=== PATIENT | male | born 1960 | race Caucasian/White ===

== ENCOUNTER 2018-02-19 07:33 | Emergency (ER) | payer MEDICARE ==
[~2018-02-19] VITALS: Ht 177.8 cm; Wt 104.5 kg
[~2018-02-19 07:33] MED LIST: ASPIRIN325 MG PO; DOXYCYCLINE HY100 M2 PO; FOLATE0.4 MG; FOLIC ACID1 MG PO; HUMIRA20 MG/0.4 SQ; MEDROL2 MG PO; NAPROSYN500 MG PO; NORCO 10/325 TA1 TA1 PO; NORCO 5/325 TAB1 TA1 PO; OXYCODONE HCL5 MG PO; PRILOSEC20 MG PO; ROCEPHIN 2 GM/D52 G1 IV; SILVASORB HYDRO45 GM TP; TREXALL10 MG PO; VIBRAMYCIN 100100 MG PO
[2018-02-19 07:37] VITALS: Ht 177.8 cm; Wt 104.5 kg
[2018-02-19] MEDS ORDERED: NEURONTIN 300300 MG PO (07:39)
[2018-02-19] MEDS ORDERED: NORCO 10-325 TA1 TAB PO (07:39)
[2018-02-19] MEDS ORDERED: MEDROL4 MG PO (07:39)
[2018-02-19] MEDS ORDERED: DILAUDID4 MG PO (08:05)
[2018-02-19] MEDS ORDERED: MINOCIN100 MG PO (08:05)
[2018-02-19 08:29] VITALS: BP 141/78
== END 2018-02-19 08:22 | disposition home or self-care (01) ==
LOC: D.ER 07:33
DX: L03.032 Cellulitis of left toe (principal); R23.4 Changes in skin texture; I73.9 Peripheral vascular disease, unspecified; M06.9 Rheumatoid arthritis, unspecified; I25.10 Atherosclerotic heart disease of native coronary artery without angina pectoris; J44.9 Chronic obstructive pulmonary disease, unspecified; K21.9 Gastro-esophageal reflux disease without esophagitis; F17.200 Nicotine dependence, unspecified, uncomplicated

== ENCOUNTER → 2018-03-01 15:58 | Outpatient (CLI) | payer MEDICARE ==
[2018-02-19 07:37] VITALS: BMI 33.0
[~2018-03-01 15:58] MED LIST changes: +ASPIRIN81 MG PO; +DILAUDID4 MG PO; +LEVOFLOXACIN500 MG PO; +MEDROL4 MG PO; +MINOCIN100 MG PO; +NEURONTIN 300300 MG PO; +NORCO 10-325 TA1 TAB PO; +Nicoderm [PBKC] TRANSDERM; +PLAVIX75 MG PO
== END | disposition home or self-care (01) ==
LOC: D.LABREF 15:58
DX: L03.032 Cellulitis of left toe (principal)

== ENCOUNTER → 2018-03-13 09:26 | Outpatient (CLI) | payer MEDICARE ==
[2018-02-19 07:37] VITALS: BMI 33.0
== END | disposition home or self-care (01) ==
LOC: D.CT 09:26
DX: I70.213 Atherosclerosis of native arteries of extremities with intermittent claudication, bilateral legs (principal); I73.9 Peripheral vascular disease, unspecified

== ENCOUNTER 2018-03-25 09:36 | Inpatient (IN) | payer MEDICARE ==
[~2018-03-25] VITALS: Ht 177.8 cm; Wt 104.3 kg
--- NOTE | ~2018-03-25 | MORECARE ---
CASE MANAGEMENT DISCHARGE SUMMARY PATIENT: GOSIA AMES UNIT: [id number] ADM DATE: 03/25/18 AGE: 57 : 64 SEX: M ROOM/BED: D.2238 AUTHOR: CHANTELLE,DOC PHYSICIAN: REFERRING PHYSICIAN: BRANDIN RUELAS MD DATE OF SERVICE: 03/28/18 Discharge Plan Patient Name: GOSIA AMES Facility: [facility]:[place] : 1960 Planned Disposition: Home with Home Health Anticipated Discharge Date: 03/28/18 Discharge Date: Expected LOS: 3 Initial Reviewer: [email or web address] Initial Review Date: 03/28/2018 Generated: 03/28/18 5:41 pm Comments DCP- Discharge Planning Updated by [email or web address]: Daija Calixto on 03/28/18 3:[address] Patient Name: GOSIA AMES Admission Status: ER Accout number: [id number] Admission Date: 03-25-2018 : 1960 Admission Diagnosis:NON-PRESSURE CHRONIC ULCER OF SKIN OF SITES W UNSP KALI Attending: BRANDIN RUELAS Current LOS: 3 Anticipated DC Date: 03-28-2018 Planned Disposition: Home with Home Health Primary Insurance: MEDICARE A & B Discharge Planning Comments: Received order for discharge. I met with patient and daughter to discuss discharge planning. He is going to live with her at [address] [place] [address]. He states he is active with all ADL's and IADL's. States he has a crutch and walker if needed for ambulation. Denies other DME needs. States he would like [facility] for dressing changes. Deyanira called with [facility] and informed of address he will be at. Deyanira states they can see him on Sunday. CM will continue to follow and assist with discharge planning/needs. Home today with home health Inside Channel Account Manager: Daija Calixto DCPIA - Discharge Planning Initial Assessment Updated by [email or web address]: Daija Calixto on 03/28/18 4:30 pm * Is the patient Alert and Oriented? Yes * How many steps to enter\exit or inside your home? 1/0 * PCP Dr. Rosen * Pharmacy [facility] * Preadmission Environment Home with Family * ADLs Independent * Equipment Crutch Walker * List name and contact numbers for known caregivers / representatives who currently or will assist patient after discharge: Leonela Farnsworth - DTR - [phone] * Verbal permission to speak to the caregivers and representatives has been obtained from the patient. Yes * Community resources currently utilized None * Additional services required to return to the preadmission environment? Yes * Can the patient safely return to the preadmission environment? Yes * Has this patient been hospitalized within the prior 30 days at any hospital? No External Providers External Provider: [facility] Next Contact Date: Service Request Date: Service Type: Resolution: Reviewer: Comments: Coverage Notice Reviewer: [email or web address] Tiago Calixto Notice Issued Date-Time: 03/28/2018 16:27 Notice Type: IM Discharge Notice Notice Delivered To: Patient Relationship to Patient: Self Bench Tool Maker Name: Delivery Method: HAND - Hand Delivered Agustina Days: Prior Verbal Notification: Recipient Understood Notice: Yes Recipient Signature: Yes Med Rec Note Co-signed by Attending: Coverage Notice Comment: IMM explained, signed, copy given, original placed on MR Patient Name: GOSIA AMES Page 11671 at 1641 All edits/amendments must be made on the electronic document DICTATION DATE: 03/28/181640 KILN SETTER: DAVID 03/28/181640 RPT#: [id number] DC DATE: STATUS: ADM IN [facility] [address] [place] [address] END OF REPORT
--- NOTE | ~2018-03-25 | HEMODYNAMI ---
PATIENT:GOSIA AMES MEDICAL RECORD: [id number] : 64 LOCATION:D.MS Paz2238 ADMISSION DATE: 03/25/18 Generatedon:03/27/201815:19 Patient name: GOSIA AMES Patient #: [id number] SSN: : 1960 Date of study: 03/27/2018 Page: Of Hemodynamic Procedure Report Patient Data Patient Demographics Procedure consent was obtained First Name: GOSIA Gender: Male Last Name: KWAKU : 1960 Middle Initial: SURAJ Age: 57 year(s) Patient #: [id number] Race: Unknown Additional ID: [id number] Contact details Address: [address] [place] [address] [address] State: [place] City: [facility] Zip code: [address] Admission Admission Data Admission Date: 03/25/2018 Admission Time: 13:30 Room #: D.2238 Height (in.): 70 BSA: 2.21 (m2) Height (cm.): 177.8 BMI: 32.86 (kg/m2) Weight (lbs.): 229 Weight (kg.): 103.87 Procedure Procedure Types Cath Procedure Peripheral Cath Diagnostic Procedure Curator [employer] Peripheral Procedures Abd/Extremity Extremities Bilat Lower Extremity Procedure Description Procedure Date Procedure Date: 03/27/2018 Procedure Start Time: 13:29 Procedure Staff Name Function Andrés Patten MD Performing Physician Vero Avlarez RT Air Plant Engineer Marjorie Flores RN Nurse Jenae Berrios RN Nurse Erwin Linares RT Scrub Roland Victor MD Additional personnel Procedure Data Cath Procedure Fluoroscopy Diagnostic fluoroscopy Total fluoroscopy Time: time: 17.1 min 17.1 min Diagnostic fluoroscopy Total fluoroscopy dose: dose: 2451 mGy 2451 mGy Contrast Material Contrast Material Type Amount (ml) Isovue 300 190 Entry Location Entry Primary Successful Side Size Upsize Upsize Entry Closure Succes sful Closure Location (Fr) 1 (Fr) 2 (Fr) Remarks Device Remarks Femoral Exoseal artery Procedure Medications Medication Administration Route Dosage Lidocaine 1% added to field 20 Heparin Flush Bag added to field 3 (1000units/500ml NS) Oxygen etCO2 Nasal cannula 6 l/min Heparin Bolus I.V. 5000 units Hemodynamics Rest BSA: 2.21 (m2) O2 Consumption: Estimated: 286.51 (ml/min) O2 Consumption indexed : Estimated:129.64 (ml/min/m) Heart Rate: 99 (bpm) Snapshots Pre Cath Intra NCS Post Cath Vital Signs Time Heart Resp SPO2 NIBP (mmHg) Rhythm Pain Sedation Rate (ipm) (%) Status Level (bpm) 13:11:40 98 12 86 No Cuff NSR 0 (11) 10(A) , No pain 13:14:26 102 10 99 148/87(118) ST 0 (11) 10(A) , No pain 13:18:44 99 15 99 107/72(87) NSR 0 (11) 8(A) , No pain 13:22:56 103 13 100 124/83(96) ST 0 (11) 8(A) , No pain 13:27:16 100 12 98 131/78(102) ST 0 (11) 8(A) , No pain 13:31:34 97 13 96 120/79(95) NSR 0 (11) 8(A) , No pain 13:35:52 97 13 95 130/81(98) NSR 0 (11) 8(A) , No pain 13:40:14 96 13 96 124/79(92) NSR 0 (11) 8(A) , No pain 13:44:36 93 13 95 125/73(97) NSR 0 (11) 8(A) , No pain 13:48:59 93 13 96 127/79(95) NSR 0 (11) 8(A) , No pain 13:53:21 93 12 100 134/80(98) NSR 0 (11) 8(A) , No pain 13:57:45 92 12 100 131/82(94) NSR 0 (11) 8(A) , No pain 14:02:07 91 13 100 132/82(104) NSR 0 (11) 8(A) , No pain 14:06:31 91 13 100 132/78(95) NSR 0 (11) 8(A) , No pain 14:10:53 92 13 100 142/84(113) NSR 0 (11) 8(A) , No pain 14:15:52 90 13 100 Measuring NSR 0 (11) 8(A) , No pain 14:16:29 91 13 100 135/82(108) NSR 0 (11) 8(A) , No pain 14:25:55 [address] 0 (11) 8(A) , No pain 14:27:17 [address] 0 (11) 8(A) Exceeded , No pain 14:31:59 100 12 100 183/115(135) ST 0 (11) 8(A) , No pain 14:36:44 96 10 100 169/115(145) ST 0 (11) 8(A) , No pain 14:38:57 95 10 100 170/107(127) ST 0 (11) 8(A) , No pain 14:42:20 93 8 100 164/100(124) ST 0 (11) 8(A) , No pain 14:46:50 92 12 100 157/94(128) ST 0 (11) 8(A) , No pain 14:51:18 89 8 100 153/90(118) ST 0 (11) 8(A) , No pain 14:56:18 [address] 0 (11) 8(A) , No pain 14:56:44 94 11 100 167/101(136) ST 0 (11) 8(A) , No pain 15:01:13 86 10 100 131/82(114) ST 0 (11) 8(A) , No pain 15:05:27 82 11 100 133/93(109) ST 0 (11) 8(A) , No pain 15:10:26 [address] 0 (11) 8(A) , No pain 15:10:50 91 14 96 168/90(136) ST 0 (11) 8(A) , No pain 15:15:16 88 152/85(118) ST 0 (11) 8(A) , No pain Medications Time Medication Route Dose Verified Delivered Reason Notes Effe ctiveness by by 13:21:57 Lidocaine 1% added 20ml Andrés Bowen used for to vial Sandor Patten MD procedure field MD 13:22:17 Heparin Flush added 3 Andrés Bowen used for Bag to BAGS Sandor Patten MD procedure (1000units/500ml field NS) 13:22:47 Oxygen etCO2 6 Andrés Amador for Nasal l/min Mark Patten RN sedation cannula 14:02:18 Heparin Bolus I.V. 5000 Andrés Emanuel units Yash Patten RN, MD Procedure Log Time Note 12:32:57 Patient Weight : 229 lbs 12:33:04 Patient Height : 70 inches 13:05:33 Time tracking: Regular hours (M-F 7:00 - 5:00) 13:05:50 Plan of Care:Hemodynamics will remain stable., Cardiac rhythm will remain stable., Comfort level will be maintained., Respiratory function will remain adequate., Patient/ family verbilizes understanding of procedure., Procedure tolerated without complication., Recovers from procedure without complications.. 13:06:00 Patient received from Med/Surg to IR Alert and oriented. Tansferred to table in Supine position. 13:06:11 Signed procedure consent form obtained from patient. 13:06:27 H&P Date Dictated: 03/27/2018 Within 30 days and on chart.. 13:06:29 Pre-procedure instructions explained to patient. 13:06:31 Pre-op teaching completed and patient verbalized understanding. 13:06:51 Family in waiting room. 13:06:54 Patient NPO since Midnight. 13:07:18 Is the patient allergic to Iodine/contrast media? No. 13:07:25 - 13:07:26 ----Pre-sedation anethsthesia assessment.----see anesthesia notes for monitoring of patient during procedure 13:07:52 - 13:07:52 - 13:08:09 Use device set IR Diagnostic 13:08:11 Tegaderm 4 x 4 (1626W) opened to sterile field. 13:08:12 Sterile Angiographic Pack opened to sterile field. 13:08:13 Bag Decanter () opened to sterile field. 13:08:14 ACIST Manifold (01392) opened to sterile field. 13:08:15 ACIST Hand Control (48780) opened to sterile field. 13:08:16 ACIST Syringe (00037) opened to sterile field. 13:08:40 SHEATH 5FR [place] (GBB490) opened to sterile field. 13:08:41 Micropuncture VSI 4FR kit opened to sterile field. 13:08:42 Angiodynamics Omniflush 5Fr 65cm (21396178) opened to sterile field. 13:08:52 TUBING Contrast Injection High Pressure (JWO601F) opened to sterile field. 13:09:05 DOC .035 wire (Y08326) opened to sterile field. 13:09:29 - 13:09:48 IV patent on arrival in Right upper arm with D5/.45%NaCl at KVO. 13:10:08 Pre procedure: right dorsailis pedis pulse Doppler 13:10:13 Pre procedure: left dorsailis pedis pulse Doppler 13:10:18 Pre procedure: right posterior tibial pulse Doppler 13:10:35 Pre procedure: left posterior tibial pulse 0-Absent 13:10:44 - 13:10:49 ECG and BP/O2 sat monitors applied to patient. 13:10:50 Vital chart was started 13:10:51 Baseline sample Acquired. 13:10:54 Full Disclosure recording started 13:10:55 - 13:13:44 - 13:13:52 Right groin area was prepped with chlora-prep and draped in sterile fashion 13:13:57 Left groin area was prepped with chlora-prep and draped in sterile fashion 13:13:59 - 13:21:57 Lidocaine 1% 20ml vial added to field was administered by Andrés Patten MD; used for procedure; ::17 Heparin Flush Bag (1000units/500ml NS) 3 BAGS added to field was administered by Andrés Patten MD; used for procedure; ::47 Oxygen 6 l/min etCO2 Nasal cannula was administered by Marjorie Flores RN; for sedation; ::47 Physician arrived 13::27 --------ALL STOP TIME OUT------ 13::29 Final Timeout: patient, procedure, and site verified with staff and physician. All members of the team are in agreement. :29:13 Procedure started. 13:29:19 Local anesthetic to right femoral artery with Lidocaine 1% by Andrés Patten MD.INITIAL ACCESS ONLY 13:29:43 GLIDE CATHETER 5FR ANGLED 65cm (CG507) opened to sterile field. 13:34:22 Cordis 5Fr BRITE TIP 11cm sheath opened to sterile field. 13:45:45 Cordis 5Fr BRITE TIP 11cm sheath opened to sterile field. 13:45:46 CXI Catheter 90cm (H76908) opened to sterile field. 13:45:47 KIMBLE 260 wire (O62484) opened to sterile field. 13:46:21 GLIDE WIRE ANGLE 180cm (RU3427) opened to sterile field. 13:46:28 TORQUE DEVICE PLASTIC .038 ( TD01) opened to sterile field. 13:54:30 ROADRUNNER FIRM 260CM glide wire (E80465) opened to sterile field. 13:54:42 Cordis 5Fr [place] Destination sheath opened to sterile field. 14:02:18 Heparin Bolus 5000 units I.V. was administered by Jenae Berrios RN; ; 14:03:23 Inflate balloon Inflation number: 1 A Evercross 3 x 6 x 135 Balloon ([id number]) was prepped and advanced across the Undefined1, then inflated. 14:04:17 INFLATOR BasixTOUCH (DX8229) opened to sterile field. 14:10:01 SHEATH 6FR Destination (RSR01) opened to sterile field. 14:13:33 Protege GPS 10x 60 X 120 Stent ([id number]) was deployed across Undefined1 . 14:16:16 Inflate balloon Inflation number: 2 A Evercross 8 x 6 x 135 Balloon ([id number]) was prepped and advanced across the Undefined1, then inflated). 14:24:55 Protege GPS 10x 40 X 120 Stent ([id number]) was deployed across Undefined1 . 14:28:44 Inflate balloon Inflation number: 3 A Evercross 6 x 6 x 135 Balloon ([id number]) was prepped and advanced across the Undefined1, then inflated. 14:40:23 SHEATH 6FR [place] (FGY553) opened to sterile field. 15:03:00 Sheath removed intact; hemostasis achieved with Exoseal to the Femoral artery. 15:03:00 A sheath was inserted into the Femoral artery 15:03:10 EXOSEAL 6Fr (EX600) opened to sterile field. 15:03:14 Procedure ended.(Physican Out) 15:03:55 Fluoroscopy time 17.10 minutes. 15:04:26 Fluoroscopy dose: 2451 mGy 15:04:26 Flurop Dose total: 2451 15:04:34 Contrast amount:Isovue 300 190ml. 15:04:37 Procedure and supply charges have been captured, reviewed, submitted an d are correct. 15:19:25 Vital chart was stopped Intervention Summary Intervention Notes Time ActionType Lesion and Equipment Used Action# Pressure Duration Attributes 14:03:23 Inflate Undefined1 Evercross 3 x 6 x 1 0 00:00 balloon 135 Balloon ([id number]) 14:13:33 Deploy self Undefined1 Protege GPS 10x 60 1 expanding X 120 Stent stent (Onsu75-84-03-864) 14:16:16 Inflate Undefined1 Evercross 8 x 6 x 2 0 00:00 balloon 135 Balloon ([id number]) 14:24:55 Deploy self Undefined1 Protege GPS 10x 40 1 expanding X 120 Stent stent (Irub49-29-81-186) 14:28:44 Inflate Undefined1 Evercross 6 x 6 x 3 0 00:00 balloon 135 Balloon ([id number]) Device Usage Item Name Manufacture Quantity Catalog Number [facility] Part rrent Minimal Lot# / Charge Number Stock Stock Serial# Code Tegaderm 4 x 4 3M 1 1626W [id number] 490252 99 3743 5 (1626W) Sterile Cardinal 1 [id number] 579921 99 8453 5 Angiographic Pack Health Bag Decanter Microtek 1 255561 24202 98 8576 5 () Medical Inc. ACIST Manifold Acist Medical 1 68614 789937 490800 99 0297 5 (53907) Systems Inc ACIST Hand Control Acist Medical 1 76660 179338 511553 99 0280 5 (10962) Systems Inc ACIST Syringe Acist Medical 1 88008 089472 457802 98 9856 20 (77054) Systems Inc SHEATH 5FR Terumo 1 LRS044 883796 809528 99 6141 40 [place] (OMX903) Micropuncture VSI VSI VASCULAR 1 7266V 022823 99 9423 5 4FR kit SOLUTIONS Angiodynamics Angiodynamics 1 10470643 743003 773150 99 9966 5 Omniflush 5Fr 65cm (53463859) TUBING Contrast [facility] Medical 1 ZII726L 589613 234106 99 9515 5 Injection High Pressure (FZW329B) DOC .035 wire [facility] 1 G93323 465108 99 9568 5 (J57044) GLIDE CATHETER 5FR Terumo 1 CG507 566941 99 9779 5 ANGLED 65cm (CG507) Cordis 5Fr BRITE Cardinal 2 695068P 806260 99 9978 5 TIP 11cm sheath Health CXI Catheter 90cm DigePrint [facility] 1 K81563 822367 118779 99 9940 5 0608365 (Y69019) KIMBLE 260 wire [facility] 1 N87128 316748 25722 99 9654 5 5223469 (Z87376) GLIDE WIRE ANGLE Terumo 1 UR4545 271265 921817 99 9683 5 180cm (IC1734) TORQUE DEVICE [place] 1 TD01 461673 049424 99 9420 5 PLASTIC .038 ( Scientific TD01) ROADRUNNER FIRM [facility] 1 K34511 916608 99 9971 5 260CM glide wire (E76015) Cordis 5Fr Cardinal 1 [id number] 804278 79605 99 9991 5 [place] [facility] Destination sheath Evercross 3 x 6 x Medtronic 1 [id number] 777454 632466 99 9997 5 Q755864 135 Balloon ([id number]) INFLATOR [facility] 1 CQ3033 119179 668516 99 9840 5 BasixTOUCH (KB2156) SHEATH 6FR Terumo 1 RSR01 097870 13519 99 9710 5 Destination (RSR01) Protege GPS 10x 60 Medtronic 1 SHYG98-97-79-491 180759 902703 99 9998 5 M035380 X 120 Stent N321424 (Joag47-95-23-382) Evercross 8 x 6 x Medtronic 1 [id number] 759321 507669 99 9994 5 A313066 135 Balloon ([id number]) Protege GPS 10x 40 Medtronic 1 HWRJ03-18-77-068 681300 459175 99 9996 5 F514208 X 120 Stent A419969 (Rzil25-72-27-664) Evercross 6 x 6 x Medtronic 1 [id number] 974124 99 9996 5 [id number] 135 Balloon ([id number]) SHEATH 6FR Terumo 1 TNG597 770867 535756 99 6439 40 [place] (OUH722) EXOSEAL 6Fr Cardinal 1 EX600 151420 984813 99 7323 10 (EX600) Health Signature Audit [place] Stage Time Signature Unsigned Intra-Procedure 03/27/2018 Vero Alvarez 3:19:20 PM RT(R) [facility] [address] [place] [address]
--- NOTE | ~2018-03-25 | MORECARE ---
CASE MANAGEMENT DISCHARGE SUMMARY PATIENT: GOSIA AMES UNIT: [id number] ADM DATE: 03/25/18 AGE: 57 : 64 SEX: M ROOM/BED: D.2238 AUTHOR: CHANTELLEDOC PHYSICIAN: REFERRING PHYSICIAN: BRANDIN RUELAS MD DATE OF SERVICE: 03/29/18 Discharge Plan Patient Name: GOSIA AMES Facility: [facility]:[place] : 1960 Planned Disposition: Home with Home Health Anticipated Discharge Date: 03/28/18 Discharge Date: 03/28/2018 Expected LOS: 3 Initial Reviewer: [email or web address] Initial Review Date: 03/28/2018 Generated: 03/29/18 4:05 pm Comments DCP- Discharge Planning Updated by [email or web address]: Daija Calixto on 03/28/18 3:[address] Patient Name: GOSIA AMES Admission Status: ER Accout number: [id number] Admission Date: 03-25-2018 : 1960 Admission Diagnosis:NON-PRESSURE CHRONIC ULCER OF SKIN OF SITES W UNSP KALI Attending: BRANDIN RUELAS Current LOS: 3 Anticipated DC Date: 03-28-2018 Planned Disposition: Home with Home Health Primary Insurance: MEDICARE A & B Discharge Planning Comments: Received order for discharge. I met with patient and daughter to discuss discharge planning. He is going to live with her at [address] [place] [address]. He states he is active with all ADL's and IADL's. States he has a crutch and walker if needed for ambulation. Denies other DME needs. States he would like [facility] for dressing changes. Deyanira called with [facility] and informed of address he will be at. Deyanira states they can see him on Sunday. will continue to follow and assist with discharge planning/needs. Home today with home health Getterer: Daija Calixto DCPIA - Discharge Planning Initial Assessment Updated by [email or web address]: Daija Calixto on 03/28/18 4:30 pm * Is the patient Alert and Oriented? Yes * How many steps to enter\exit or inside your home? 1/0 * PCP Dr. Rosen * Pharmacy [facility] * Preadmission Environment Home with Family * ADLs Independent * Equipment Crutch Walker * List name and contact numbers for known caregivers / representatives who currently or will assist patient after discharge: Leonela Farnsworth - DTR - [phone] * Verbal permission to speak to the caregivers and representatives has been obtained from the patient. Yes * Community resources currently utilized None * Additional services required to return to the preadmission environment? Yes * Can the patient safely return to the preadmission environment? Yes * Has this patient been hospitalized within the prior 30 days at any hospital? No Coverage Notice Reviewer: [email or web address] Tiago Calixto Notice Issued Date-Time: 03/28/2018 16:27 Notice Type: IM Discharge Notice Notice Delivered To: Patient Relationship to Patient: Self Corporate Intern Name: Delivery Method: HAND - Hand Delivered Agustina Days: Prior Verbal Notification: Recipient Understood Notice: Yes Recipient Signature: Yes Med Rec Note Co-signed by Attending: Coverage Notice Comment: IMM explained, signed, copy given, original placed on MR Last DP export: 03/28/18 3:41 Patient Name: GOSIA AMES Page 96282 at 1505 All edits/amendments must be made on the electronic document DICTATION DATE: 03/29/18 1505 GAS PROVER: DAVID 03/29/18 1505 RPT#: [id number] DC DATE:03/28/18 STATUS: DIS IN [facility] [address] [place] [address] END OF REPORT
[~2018-03-25 09:36] MED LIST changes: -ASPIRIN81 MG PO; -LEVOFLOXACIN500 MG PO; -Nicoderm [PBKC] TRANSDERM; -PLAVIX75 MG PO
[2018-03-25 10:46] LABS: BASOPHILS 0.2 % (0-2); EOSINOPHILS 3.9 % (0-7); HEMATOCRIT 42.7 % (42.0-54.0); HEMOGLOBIN 14.3 g/dL (13.5-17.5); IMMATURE GRANULOCYTES 0.4 % (0-5); LYMPHOCYTES 24.5 % (15-50); MCHC 33.5 g/dL (31.0-37.0); MCV 89.5 fL (80.0-100.0); MEAN PLATELET VOLUME 9.3 fL (7.4-10.4); MONOCYTES 4.7 % (2-11); NEUTROPHILS 66.3 % (40-80); PLATELET COUNT 334 10x3/uL (130-400); RBC 4.77 10x6/uL (4.20-6.10); RDW 13.7 % (11.5-14.5)
[2018-03-25 10:57] LABS: INR 0.99 (0.85-1.17); PROTIME 12.6 SECONDS (11.6-15.0)
[2018-03-25 11:04] LABS: ALBUMIN 2.7 g/dL (3.4-5.0); ALKALINE PHOSPHATASE 76 U/L (46-116); ALT (SGPT) 22 U/L (10-68); BILIRUBIN - TOTAL 0.32 mg/dL (0.2-1.3); CALC OSMOLALITY 271 mosm/kg (275-300); CALCIUM 8.7 mg/dL (8.5-10.1); CHLORIDE - SERUM 101 mmol/L (98-107); CREATININE - SERUM 0.9 mg/dL (0.6-1.3); GLUCOSE 102 mg/dL (74-106); POTASSIUM - SERUM 3.4 mmol/L (3.5-5.1); PROTEIN - SERUM 6.7 g/dL (6.4-8.2); SODIUM 136 mmol/L (136-145); UREA NITROGEN 12 mg/dL (7-18); eGFR NON AFRICAN AMERICAN > 90 mL/min (90-120)
[2018-03-25 11:15] LABS: CKMB 2.6 U/L (0.0-3.6); MAGNESIUM - SERUM 1.7 mg/dL (1.8-2.4); PRO BNP 69 pg/mL (0-125)
[2018-03-25 17:53] VITALS: BP 158/73
[2018-03-25 21:04] VITALS: BP 126/88
[2018-03-26 00:18] VITALS: BP 134/80
[2018-03-26 04:29] VITALS: BP 120/70
[2018-03-26 05:16] LABS: BASOPHILS 0.1 % (0-2); EOSINOPHILS 4.8 % (0-7); HEMATOCRIT 40.1 % (42.0-54.0); IMMATURE GRANULOCYTES 0.3 % (0-5); LYMPHOCYTES 26.6 % (15-50); MCH 29.5 pg (26.0-34.0); MCHC 32.4 g/dL (31.0-37.0); MCV 90.9 fL (80.0-100.0); MEAN PLATELET VOLUME 9.7 fL (7.4-10.4); MONOCYTES 5.4 % (2-11); NEUTROPHILS 62.8 % (40-80); PLATELET COUNT 360 10x3/uL (130-400); RBC 4.41 10x6/uL (4.20-6.10); RDW 13.7 % (11.5-14.5)
[2018-03-26 05:43] LABS: WBC 7.9 10x3/uL (4.8-10.8)
[2018-03-26 05:53] LABS: ALBUMIN 2.2 g/dL (3.4-5.0); ALKALINE PHOSPHATASE 58 U/L (46-116); ALT (SGPT) 18 U/L (10-68); CALC OSMOLALITY 278 mosm/kg (275-300); CARBON DIOXIDE 28.4 mmol/L (21.0-32.0); CHLORIDE - SERUM 104 mmol/L (98-107); CREATININE - SERUM 0.9 mg/dL (0.6-1.3); GLUCOSE 109 mg/dL (74-106); POTASSIUM - SERUM 3.7 mmol/L (3.5-5.1); PROTEIN - SERUM 6.1 g/dL (6.4-8.2); SODIUM 139 mmol/L (136-145); UREA NITROGEN 13 mg/dL (7-18); eGFR NON AFRICAN AMERICAN > 90 mL/min (90-120)
[2018-03-26 08:23] LABS: APTT 28.7 SECONDS (22.8-39.4); INR 1.02 (0.85-1.17); PROTIME 12.9 SECONDS (11.6-15.0)
[2018-03-26 12:45] VITALS: BP 134/76
[2018-03-26 15:57] VITALS: Ht 177.8 cm; Wt 104.3 kg
[2018-03-26 17:52] VITALS: BP 115/56
[2018-03-26 21:23] VITALS: BP 112/65
[2018-03-27] VITALS (10 sets, daily range): BP systolic 91–156; BP diastolic 54–80
[2018-03-27 06:17] LABS: BASOPHILS 0.1 % (0-2); EOSINOPHILS 3.3 % (0-7); HEMATOCRIT 39.7 % (42.0-54.0); IMMATURE GRANULOCYTES 0.3 % (0-5); LYMPHOCYTES 23.8 % (15-50); MCH 29.4 pg (26.0-34.0); MCHC 32.7 g/dL (31.0-37.0); MCV 89.8 fL (80.0-100.0); MEAN PLATELET VOLUME 9.6 fL (7.4-10.4); MONOCYTES 4.8 % (2-11); NEUTROPHILS 67.7 % (40-80); PLATELET COUNT 348 10x3/uL (130-400); RBC 4.42 10x6/uL (4.20-6.10); RDW 13.8 % (11.5-14.5); WBC 9.7 10x3/uL (4.8-10.8)
[2018-03-27 06:44] LABS: ALBUMIN 2.3 g/dL (3.4-5.0); ALKALINE PHOSPHATASE 63 U/L (46-116); ALT (SGPT) 19 U/L (10-68); BILIRUBIN - TOTAL 0.26 mg/dL (0.2-1.3); CALC OSMOLALITY 270 mosm/kg (275-300); CALCIUM 8.6 mg/dL (8.5-10.1); CARBON DIOXIDE 29.8 mmol/L (21.0-32.0); CHLORIDE - SERUM 101 mmol/L (98-107); CREATININE - SERUM 0.8 mg/dL (0.6-1.3); GLUCOSE 93 mg/dL (74-106); PROTEIN - SERUM 6.4 g/dL (6.4-8.2); SODIUM 136 mmol/L (136-145); eGFR NON AFRICAN AMERICAN > 90 mL/min (90-120)
[2018-03-27 06:56] LABS: UREA NITROGEN 9 mg/dL (7-18)
[2018-03-28 01:05] VITALS: BP 96/61
[2018-03-28 05:18] LABS: BASOPHILS 0.1 % (0-2); EOSINOPHILS 0 % (0-7); HEMATOCRIT 39.3 % (42.0-54.0); HEMOGLOBIN 12.8 g/dL (13.5-17.5); IMMATURE GRANULOCYTES 0.2 % (0-5); MCH 29.4 pg (26.0-34.0); MCHC 32.6 g/dL (31.0-37.0); MCV 90.1 fL (80.0-100.0); MEAN PLATELET VOLUME 9.6 fL (7.4-10.4); MONOCYTES 5.2 % (2-11); NEUTROPHILS 85.5 % (40-80); PLATELET COUNT 335 10x3/uL (130-400); RBC 4.36 10x6/uL (4.20-6.10); RDW 13.5 % (11.5-14.5)
[2018-03-28 05:23] LABS: WBC 13.1 10x3/uL (4.8-10.8)
[2018-03-28 06:04] LABS: ALBUMIN 2.2 g/dL (3.4-5.0); ALKALINE PHOSPHATASE 59 U/L (46-116); ALT (SGPT) 21 U/L (10-68); BILIRUBIN - TOTAL 0.26 mg/dL (0.2-1.3); CALCIUM 8.7 mg/dL (8.5-10.1); CARBON DIOXIDE 30.7 mmol/L (21.0-32.0); CHLORIDE - SERUM 101 mmol/L (98-107); POTASSIUM - SERUM 4.2 mmol/L (3.5-5.1); PROTEIN - SERUM 6.5 g/dL (6.4-8.2); SODIUM 139 mmol/L (136-145); eGFR NON AFRICAN AMERICAN 82 mL/min (90-120)
[2018-03-28 06:12] LABS: CALC OSMOLALITY 280 mosm/kg (275-300); GLUCOSE 146 mg/dL (74-106); UREA NITROGEN 13 mg/dL (7-18)
[2018-03-28 06:35] VITALS: BP 100/58
[2018-03-28 08:15] VITALS: BP 120/64
[2018-03-28] MEDS ORDERED: VIBRAMYCIN 100100 MG PO (16:00)
[2018-03-28] MEDS ORDERED: ASPIRIN81 MG PO (16:00)
[2018-03-28] MEDS ORDERED: Nicoderm [PBKC] TRANSDERM (16:00)
[2018-03-28] MEDS ORDERED: PLAVIX75 MG PO (16:00)
[2018-03-28 16:02] VITALS: BP 115/74
[2018-03-28] MEDS ORDERED: LEVOFLOXACIN500 MG PO (16:50)
== END 2018-03-28 17:45 | disposition home health service (06) | DRG 253 ==
LOC: D.ER 09:36 → D.MS 13:30 → D.EDHOLD 13:30 → D.MS 15:41
PROVIDERS: Family Medicine; General Practice
PROC: 047D3DZ Dilation of Left Common Iliac Artery with Intraluminal Device, Percutaneous Approach (ICD-10-PCS; principal; 2018-03-27 13:00)
DX: I70.292 Other atherosclerosis of native arteries of extremities, left leg (principal); F17.213 Nicotine dependence, cigarettes, with withdrawal; L03.032 Cellulitis of left toe; I25.10 Atherosclerotic heart disease of native coronary artery without angina pectoris; J44.9 Chronic obstructive pulmonary disease, unspecified; K21.9 Gastro-esophageal reflux disease without esophagitis; E87.6 Hypokalemia

== ENCOUNTER → 2018-04-02 09:54 | Outpatient (CLI) | payer MEDICARE ==
[~2018-04-02 09:54] MED LIST changes: +ASPIRIN81 MG PO; +LEVOFLOXACIN500 MG PO; +Nicoderm [PBKC] TRANSDERM; +PLAVIX75 MG PO
== END | disposition home or self-care (01) ==
LOC: D.CT 09:54
DX: I73.89 Other specified peripheral vascular diseases (principal)

== ENCOUNTER 2018-04-25 05:05 | Day surgery (SDC) | payer MEDICARE ==
[2018-04-24 15:08] LABS: HEMATOCRIT 42.8 % (42.0-54.0); HEMOGLOBIN 14.4 g/dL (13.5-17.5); MCH 29.8 pg (26.0-34.0); MCHC 33.6 g/dL (31.0-37.0); MCV 88.4 fL (80.0-100.0); MEAN PLATELET VOLUME 9.5 fL (7.4-10.4); RBC 4.84 10x6/uL (4.20-6.10); RDW 14.1 % (11.5-14.5); WBC 10.6 10x3/uL (4.8-10.8)
[~2018-04-25] VITALS: Ht 172.7 cm; Wt 104.3 kg
[2018-04-25] MEDS ORDERED: OMEPRAZOLE20 M1 PO (06:11)
[2018-04-25 06:12] VITALS: BP 145/87; Ht 172.7 cm; Wt 104.3 kg
[2018-04-25] MEDS ORDERED: NORCO 10-325 TA1 TAB PO (08:54)
[2018-04-25] MEDS ORDERED: XANAX0.25 MG PO (09:16)
--- NOTE | 2018-04-25 10:04 | NUR ---
DC INSTRUCTIONS GIVEN TO PT/FAMILY. STATE UNDERSTANDING. DC'D IV CATH FULLY INTACT.
--- NOTE | 2018-04-25 10:18 | NUR ---
PT LEFT UNIT VIA WC AT 1019
== END 2018-04-25 10:19 | disposition home or self-care (01) ==
LOC: D.OPS 05:05 → D.PAN 07:30 → D.OPS 07:30 → D.PAN 08:10 → D.OPS 10:19
PROVIDERS: Anesthesiology
DX: M86.8X7 Other osteomyelitis, ankle and foot (principal); I96 Gangrene, not elsewhere classified; M20.42 Other hammer toe(s) (acquired), left foot; Z01.812 Encounter for preprocedural laboratory examination

== ENCOUNTER 2018-06-02 09:45 | Inpatient (IN) | payer OTHER ==
[2018-06-02] VITALS (7 sets, daily range): BP systolic 103–147; BP diastolic 47–74; BMI 39.1
[~2018-06-02] VITALS: Ht 172.7 cm; Wt 116.6 kg
[~2018-06-02 09:45] MED LIST changes: +OMEPRAZOLE20 M1 PO; +XANAX0.25 MG PO
[2018-06-02 10:12] LABS: BASOPHILS 0.1 % (0-2); EOSINOPHILS 0.5 % (0-7); HEMOGLOBIN 16.6 g/dL (13.5-17.5); IMMATURE GRANULOCYTES 0.3 % (0-5); LYMPHOCYTES 11.5 % (15-50); MCH 29.9 pg (26.0-34.0); MCHC 34.6 g/dL (31.0-37.0); MCV 86.3 fL (80.0-100.0); MEAN PLATELET VOLUME 9.6 fL (7.4-10.4); MONOCYTES 5.8 % (2-11); NEUTROPHILS 81.8 % (40-80); PLATELET COUNT 284 10x3/uL (130-400); RBC 5.56 10x6/uL (4.20-6.10); RDW 14.8 % (11.5-14.5); WBC 13.7 10x3/uL (4.8-10.8)
[2018-06-02 10:28] LABS: ALBUMIN 3.1 g/dL (3.4-5.0); ANION GAP 17.4 mmol/L (8-16); BILIRUBIN - TOTAL 0.45 mg/dL (0.2-1.3); CALCIUM 8.3 mg/dL (8.5-10.1); CARBON DIOXIDE 23.2 mmol/L (21.0-32.0); CREATININE - SERUM 1.2 mg/dL (0.6-1.3); POTASSIUM - SERUM 3.6 mmol/L (3.5-5.1); PROTEIN - SERUM 7.7 g/dL (6.4-8.2)
--- NOTE | 2018-06-02 10:58 | NUR ---
CRITICAL LAB OF LACTIC ACID 2.4 [facility].
--- NOTE | 2018-06-02 11:07 | NUR ---
PT TO RADIOLOGY AT THIS TIME.
--- NOTE | 2018-06-02 11:25 | NUR ---
BACK FROM CT. PT UNABLE TO PROVIDE UA, WILL ATTEMPT AFTER FLUIDS
--- NOTE | 2018-06-02 12:19 | NUR ---
VOIDED APPROX 200ML, UA SENT TO LAB
[2018-06-02 12:41] LABS: APPEARANCE CLEAR (CLEAR); BILIRUBIN NEGATIVE (NEGATIVE); COLOR YELLOW (YELLOW); EPITHELIAL CELLS 0-5 /hpf (0-5); GLUCOSE NEGATIVE (NEGATIVE); KETONE NEGATIVE (NEGATIVE); NITRITE NEGATIVE (NEGATIVE); PROTEIN TRACE mg/dL (NEGATIVE); RED CELLS - URINE NONE SEEN /hpf (0-5); UROBILINOGEN NORMAL (NORMAL); WHITE CELLS - URINE 0-5 /hpf (0-5)
--- NOTE | 2018-06-02 13:24 | NUR ---
LOREN DESIR INFORMED OF PT'S FEVER. DR. PIMENTEL GIVES VO FOR 650 MG PO TYLENOL Q4H PRN FEVER. WILL CARRY OUT ORDER.
--- NOTE | 2018-06-02 13:29 | NUR ---
ROCHEPHIN COMPLETE, ZITHROMAX STARTED
--- NOTE | 2018-06-02 13:40 | NUR ---
REPORT GIVEN TO MAITE SPENCER ON M1. NS AND AZITHROMYCIN CONTINUED ON TRANSPORT.
--- NOTE | 2018-06-02 19:30 | NUR ---
RECEIVED REPORT, ASSUMED CARE, PT SLEEPING, NO S/S OF DISTRESS NOTED, BREATHING EVEN UNLABORED, FLU SWAB OBTAINED, AROUSES EASILY, DENIES NEEDS, WILL CONITNUE POC
--- NOTE | 2018-06-02 21:58 | NUR ---
RN NOTE: LAB CALLED WITH POSITIVE FLU B RESULTS. ORDER FOR ISOLATION PLACED AND SIGNAGE PLACED ON PT'S DOOR FOR DROPLET ISOLATION PRECAUTIONS.
[2018-06-03] VITALS: BP 110/51
--- NOTE | 2018-06-03 02:30 | NUR ---
UP FOR SHOWER
--- NOTE | 2018-06-03 02:36 | NUR ---
WIRED SWEATBAND CUTTER'S HAVE PT UP AND IN SHOWER. AGREE WITH ZONE MANAGER'S ASSESSMENT, CONTINUE PLAN OF CARE.
[2018-06-03 03:00] VITALS: BP 108/47
[2018-06-03 05:15] LABS: BASOPHILS 0.2 % (0-2); EOSINOPHILS 3.7 % (0-7); HEMATOCRIT 42.3 % (42.0-54.0); HEMOGLOBIN 14.1 g/dL (13.5-17.5); IMMATURE GRANULOCYTES 0.3 % (0-5); LYMPHOCYTES 21.3 % (15-50); MCH 29.1 pg (26.0-34.0); MCHC 33.3 g/dL (31.0-37.0); MCV 87.2 fL (80.0-100.0); MEAN PLATELET VOLUME 9.6 fL (7.4-10.4); NEUTROPHILS 67.5 % (40-80); RBC 4.85 10x6/uL (4.20-6.10); RDW 15.2 % (11.5-14.5)
[2018-06-03 05:32] LABS: PLATELET COUNT 220 10x3/uL (130-400); WBC 6.5 10x3/uL (4.8-10.8)
[2018-06-03 05:46] LABS: CALCIUM 7.6 mg/dL (8.5-10.1); CARBON DIOXIDE 19.7 mmol/L (21.0-32.0); CHLORIDE - SERUM 104 mmol/L (98-107); GLUCOSE 71 mg/dL (74-106); MAGNESIUM - SERUM 1.7 mg/dL (1.8-2.4); POTASSIUM - SERUM 3.5 mmol/L (3.5-5.1); SODIUM 136 mmol/L (136-145)
[2018-06-03 06:26] LABS: CALC OSMOLALITY 268 mosm/kg (275-300); CREATININE - SERUM 0.8 mg/dL (0.6-1.3); UREA NITROGEN 10 mg/dL (7-18); eGFR NON AFRICAN AMERICAN > 90 mL/min (90-120)
[2018-06-03 08:52] VITALS: BP 119/76
[2018-06-03 13:15] VITALS: BMI 39.0
[2018-06-03 13:40] VITALS: BP 120/69
[2018-06-03 16:00] VITALS: BP 133/80
[2018-06-03 19:32] VITALS: Ht 172.7 cm; Wt 116.6 kg
[2018-06-03 21:09] VITALS: BP 141/74
--- NOTE | 2018-06-03 21:20 | NUR ---
FRIEND/FAMILY MEMBER AT BEDSIDE. PT DENIES PAIN, BUT REQUESTS MEDICATION TO HELP HIM SLEEP. COUGH NOTED, PT STATES IT IS PRODUCTIVE, BUT CANNOT SPIT IT UP AND UNSURE OF COLOR OF SPUTUM/MUCOUS. EXPIRITORY WHEEZES NOTED TO LOWER LOBES BILATERALLY. REFUSES SCDs, DENIES FURTHER NEEDS AT THIS TIME.
[2018-06-04 00:01] VITALS: BP 154/80
--- NOTE | 2018-06-04 02:48 | NUR ---
EYES CLOSED RESPIRATIONS WITH EASE AND UNLABORED. SR UP X2 CALL LIGHT WITHIN REACH.
[2018-06-04 04:56] VITALS: BP 108/51
[2018-06-04 05:17] LABS: BASOPHILS 0.4 % (0-2); EOSINOPHILS 8.8 % (0-7); HEMATOCRIT 38.3 % (42.0-54.0); HEMOGLOBIN 12.8 g/dL (13.5-17.5); IMMATURE GRANULOCYTES 0.2 % (0-5); LYMPHOCYTES 41.7 % (15-50); MCH 28.5 pg (26.0-34.0); MCHC 33.4 g/dL (31.0-37.0); MCV 85.3 fL (80.0-100.0); MEAN PLATELET VOLUME 9.3 fL (7.4-10.4); MONOCYTES 8.3 % (2-11); NEUTROPHILS 40.6 % (40-80); PLATELET COUNT 236 10x3/uL (130-400); RBC 4.49 10x6/uL (4.20-6.10); RDW 14.8 % (11.5-14.5); WBC 5.1 10x3/uL (4.8-10.8)
[2018-06-04 05:45] LABS: ALKALINE PHOSPHATASE 59 U/L (46-116); BILIRUBIN - TOTAL 0.26 mg/dL (0.2-1.3); CALCIUM 7.5 mg/dL (8.5-10.1); CARBON DIOXIDE 21.2 mmol/L (21.0-32.0); CHLORIDE - SERUM 107 mmol/L (98-107); CREATININE - SERUM 0.8 mg/dL (0.6-1.3); GLUCOSE 92 mg/dL (74-106); SODIUM 139 mmol/L (136-145); eGFR NON AFRICAN AMERICAN > 90 mL/min (90-120)
[2018-06-04 05:54] LABS: ALBUMIN 2.1 g/dL (3.4-5.0); ALT (SGPT) 23 U/L (10-68); CALC OSMOLALITY 274 mosm/kg (275-300); PROTEIN - SERUM 5.5 g/dL (6.4-8.2); UREA NITROGEN 4 mg/dL (7-18)
[2018-06-04 08:00] VITALS: BP 147/76
[2018-06-04] MEDS ORDERED: FLORAJEN3 CAPS460 MG PO (11:36)
[2018-06-04] MEDS ORDERED: MULTI-DAY VITAM1 TAB PO (11:36)
[2018-06-04] MEDS ORDERED: OMNICEF300 MG PO (11:37)
[2018-06-04] MEDS ORDERED: FOLIC ACID1 MG PO (11:37)
[2018-06-04] MEDS ORDERED: ZITHROMAX500 MG PO (11:37)
[2018-06-04] MEDS ORDERED: VITAMIN B-1100 M1 PO (11:38)
[2018-06-04] MEDS ORDERED: Nicoderm [PBKC] TRANSDERM (11:38)
--- NOTE | 2018-06-04 12:20 | NUR ---
PT LEAVING AT THIS TIME VIA PLANT CYTOLOGIST IN STABLE CONDITION
--- NOTE | 2018-06-04 12:37 | NUR ---
PT PULLED OUT IV THIS MORNING, DC INSTUCTIONS GIVEN NOW PRESCPITON GIVEN PT VERABLIZES UNDERSTANDING, EDUCATED PT TO NOT SMOKE OR DRINK TAKING MEDICATIONS AND TO NOT SMOKE WITH PATCH ON, PT VERABLIZES UNDERSTANDING, PT IN STABLE CONDTION AWATING HIS RIDE AT THIS TIME, REPLACED K+ PER PROTOCOL
== END 2018-06-04 13:02 | disposition home or self-care (01) | DRG 178 ==
LOC: D.ER 09:45 → D.MS 12:52 → D.EDHOLD 12:52 → D.MS 13:31
PROVIDERS: Family Medicine; ADMIT Internal Medicine Nephrology
DX: J69.0 Pneumonitis due to inhalation of food and vomit (principal); K56.7 Ileus, unspecified; F17.203 Nicotine dependence unspecified, with withdrawal; L97.429 Non-pressure chronic ulcer of left heel and midfoot with unspecified severity; I25.10 Atherosclerotic heart disease of native coronary artery without angina pectoris; F10.10 Alcohol abuse, uncomplicated

== ENCOUNTER 2018-06-13 05:11 | Outpatient (CLI) | payer OTHER ==
[~2018-06-13] VITALS: Ht 172.7 cm; Wt 104.5 kg
--- NOTE | ~2018-06-13 | HEMODYNAMI ---
PATIENT:GOSIA AMES MEDICAL RECORD: [id number] : 64 LOCATION:[facility] ADMISSION DATE: 06/13/18 Generatedon:06/13/20189:25 Patient name: GOSIA AMES Patient #: [id number] SSN: : 1960 Date of study: 06/13/2018 Page: Of Hemodynamic Procedure Report Patient Data Patient Demographics Procedure consent was obtained First Name: GOSIA Gender: Male Last Name: KWAKU : 1960 [facility] Initial: SURAJ Age: 57 year(s) Patient #: [id number] Race: Unknown Additional ID: [id number] Contact details Address: [address] [place] [address] State: [place] City: [facility] Zip code: [address] Past Medical History Allergies: No known allergies Admission Admission Data Admission Date: 06/13/2018 Admission Time: 5:11 Procedure Procedure Types Cath Procedure Peripheral Cath Diagnostic Procedure Abd/Extremity Extremities AFRO Lower Ext Arterio Procedure Description Procedure Date Procedure Date: 06/13/2018 Procedure Start Time: 8:35 Procedure Staff Name Function Andrés Patten MD Performing Physician Erwin Linares RT Monitor Erwin Linares RT Scrub Jenae Berrios RN Nurse Procedure Data Cath Procedure Fluoroscopy Diagnostic fluoroscopy Total fluoroscopy Time: time: 2.12 min 2.12 min Diagnostic fluoroscopy Total fluoroscopy dose: 329 dose: 329 mGy mGy Contrast Material Contrast Material Type Amount (ml) Isovue 300 165 Isovue 300 110 Entry Location Entry Primary Successful Side Size Upsize Upsize Entry Closure Succes sful Closure Location (Fr) 1 (Fr) 2 (Fr) Remarks Device Remarks Femoral Right 5 Fr Exoseal artery Procedure Medications Medication Administration Route Dosage Heparin Flush Bag added to field 3 bags (1000units/500ml NS) Lidocaine 1% added to field 20 Versed I.V. 2 mg Fentanyl I.V. 100 mcg Versed I.V. 1 mg Fentanyl I.V. 50 mcg Fentanyl I.V. 50 mcg Versed I.V. 1 mg Hemodynamics Rest Heart Rate: 85 (bpm) Pressure Samples Time Site Value (mmHg) Purpose Heart Use Rate(bpm) 8:45 AO 145/70(98) Snapshot 81 8:45 AO 143/69(96) Snapshot 81 8:45 AO 143/69(96) Snapshot 81 8:45 AO 143/69(96) Snapshot 81 8:50 LT iliac 133/67(90) Snapshot 79 8:50 LT iliac 137/69(93) Snapshot 80 8:50 LT iliac 136/69(93) Snapshot 80 8:50 LT iliac 138/69(93) Snapshot 79 8:50 LT iliac 135/68(91) Snapshot 77 Snapshots Pre Cath Intra NCS Post Cath Vital Signs Time Heart Resp SPO2 etCO2 NIBP (mmHg) Rhythm Pain Status Sedation Rate (ipm) (%) (mmHg) Level (bpm) 7:58:58 82 46 99 0 130/83(106) NSR 0 (11) , No 10(A) pain 8:03:08 84 15 100 33.5 127/83(101) NSR 0 (11) , No 10(A) pain 8:07:16 83 13 100 30.5 141/86(120) NSR 0 (11) , No 10(A) pain 8:11:26 83 8 30.5 136/86(114) NSR 0 (11) , No 10(A) pain 8:15:38 88 20 27.6 134/84(112) NSR 0 (11) , No 10(A) pain 8:19:50 84 20 27.6 125/84(114) NSR 0 (11) , No 10(A) pain 8:24:00 86 21 20.9 130/81(101) NSR 0 (11) , No 9(A) pain 8:28:10 86 12 26.8 134/83(106) NSR 0 (11) , No 9(A) pain 8:32:15 91 25 99 11.2 140/109(123) NSR 2 (11) , 9(A) Uncomfortable 8:36:27 89 10 96 30.6 141/88(115) NSR 0 (11) , No 9(A) pain 8:40:35 82 14 91 26.8 140/84(116) NSR 0 (11) , No 9(A) pain 8:44:45 79 14 92 28.3 129/86(111) NSR 1 (11) , Very 9(A) mild 8:48:57 80 11 0 134/77(111) NSR 0 (11) , No 8(A) pain 8:53:07 78 10 0 124/74(106) NSR 0 (11) , No 8(A) pain 8:57:15 79 10 23.8 130/81(105) NSR 0 (11) , No 8(A) pain 9:01:21 75 10 30.5 120/73(103) NSR 0 (11) , No 8(A) pain 9:05:30 75 10 21.6 112/71(106) NSR 0 (11) , No 8(A) pain 9:09:38 77 12 0 122/73(107) NSR 0 (11) , No 8(A) pain 9:13:48 77 9 20.1 127/79(115) NSR 0 (11) , No 8(A) pain 9:18:00 79 9 16.4 118/71(105) NSR 0 (11) , No 8(A) pain 9:22:08 79 10 0 120/78(97) NSR 0 (11) , No 8(A) pain Medications Time Medication Route Dose Verified Delivered Reason Notes Effec tiveness by by 8:33:00 Heparin Flush added 3 Andrés Bowen used for Bag to bags Sandor Patten MD procedure (1000units/500ml field MERLOS NS) 8:33:11 Lidocaine 1% added 20ml Andrés Bowen for local to vial Sandor Patten MD anesthetic field MERLOS 8:35:44 Versed I.V. 2 mg Andrés Emanuel for Yash Patten RN sedation 8:35:54 Fentanyl I.V. 100 Andrés Emanuel for mcg Yash Patten RN sedation 8:46:17 Versed I.V. 1 mg Andrés Emanuel for Yash Patten RN sedation 8:46:28 Fentanyl I.V. 50 Andrés Emanuel for mcg Yash Patten RN sedation 9:01:01 Fentanyl I.V. 50 Andrés Emanuel for mcg Yash Patten RN sedation 9:01:11 Versed I.V. 1 mg Andrés Emanuel for Yash Patten RN sedation MD Procedure Log Time Note 7:35:17 Erwin Linares RT (R) (CV) sent for patient. Start room use. 7:35:27 Time tracking: Regular hours (M-F 7:00 - 5:00) 7:35:33 Plan of Care:Hemodynamics will remain stable., Cardiac rhythm will remain stable., Comfort level will be maintained., Respiratory function will remain adequate., Patient/ family verbilizes understanding of procedure., Procedure tolerated without complication., Recovers from procedure without complications.. 7:35:42 Patient received from Outpatients to IR Alert and oriented. Tansferred to table in Supine position. 7:35:45 Warm blankets applied, and andreea hugger turned on for patient comfort. 7:35:52 Correct patient and procedure confirmed by team. 7:36:02 Signed procedure consent form obtained from patient. 7:36:04 ECG and BP/O2 sat monitors applied to patient. 7:36:07 Full Disclosure recording started 7:36:10 7:36:11 7:36:14 H&P Date Dictated: 06/13/2018 H&P Addendum completed by physician on day of procedure. (MUST COMPLETE FOR ALL OUTPATIENTS). 7:36:17 Pre-procedure instructions explained to patient. 7:36:17 Pre-op teaching completed and patient verbalized understanding. 7:36:19 Family in waiting room. 7:36:21 Patient NPO since Midnight. 7:36:28 Use device set IR Diagnostic 7:36:29 ACIST Syringe (57450) opened to sterile field. 7:36:30 ACIST Hand Control (42309) opened to sterile field. 7:36:30 ACIST Manifold (63822) opened to sterile field. 7:36:30 Bag Decanter (2001S) opened to sterile field. 7:36:31 Sterile Angiographic Pack opened to sterile field. 7:36:33 Tegaderm 4 x 4 (1626W) opened to sterile field. 7:36:48 Patient allergic to No known allergies 7:36:53 Is the patient allergic to Iodine/contrast media? No. 7:36:55 Is patient on blood thinner?Yes 7:36:59 ACC The patient was administered the following blood thiners within the last 24 hours: ACCAspirin, ACCPlavix 7:37:01 Patient diabetic? No. 7:37:03 7:37:03 ----Pre-sedation anethsthesia assessment.---- 7:37:06 Previous problem with sedation/anesthesia? No ? 7:37:07 Snore? Yes 7:37:08 Sleep apnea? No 7:37:09 Deviated septum? No 7:37:10 Opens mouth fully? Yes 7:37:11 Sticks out tongue? Yes 7:37:13 Airway obstruction? No ? 7:37:18 Dentures? Yes uppper\ 7:37:24 Pre procedure: right dorsailis pedis pulse Doppler 7:37:29 Pre procedure: left dorsailis pedis pulse Doppler 7:37:32 Pre procedure: right posterior tibial pulse Doppler 7:37:35 Pre procedure: left posterior tibial pulse Doppler 7:37:41 Patient pain scale 0/10 ?. 7:37:46 IV patent on arrival in right forearm with 0.9% NaCl at [facility]. 7:37:48 Alarms reviewed by R. N. 7:37:49 Sharps counted by scrub and verified by R.N. 7:42:07 Bilateral groins area was prepped with chlora-prep and draped in sterile fashion 7:57:55 Vital chart was started 7:57:58 Baseline sample Acquired. 8:31:47 Physician arrived 8:31:47 --------ALL STOP TIME OUT------ 8:31:49 Final Timeout: patient, procedure, and site verified with staff and physician. All members of the team are in agreement. 8:31:51 Bilateral groins site verified by team. 8:31:59 Fire Safety Assessment: A--An alcohol-based skin anteseptic being used preoperatively., C--Open oxygen or nitrous oxide is being used. 8:32:04 Sedation plan: IV Moderate Sedation Medication:Versed, Fentanyl 8:33:00 Heparin Flush Bag (1000units/500ml NS) 3 bags added to field was administered by Andrés Patten MD; used for procedure; 8:33:11 Lidocaine 1% 20ml vial added to field was administered by Andrés Patten MD; for local anesthetic; 8:35:02 Procedure started. 8:35:07 Local anesthetic to left femerol artery with Lidocaine 1% by Andrés Patten MD.ADDITIONAL ACCESS 8:35:10 Access obtained with 4Fr micropunture. 8:35:14 Micropuncture VSI 4FR kit opened to sterile field. 8:35:14 SHEATH 5FR Hamlet (VVT232) opened to sterile field. 8:35:15 TUBING Contrast Injection High Pressure (BNN046D) opened to sterile field. 8:35:15 DOC .035 wire (H26329) opened to sterile field. 8:35:27 A 5 Fr sheath was inserted into the Right Femoral artery 8:35:44 Versed 2 mg I.V. was administered by Jenae Berrios RN; for sedation; 8:35:54 Fentanyl 100 mcg I.V. was administered by Jenae Berrios RN; for sedation; 8:37:45 Angiodynamics Omniflush 5Fr 65cm ([id number]) opened to sterile field. 8:44:34 Zero performed for pressure channel P1 8:46:13 Morillo 180 wire (U44854) opened to sterile field. 8:46:17 Versed 1 mg I.V. was administered by Jenae Berrios RN; for sedation; 8:46:28 Fentanyl 50 mcg I.V. was administered by Jenae Berrios RN; for sedation; 8:49:08 Zero performed for pressure channel P1 8:49:13 Zero performed for pressure channel P1 8:49:20 Zero performed for pressure channel P1 8:49:29 Zero performed for pressure channel P1 8:49:37 Zero performed for pressure channel P1 9:01:01 Fentanyl 50 mcg I.V. was administered by Jenae Berrios RN; for sedation; 9:01:11 Versed 1 mg I.V. was administered by Jenae Berrios RN; for sedation; 9:04:38 EXOSEAL 5Fr (EX500) opened to sterile field. 9:05:01 Sheath removed intact; hemostasis achieved with Exoseal to the Right Femoral artery. 9:05:09 Procedure ended.(Physican Out) 9:07:11 Fluoroscopy time 02.12 minutes. 9:07:17 Fluoroscopy dose: 329 mGy 9:07:17 Flurop Dose total: 329 9:07:19 Sharps counted by scrub and verified by R.N. 9:07:21 Insertion/operative site no bleeding no hematoma. 9:07:25 Post-op/insertion site Left Femoral artery dressed using a 4 x 4 and Tegaderm. 9:07:32 Post left femerol artery:stable 9:07:34 Post Procedure Pulses reassessed and unchanged 9:07:35 Post procedure instruction explained to patient.Patient verbalizes understanding. 9:07:35 Procedure and supply charges have been captured, reviewed, submitted and are correct. 9:21:26 Contrast amount:Isovue 300 165ml. 9:21:45 Report given to Outpatients. 9:23:53 Contrast amount:Isovue 300 110ml. 9:24:18 Patient transfered to Outpatients with Wheelchair. 9:25:09 Vital chart was stopped Device Usage Item Name Manufacture Quantity Catalog Hospital Part Current Minim al Lot# / Number Charge Number Stock Stock Serial# Code ACIST Syringe Acist Medical 1 81353 036823 391029 739200 20 (39106) Systems Inc ACIST Hand Acist Medical 1 79678 999420 602258 155082 5 Control Systems Inc (27174) ACIST Acist Medical 1 28586 458915 602606 589374 5 Manifold Systems Inc (13906) Bag Decanter Microtek 1 816672 38160 651034 5 (2002S) Medical Inc. Sterile Cardinal 1 [id number] 904726 935024 5 Angiographic Health Pack Tegaderm 4 x 3M 1 1626W 253966 155276 086064 5 4 (1626W) Micropuncture VSI VASCULAR 1 7266V 553843 142948 5 VSI 4FR kit SOLUTIONS SHEATH 5FR Terumo 1 OBO019 645589 857533 918925 5 Hamlet (XRO175) TUBING [facility] 1 [id number] 954948 409478 566247 5 Contrast Injection High Pressure (PYR530R) DOC .035 wire [facility] 1 K51701 782578 408914 5 (U31467) Angiodynamics Angiodynamics 1 52149130 503394 220065 562597 5 Omniflush 5Fr 65cm (00445074) Morillo 180 [facility] 1 B90464 176728 673951 6651846 5 7670585 wire (X68920) EXOSEAL 5Fr Cardinal 1 EX500 009619 954256 785834 10 [id number] (EX500) Health Signature Audit [place] Stage Time Signature Unsigned Intra-Procedure 06/13/2018 Erwin 9:25:04 AM Milagros RT (R) (CV) Signatures Monitor : Erwin Signature : Milagros RT Date : Time : [id number] [place] [address]
[~2018-06-13 05:11] MED LIST changes: +FLORAJEN3 CAPS460 MG PO; +MULTI-DAY VITAM1 TAB PO; +OMNICEF300 MG PO; +VITAMIN B-1100 M1 PO; +ZITHROMAX500 MG PO
[2018-06-13 05:35] LABS: BASOPHILS 0.1 % (0-2); EOSINOPHILS 0.3 % (0-7); HEMATOCRIT 43.3 % (42.0-54.0); HEMOGLOBIN 14.7 g/dL (13.5-17.5); IMMATURE GRANULOCYTES 0.2 % (0-5); LYMPHOCYTES 15.2 % (15-50); MCH 29.2 pg (26.0-34.0); MCHC 33.9 g/dL (31.0-37.0); MCV 85.9 fL (80.0-100.0); MONOCYTES 4.3 % (2-11); NEUTROPHILS 79.9 % (40-80); RBC 5.04 10x6/uL (4.20-6.10); RDW 14.7 % (11.5-14.5); WBC 12.5 10x3/uL (4.8-10.8)
[2018-06-13 05:36] LABS: PLATELET COUNT 489 10x3/uL (130-400)
[2018-06-13 05:39] LABS: CALC OSMOLALITY 277 mosm/kg (275-300); CALCIUM 8.8 mg/dL (8.5-10.1); CARBON DIOXIDE 26.3 mmol/L (21.0-32.0); CHLORIDE - SERUM 101 mmol/L (98-107); CREATININE - SERUM 0.9 mg/dL (0.6-1.3); GLUCOSE 112 mg/dL (74-106); POTASSIUM - SERUM 4.3 mmol/L (3.5-5.1); SODIUM 138 mmol/L (136-145); UREA NITROGEN 15 mg/dL (7-18); eGFR NON AFRICAN AMERICAN > 90 mL/min (90-120)
[2018-06-13 05:41] LABS: APTT 26.4 SECONDS (22.8-39.4); INR 1.04 (0.85-1.17); PROTIME 13.1 SECONDS (11.6-15.0)
[2018-06-13] MEDS ORDERED: PROTONIX40 MG PO (07:04)
[2018-06-13] MEDS ORDERED: MEDROL4 MG PO (07:08)
[2018-06-13 07:23] VITALS: BP 139/80; Ht 172.7 cm; Wt 104.5 kg
== END 2018-06-13 13:00 ==
LOC: D.SP 05:11 → D.RAD 08:00 → D.SP 13:00
PROVIDERS: General Practice
DX: I70.202 Unspecified atherosclerosis of native arteries of extremities, left leg (principal)

== ENCOUNTER 2019-05-09 19:05 | Inpatient (IN) | payer OTHER ==
[~2019-05-09] VITALS: Ht 172.7 cm; Wt 112.2 kg
[~2019-05-09 19:05] MED LIST changes: +PROTONIX40 MG PO
[2019-05-09 20:00] VITALS: BP 126/66
[2019-05-09 20:20] LABS: BASOPHILS 0.1 % (0-2); EOSINOPHILS 1.3 % (0-7); HEMATOCRIT 35.5 % (42.0-54.0); HEMOGLOBIN 12.1 g/dL (13.5-17.5); IMMATURE GRANULOCYTES 1.9 % (0-5); LYMPHOCYTES 4.1 % (15-50); MCH 29.7 pg (26.0-34.0); MCHC 34.1 g/dL (31.0-37.0); MONOCYTES 6.7 % (2-11); NEUTROPHILS 85.9 % (40-80); RBC 4.08 10x6/uL (4.20-6.10); RDW 14.2 % (11.5-14.5); WBC 19.3 10x3/uL (4.8-10.8)
[2019-05-09 20:31] LABS: PLATELET COUNT 280 10x3/uL (130-400)
[2019-05-09 20:32] LABS: ANION GAP 10.4 mmol/L (8-16); CALCIUM 7.9 mg/dL (8.5-10.1); CARBON DIOXIDE 27.3 mmol/L (21.0-32.0); CREATININE - SERUM 1.3 mg/dL (0.6-1.3); POTASSIUM - SERUM 3.7 mmol/L (3.5-5.1)
[2019-05-09 20:38] LABS: BILIRUBIN - TOTAL 0.74 mg/dL (0.2-1.3); PROTEIN - SERUM 5.7 g/dL (6.4-8.2)
--- NOTE | 2019-05-09 21:05 | NUR ---
PT TO RADIOLOGY
--- NOTE | 2019-05-09 21:25 | NUR ---
PT RETURNED FROM RADIOLOGY.
[2019-05-09 21:35] VITALS: BP 99/54
--- NOTE | 2019-05-09 21:55 | NUR ---
URINE SENT TO LAB
[2019-05-09 22:17] LABS: APPEARANCE CLEAR (CLEAR); BACTERIA MANY /hpf (NEGATIVE); BILIRUBIN NEGATIVE (NEGATIVE); COLOR YELLOW (YELLOW); GLUCOSE NEGATIVE (NEGATIVE); KETONE NEGATIVE (NEGATIVE); NITRITE POSITIVE (NEGATIVE); PROTEIN 1+ mg/dL (NEGATIVE); RED CELLS - URINE 0-5 /hpf (0-5); UROBILINOGEN NORMAL (NORMAL); WHITE CELLS - URINE 25-50 /hpf (NEGATIVE)
--- NOTE | 2019-05-09 23:50 | NUR ---
RECEIVED FROM ER PER CASA.AWAKE ALERT,NO COMPALITNS AT PRESENT. SL TO RIGHT AND LEFT AC INTACT WITHOUT REDNESS OR EDEMA NOTED.ORIENTED TO ROOM. CL IN REACH
[2019-05-10 00:33] VITALS: BP 92/42; BMI 35.0
[2019-05-10 07:50] VITALS: BP 116/61
[2019-05-10 10:58] LABS: BASOPHILS 0.1 % (0-2); EOSINOPHILS 1.7 % (0-7); HEMATOCRIT 36.6 % (42.0-54.0); HEMOGLOBIN 11.9 g/dL (13.5-17.5); IMMATURE GRANULOCYTES 0.7 % (0-5); LYMPHOCYTES 6.3 % (15-50); MCH 28.8 pg (26.0-34.0); MCHC 32.5 g/dL (31.0-37.0); MCV 88.6 fL (80.0-100.0); NEUTROPHILS 87.2 % (40-80); PLATELET COUNT 260 10x3/uL (130-400); RBC 4.13 10x6/uL (4.20-6.10); RDW 14.4 % (11.5-14.5); WBC 19.1 10x3/uL (4.8-10.8)
[2019-05-10 11:13] LABS: ALBUMIN 1.9 g/dL (3.4-5.0); ANION GAP 12.1 mmol/L (8-16); BILIRUBIN - TOTAL 0.82 mg/dL (0.2-1.3); CALCIUM 7.7 mg/dL (8.5-10.1); CREATININE - SERUM 1.4 mg/dL (0.6-1.3); POTASSIUM - SERUM 4.1 mmol/L (3.5-5.1); PROTEIN - SERUM 5.6 g/dL (6.4-8.2)
[2019-05-10 13:24] VITALS: BP 135/65
[2019-05-10 16:43] VITALS: BP 122/60
[2019-05-10 19:30] VITALS: BP 143/80
--- NOTE | 2019-05-11 01:13 | NUR ---
RESTING QUIELTY WITH NO COMPLAITNS VOICED. CL IN REACH
--- NOTE | 2019-05-11 02:12 | NUR ---
I have reviewed this patient and I concur with the Shift Assessment completed by the Licensed Practical Nurse today this shift.
[2019-05-11 05:11] VITALS: BP 148/76
[2019-05-11 06:23] LABS: ALBUMIN 1.7 g/dL (3.4-5.0); BILIRUBIN - TOTAL 0.37 mg/dL (0.2-1.3); CALCIUM 7.8 mg/dL (8.5-10.1); CARBON DIOXIDE 22.5 mmol/L (21.0-32.0); CREATININE - SERUM 1.4 mg/dL (0.6-1.3); POTASSIUM - SERUM 4.5 mmol/L (3.5-5.1); PROTEIN - SERUM 5.2 g/dL (6.4-8.2)
[2019-05-11 06:49] LABS: BASOPHILS 0.1 % (0-2); EOSINOPHILS 1.8 % (0-7); HEMATOCRIT 35.8 % (42.0-54.0); HEMOGLOBIN 11.5 g/dL (13.5-17.5); IMMATURE GRANULOCYTES 0.5 % (0-5); LYMPHOCYTES 8.4 % (15-50); MCHC 32.1 g/dL (31.0-37.0); MCV 90.2 fL (80.0-100.0); MEAN PLATELET VOLUME 9.8 fL (7.4-10.4); MONOCYTES 5.7 % (2-11); NEUTROPHILS 83.5 % (40-80); PLATELET COUNT 235 10x3/uL (130-400); RBC 3.97 10x6/uL (4.20-6.10); RDW 14.6 % (11.5-14.5); WBC 14.8 10x3/uL (4.8-10.8)
[2019-05-11 07:53] VITALS: BP 121/61
--- NOTE | 2019-05-11 08:52 | NUR ---
PT ALERT X 4. BREATH SOUNDS CLEAR BILAT. ABDOMEN DISTENDED AND FIRM. IV TO LEFT AC, PATENT, DRESSING CDI. IV TO RIGHT AC, SALINE LOCKED. PT REPORTING SLIGHT HEADACHE BUT NO OTHER PAIN AT THIS TIME. BED LOW, CALL LIGHT IN REACH. NO OTHER NEEDS AT THIS TIME.
[2019-05-11 12:16] VITALS: BP 124/73
[2019-05-11 17:04] VITALS: BP 133/74
[2019-05-11 19:30] VITALS: BP 162/72
--- NOTE | 2019-05-12 00:19 | NUR ---
EYES CLOSED RESP EVEN AND UNALBORED. NO DISTRESS NOTED. IV TO RIGHT AND LEFT AC WITHOUT REDNESS OR EDEMA NOTED.CL IN REACH
[2019-05-12 00:42] VITALS: BP 161/76
--- NOTE | 2019-05-12 03:00 | NUR ---
I have reviewed this patient and I concur with the Shift Assessment completed by the Licensed Practical Nurse today this shift.
[2019-05-12 05:40] VITALS: BP 166/81
[2019-05-12 06:12] LABS: WBC 21.2 10x3/uL (4.8-10.8)
[2019-05-12 06:13] LABS: HEMATOCRIT 38.5 % (42.0-54.0); HEMOGLOBIN 12.5 g/dL (13.5-17.5); MCH 28.7 pg (26.0-34.0); MCHC 32.5 g/dL (31.0-37.0); MCV 88.5 fL (80.0-100.0); MEAN PLATELET VOLUME 9.4 fL (7.4-10.4); PLATELET COUNT 290 10x3/uL (130-400); RBC 4.35 10x6/uL (4.20-6.10); RDW 14.4 % (11.5-14.5)
[2019-05-12 06:25] LABS: ALBUMIN 1.9 g/dL (3.4-5.0); BILIRUBIN - TOTAL 0.33 mg/dL (0.2-1.3); CALCIUM 8.4 mg/dL (8.5-10.1); CARBON DIOXIDE 25.4 mmol/L (21.0-32.0); CREATININE - SERUM 1.5 mg/dL (0.6-1.3)
[2019-05-12 06:27] LABS: ANION GAP 13.4 mmol/L (8-16); POTASSIUM - SERUM 3.8 mmol/L (3.5-5.1); PROTEIN - SERUM 6.9 g/dL (6.4-8.2)
[2019-05-12 07:57] LABS: EOSINOPHILS 7 % (0-7); LYMPHOCYTES 13 % (15-50); MONOCYTES 4 % (2-11); NEUTROPHILS 75 % (40-80); PLATELET ESTIMATE NORMAL
--- NOTE | 2019-05-12 08:26 | NUR ---
AWAKE AND ALERT. ORIENTED X3. HAS TEMP OF 102 AT THIS TIME. NOTIFIED CRISTIAN JOHNSTON APN OF SAME. WILL MONITOR. LUNGS ARE CLEAR BILATERALLY, NO COUGH NOTED. SKIN IS INTACT WTIHOUT REDNESS EXCEPT SMALL WOUND TO RIGHT ELBOW WHICH PATIENT STATED IS OLD. WILL MONITOR. IV TO LEFT AC AND SL RIGHT AC ARE PATENT WITHOUT REDNESS AT INSERTION SITE. DENIES NEEDS.
[2019-05-12 09:03] VITALS: BP 154/79
--- NOTE | 2019-05-12 09:30 | NUR ---
ATE ALL OF BREAKFAST HE WANTED. TOOK AM MEDS WITHOUT DIFFICULTY. DENIES NEEDS. AMBULATED IN HALLWAY PER SELF.
--- NOTE | 2019-05-12 12:30 | NUR ---
LUNCH SERVED IN ROOM. FEEDS SELF. DENIES NEEDS.
[2019-05-12 12:45] VITALS: BP 116/70
--- NOTE | 2019-05-12 16:04 | NUR ---
RESTING QUIETLY IN BED. DENIES NEEDS.
[2019-05-12 17:21] VITALS: BP 136/67
--- NOTE | 2019-05-12 18:46 | NUR ---
ATE MOST OF SUPPER. DENIES NEEDS. NO CHANGES NOTED.
[2019-05-12 19:30] VITALS: BP 148/61
[2019-05-13 00:30] VITALS: BP 151/67
[2019-05-13 05:10] LABS: BASOPHILS 0.2 % (0-2); EOSINOPHILS 2.7 % (0-7); HEMOGLOBIN 12.3 g/dL (13.5-17.5); IMMATURE GRANULOCYTES 0.6 % (0-5); LYMPHOCYTES 15.4 % (15-50); MCH 28.7 pg (26.0-34.0); MCHC 33.2 g/dL (31.0-37.0); MEAN PLATELET VOLUME 9.9 fL (7.4-10.4); MONOCYTES 9.7 % (2-11); NEUTROPHILS 71.4 % (40-80); PLATELET COUNT 312 10x3/uL (130-400); RBC 4.29 10x6/uL (4.20-6.10); RDW 14.4 % (11.5-14.5); WBC 16.9 10x3/uL (4.8-10.8)
[2019-05-13 05:27] LABS: MCV 86.2 fL (80.0-100.0)
[2019-05-13 05:29] LABS: ALBUMIN 1.7 g/dL (3.4-5.0); BILIRUBIN - TOTAL 0.29 mg/dL (0.2-1.3); CALCIUM 7.9 mg/dL (8.5-10.1); CARBON DIOXIDE 24.2 mmol/L (21.0-32.0); CREATININE - SERUM 1.5 mg/dL (0.6-1.3); PROTEIN - SERUM 6.4 g/dL (6.4-8.2)
[2019-05-13 05:30] VITALS: BP 120/49
[2019-05-13 05:39] LABS: ANION GAP 13.9 mmol/L (8-16); POTASSIUM - SERUM 3.1 mmol/L (3.5-5.1)
--- NOTE | 2019-05-13 07:05 | NUR ---
ALERT AND ORIENTED, RESTING IN BED WITH EYES OPEN. NO C/O PAIN. NO S/S OF ACUTE DISTRESS NOTED. WOUND TO RIGHT ELBOW, OPEN TO AIR. POSSIBLE I&D TODAY. NPO D/T PROCEDURE. POTASSIUM 3.1 THIS AM, FOLLOWING ELECTROLYTE PROTOCOL. IV TO RIGHT AC, SL AND LEFT AC, NS INFUSING @ 50ML/HR. SITES PATENT WITHOUT REDNESS OR SWELLING. DENIES ANY NEEDS AT THIS TIME. CALL LIGHT IN REACH. WILL CONTINUE TO MONITOR.
[2019-05-13 09:21] VITALS: BP 106/63
[2019-05-13 09:44] LABS: APPEARANCE CLEAR (CLEAR); BACTERIA FEW /hpf (NEGATIVE); BILIRUBIN NEGATIVE (NEGATIVE); COLOR YELLOW (YELLOW); EPITHELIAL CELLS OCC /hpf (0-5); GLUCOSE NEGATIVE (NEGATIVE); KETONE NEGATIVE (NEGATIVE); MUCUS <1+ /lpf (NONE SEEN); NITRITE NEGATIVE (NEGATIVE); PROTEIN NEGATIVE (NEGATIVE); RED CELLS - URINE NONE SEEN /hpf (0-5); SPECIFIC GRAVITY 1.015 (1.005-1.020); UROBILINOGEN NORMAL (NORMAL); WHITE CELLS - URINE 0-5 /hpf (NEGATIVE)
--- NOTE | 2019-05-13 10:05 | NUR ---
PATIENT TAKEN FOR SURGERY. CONSENTS SIGNED AND PATIENT PRE-OPED.
--- NOTE | 2019-05-13 12:30 | MORECARE ---
CASE MANAGEMENT DISCHARGE SUMMARY PATIENT: GOSIA AMES UNIT: [id number] ADM DATE: 05/09/19 AGE: 58 : 64 SEX: M ROOM/BED: D.2231 AUTHOR: BABITA LOCKHART PHYSICIAN: REFERRING PHYSICIAN: SHILPI DEUTSCH MD DATE OF SERVICE: 05/13/19 Discharge Plan Patient Name: GOSIA AMES Facility: [facility]:[place] : 1960 Planned Disposition: Home or Self Care Anticipated Discharge Date: Discharge Date: Expected LOS: Initial Reviewer: [email or web address] Initial Review Date: 05/10/2019 Generated: 05/13/19 1:29 pm DCPIA - Discharge Planning Initial Assessment Updated by [email or web address]: Magnolia Augustin on 05/13/19 12:27 pm * Is the patient Alert and Oriented? Yes * How many steps to enter\exit or inside your home? * PCP EMILIO * Pharmacy [facility] * Preadmission Environment Home Alone * ADLs Independent * Equipment None * List name and contact numbers for known caregivers / representatives who currently or will assist patient after discharge: KARAN AMES (DAUGHTER) [phone] * Verbal permission to speak to the caregivers and representatives has been obtained from the patient. N/A * Community resources currently utilized None * Additional services required to return to the preadmission environment? Yes * Can the patient safely return to the preadmission environment? Yes * Has this patient been hospitalized within the prior 30 days at any hospital? No Patient Name: GOSIA AMES Page [id number] at 1230 All edits/amendments must be made on the electronic document DICTATION DATE: 05/13/19 1229 KENO TERMINAL OPERATOR: DAVID 05/13/19 1229 RPT#: [id number] DC DATE: STATUS: ADM IN [facility] [address] [place] [address] END OF REPORT
--- NOTE | 2019-05-13 12:38 | MORECARE ---
CASE MANAGEMENT DISCHARGE SUMMARY PATIENT: GOSIA AMES UNIT: [id number] ADM DATE: 05/09/19 AGE: 58 : 64 SEX: M ROOM/BED: D.2231 AUTHOR: CHANTELLEDOC PHYSICIAN: REFERRING PHYSICIAN: SHILPI DEUTSCH MD DATE OF SERVICE: 05/13/19 Discharge Plan Patient Name: GOSIA AMES Facility: [facility]:[place] : 1960 Planned Disposition: Home or Self Care Anticipated Discharge Date: Discharge Date: Expected LOS: Initial Reviewer: [email or web address] Initial Review Date: 05/10/2019 Generated: 05/13/19 1:38 pm Comments DCP- Discharge Planning Updated by [email or web address]: Magnolia Augustin on 05/13/19 11:[address] Patient Name: GOSIA AMES Admission Status: ER Accout number: [id number] Admission Date: 05-09-2019 : 1960 Admission Diagnosis: Attending: THAIS Current LOS: 4 Anticipated DC Date: Planned Disposition: Home or Self Care Primary Insurance: Qumu Discharge Planning Comments: CM met with patient's daughter Leonela to complete initial dc planning assessment. CM educated patient on the CM role. Patient lives at home by himself where he is independent with his care. At discharge she stated that she will take her dad home to her home for a little bit while he heals. CM discussed availability of home health, rehab services, and medical equipment. She stated that he has iv abx and home health in the past for a knee infection, so they are familiar with that. CM will continue to follow and will assist as needed with dc plans/needs. Adult Literacy Teacher: Magnolia Augustin DCPIA - Discharge Planning Initial Assessment Updated by [email or web address]: Magnolia Augustin on 05/13/19 12:27 pm * Is the patient Alert and Oriented? Yes * How many steps to enter\exit or inside your home? * PCP EMILIO * Pharmacy [facility] * Preadmission Environment Home Alone * ADLs Independent * Equipment None * List name and contact numbers for known caregivers / representatives who currently or will assist patient after discharge: LEONELA AMES (DAUGHTER) [phone] * Verbal permission to speak to the caregivers and representatives has been obtained from the patient. N/A * Community resources currently utilized None * Additional services required to return to the preadmission environment? Yes * Can the patient safely return to the preadmission environment? Yes * Has this patient been hospitalized within the prior 30 days at any hospital? No Last DP export: 05/13/19 11:30 a Patient Name: GOSIA AMES Page [phone] at 1238 All edits/amendments must be made on the electronic document DICTATION DATE: 05/13/19 1238 LICENSE DISTRIBUTOR: DAVID 05/13/19 1238 RPT#: [id number] DC DATE: STATUS: ADM IN [facility] [address] [place] [address] END OF REPORT
[2019-05-13 12:58] VITALS: BP 112/62
--- NOTE | 2019-05-13 13:09 | NUR ---
RECEIVED PATIENT FROM OR. LOW GRADE TEMP 99.2. NO C/O PAIN. NO S/S OF ACUTE DISTRESS NOTED. DENIES ANY NEEDS AT THIS TIME. CALL LIGHT IN REACH. FAMILY AT BEDSIDE. WILL CONTINUE TO MONITOR.
--- NOTE | 2019-05-13 13:13 | NUR ---
BACK FROM OR. PT IS WITHOUT DISTRESS.CALL LIGHT IN REACH
[2019-05-13 17:18] VITALS: BP 102/56
--- NOTE | 2019-05-13 19:18 | NUR ---
ALERT AND ORIENTED, RESTING IN BED WITH EYES OPEN. NO C/O PAIN. NO S/S OF ACUTE DISTRESS NOTED. DENIES ANY NEEDS AT THIS TIME. CALL LIGHT IN REACH. WILL CONTINUE TO MONITOR.
[2019-05-13 20:00] VITALS: BP 121/80
--- NOTE | 2019-05-13 21:16 | NUR ---
A/O WITH NO SIGNS OF ACUTE DISTRESS. IV TO THE LT AC WITH NO REDNESS OR SWELLING. CLEAN/DRY DRESSING TO THE RT ELELBOW, PULSE PALP WITH ICE PACK IN PLACE. CONTACT ISOLATION IN PLACE. DENIES NO OTHER NEEDS AT THIS TIME. CONTINUE PLAN OF CARE.
[2019-05-14 00:39] VITALS: BP 121/74
[2019-05-14 04:00] VITALS: BP 130/76
[2019-05-14 05:22] LABS: BASOPHILS 0.1 % (0-2); EOSINOPHILS 0.1 % (0-7); HEMATOCRIT 33.5 % (42.0-54.0); IMMATURE GRANULOCYTES 1.2 % (0-5); LYMPHOCYTES 13.1 % (15-50); MCH 28.6 pg (26.0-34.0); MCHC 32.8 g/dL (31.0-37.0); MEAN PLATELET VOLUME 9.4 fL (7.4-10.4); MONOCYTES 8.1 % (2-11); NEUTROPHILS 77.4 % (40-80); PLATELET COUNT 364 10x3/uL (130-400); RBC 3.85 10x6/uL (4.20-6.10); RDW 14.8 % (11.5-14.5); WBC 15.6 10x3/uL (4.8-10.8)
[2019-05-14 06:11] LABS: ALBUMIN 1.6 g/dL (3.4-5.0); BILIRUBIN - TOTAL 0.25 mg/dL (0.2-1.3); CALCIUM 7.8 mg/dL (8.5-10.1); CARBON DIOXIDE 24.1 mmol/L (21.0-32.0); CREATININE - SERUM 1.2 mg/dL (0.6-1.3)
[2019-05-14 06:12] LABS: ANION GAP 11.8 mmol/L (8-16); POTASSIUM - SERUM 3.9 mmol/L (3.5-5.1)
[2019-05-14 08:13] VITALS: BP 130/68
[2019-05-14 12:22] VITALS: Ht 172.7 cm; Wt 112.2 kg
[2019-05-14 13:05] VITALS: BP 142/60
--- NOTE | 2019-05-14 14:53 | MORECARE ---
CASE MANAGEMENT DISCHARGE SUMMARY PATIENT: GOSIA AMES UNIT: [id number] ADM DATE: 05/09/19 AGE: 58 : 64 SEX: M ROOM/BED: D.2231 AUTHOR: CHANTELLE,DOC PHYSICIAN: REFERRING PHYSICIAN: SHILPI DEUTSCH MD DATE OF SERVICE: 05/14/19 Discharge Plan Patient Name: GOSIA AMES Facility: [facility]:[place] : 1960 Planned Disposition: Home or Self Care Anticipated Discharge Date: Discharge Date: Expected LOS: Initial Reviewer: [email or web address] Initial Review Date: 05/10/2019 Generated: 05/14/19 3:53 pm DCP- Discharge Planning Updated by [email or web address]: Magnolia Augustin on 05/13/19 11:[address] Patient Name: GOSIA AMES Admission Status: ER Accout number: [id number] Admission Date: 05-09-2019 : 1960 Admission Diagnosis: Attending: THAIS Current LOS: 4 Anticipated DC Date: Planned Disposition: Home or Self Care Primary Insurance: [email or web address] Discharge Planning Comments: CM met with patient's daughter Leonela to complete initial dc planning assessment. CM educated patient on the CM role. Patient lives at home by himself where he is independent with his care. At discharge she stated that she will take her dad home to her home for a little bit while he heals. CM discussed availability of home health, rehab services, and medical equipment. She stated that he has iv abx and home health in the past for a knee infection, so they are familiar with that. CM will continue to follow and will assist as needed with dc plans/needs. Physical Sciences Professor: Magnolia Augustin DCPIA - Discharge Planning Initial Assessment Updated by [email or web address]: Magnolia Augustin on 05/13/19 12:27 pm * Is the patient Alert and Oriented? Yes * How many steps to enter\exit or inside your home? * PCP EMILIO * Pharmacy [facility] * Preadmission Environment Home Alone * ADLs Independent * Equipment None * List name and contact numbers for known caregivers / representatives who currently or will assist patient after discharge: LEONELA AMES (DAUGHTER) [phone] * Verbal permission to speak to the caregivers and representatives has been obtained from the patient. N/A * Community resources currently utilized None * Additional services required to return to the preadmission environment? Yes * Can the patient safely return to the preadmission environment? Yes * Has this patient been hospitalized within the prior 30 days at any hospital? No External Providers [email or web address] Next Contact Date: Service Request Date: Service Type: Resolution: Reviewer: Comments: Last DP export: 05/13/19 11:38 a Patient Name: GOSIA AMES Page [phone] at 1453 All edits/amendments must be made on the electronic document DICTATION DATE: 05/14/191452 DOCUMENTATION COORDINATOR: DAVID 05/14/191452 RPT#: [id number] DC DATE: STATUS: ADM IN [facility] [address] [place] [address] END OF REPORT
--- NOTE | 2019-05-14 15:29 | MORECARE ---
CASE MANAGEMENT DISCHARGE SUMMARY PATIENT: GOSIA AMES UNIT: [id number] ADM DATE: 05/09/19 AGE: 58 : 64 SEX: M ROOM/BED: D.2231 AUTHOR: BABITA LOCKHART PHYSICIAN: REFERRING PHYSICIAN: SHILPI DEUTSCH MD DATE OF SERVICE: 05/14/19 Discharge Plan Patient Name: GOSIA AMES Facility: [facility]:[place] : 1960 Planned Disposition: Home or Self Care Anticipated Discharge Date: Discharge Date: Expected LOS: Initial Reviewer: [id number] Initial Review Date: 05/10/2019 Generated: 05/14/19 4:28 pm Comments DCP- Discharge Planning Updated by [email or web address]: Daija Calixto on 05/14/19 2:[address] [facility] CAN SEE THE PATIENT ON SUNDAY. THEY WILL NEED HOME HEALTH ORDERS FOR DRESSING CHANGES AND IF HE HAS IV ANTIBIOTICS. CM WILL CONTINUE TO FOLLOW AND ASSIST WITH DISCHARGE PLANNING/NEEDS. DCP- Discharge Planning Updated by [id number]: Magnolia Augustin on 05/13/19 11:[address] Patient Name: GOSIA AMES Admission Status: ER Accout number: [id number] Admission Date: 05-09-2019 : 1960 Admission Diagnosis: Attending: THAIS Current LOS: 4 Anticipated DC Date: Planned Disposition: Home or Self Care [facility] Discharge Planning Comments: CM met with patient's daughter Leonela to complete initial dc planning assessment. CM educated patient on the CM role. Patient lives at home by himself where he is independent with his care. At discharge she stated that she will take her dad home to her home for a little bit while he heals. CM discussed availability of home health, rehab services, and medical equipment. She stated that he has iv abx and home health in the past for a knee infection, so they are familiar with that. CM will continue to follow and will assist as needed with dc plans/needs. Curriculum Advisory Teacher: Magnolia Augustin DCPIA - Discharge Planning Initial Assessment Updated by [id number]: Magnolia Augustin on 05/13/19 12:27 pm * Is the patient Alert and Oriented? Yes * How many steps to enter\exit or inside your home? * PCP EMILIO * Pharmacy [facility] * Preadmission Environment Home Alone * ADLs Independent * Equipment None * List name and contact numbers for known caregivers / representatives who currently or will assist patient after discharge: LEONELA AMES (DAUGHTER) [phone] * Verbal permission to speak to the caregivers and representatives has been obtained from the patient. N/A * Community resources currently utilized None * Additional services required to return to the preadmission environment? Yes * Can the patient safely return to the preadmission environment? Yes * Has this patient been hospitalized within the prior 30 days at any hospital? No Coverage Notice Reviewer: [id number] Tiago Calixto Notice Issued Date-Time: 05/14/2019 15:02 Notice Type: Patient Choice Letter Notice Delivered To: Patient Relationship to Patient: Self Music Box Mechanic Name: Delivery Method: HAND - Hand Delivered Agustina Days: Prior Verbal Notification: Recipient Understood Notice: Yes Recipient Signature: Yes Med Rec Note Co-signed by Attending: Coverage Notice Comment: TYE FOR [facility] OR [place] FOR IV ABX Last DP export: 05/14/19 1:53 p Patient Name: GOSIA AMES Page 75457 at 1529 All edits/amendments must be made on the electronic document DICTATION DATE: 05/14/191527 PRESS WORKER HELPER: DAVID 05/14/191527 RPT#: [id number] DC DATE: STATUS: ADM IN [facility] [address] [place] [address] END OF REPORT
[2019-05-14 16:33] VITALS: BP 140/46
--- NOTE | 2019-05-14 19:30 | NUR ---
A/O WITH NO SIGNS OF DISTRESS. IV TO THE LT AC WITH NO REDNESS OR SWELLING NOTED. CLEAN/DRY DRESSING TO THE RT ELBOW, PULSE PALP. GAVE PRN ANXIETY MED PER PT REQUEST. DENIES NO OTHER NEEDS AT THIS TIME. CONTINUE PLAN OF CARE.
[2019-05-14 20:00] VITALS: BP 162/78
--- NOTE | 2019-05-14 23:16 | NUR ---
REQUESTED TO SKIP MIDNIGHT VITALS DUE TO PROBLEMS SLEEPING. WILL CONTINUE TO MONITOR.
[2019-05-15 04:00] VITALS: BP 166/85
[2019-05-15 05:47] LABS: BASOPHILS 0.2 % (0-2); EOSINOPHILS 1.9 % (0-7); HEMATOCRIT 33.6 % (42.0-54.0); HEMOGLOBIN 10.9 g/dL (13.5-17.5); LYMPHOCYTES 18.5 % (15-50); MCH 28.3 pg (26.0-34.0); MCHC 32.4 g/dL (31.0-37.0); MCV 87.3 fL (80.0-100.0); MEAN PLATELET VOLUME 9.4 fL (7.4-10.4); MONOCYTES 7.6 % (2-11); NEUTROPHILS 70.8 % (40-80); PLATELET COUNT 428 10x3/uL (130-400); RBC 3.85 10x6/uL (4.20-6.10); RDW 14.8 % (11.5-14.5); WBC 17.2 10x3/uL (4.8-10.8)
[2019-05-15 06:12] LABS: ALBUMIN 1.7 g/dL (3.4-5.0); ANION GAP 12.1 mmol/L (8-16); BILIRUBIN - TOTAL 0.24 mg/dL (0.2-1.3); CALCIUM 7.5 mg/dL (8.5-10.1); CARBON DIOXIDE 25.1 mmol/L (21.0-32.0); CREATININE - SERUM 1.3 mg/dL (0.6-1.3); PROTEIN - SERUM 5.9 g/dL (6.4-8.2)
[2019-05-15 06:19] LABS: POTASSIUM - SERUM 3.2 mmol/L (3.5-5.1)
--- NOTE | 2019-05-15 07:05 | NUR ---
ALERT AND ORIENTED, RESTING IN BED WITH EYES OPEN. NO C/O PAIN. NO S/S OF ACUTE DISTRESS NOTED. POD # 2 I&D RIGHT ELBOW, DRESSING C/D/I. IV TO LEFT AC, SL. SITE PATENT WITHOUT REDNESS OR SWELLING. ON ELECTROLYTE PROTOCOL, POTASSIUM 3.2 THIS AM, WILL FOLLOW PROTOCOL. DENIES ANY NEEDS AT THIS TIME. CALL LIGHT IN REACH. WILL CONTINUE TO MONITOR.
[2019-05-15 07:52] VITALS: BP 152/90
[2019-05-15 12:14] VITALS: BP 123/81
--- NOTE | 2019-05-15 14:10 | NUR ---
PT IS WITHOUT NEEDS.CALL LIGHT IN REACH. ISOLATION MAINTAINED
--- NOTE | 2019-05-15 14:50 | MORECARE ---
CASE MANAGEMENT DISCHARGE SUMMARY PATIENT: GOSIA AMES UNIT: [id number] ADM DATE: 05/09/19 AGE: 58 : 64 SEX: M ROOM/BED: D.2231 AUTHOR: CHANTELLEDOC PHYSICIAN: REFERRING PHYSICIAN: SHILPI DEUTSCH MD DATE OF SERVICE: 05/15/19 Discharge Plan Patient Name: GOSIA AMES Facility: [facility]:[place] : 1960 Planned Disposition: Home or Self Care Anticipated Discharge Date: Discharge Date: Expected LOS: Initial Reviewer: [email or web address] Initial Review Date: 05/10/2019 Generated: 05/15/19 3:49 pm Comments DCP- Discharge Planning Updated by [email or web address]: Daija Calixto on 05/14/19 2:[address] [facility] CAN SEE THE PATIENT ON SUNDAY. THEY WILL NEED HOME HEALTH ORDERS FOR DRESSING CHANGES AND IF HE HAS IV ANTIBIOTICS. CM WILL CONTINUE TO FOLLOW AND ASSIST WITH DISCHARGE PLANNING/NEEDS. DCP- Discharge Planning Updated by [id number]: Magnolia Augustin on 05/13/19 11:[address] Patient Name: GOSIA AMES Admission Status: ER Accout number: [id number] Admission Date: 05-09-2019 : 1960 Admission Diagnosis: Attending: THAIS Current LOS: 4 Anticipated DC Date: Planned Disposition: Home or Self Care [email or web address] Discharge Planning Comments: CM met with patient's daughter Leonela to complete initial dc planning assessment. CM educated patient on the CM role. Patient lives at home by himself where he is independent with his care. At discharge she stated that she will take her dad home to her home for a little bit while he heals. CM discussed availability of home health, rehab services, and medical equipment. She stated that he has iv abx and home health in the past for a knee infection, so they are familiar with that. CM will continue to follow and will assist as needed with dc plans/needs. Windlasser: Magnolia Augustin DCPIA - Discharge Planning Initial Assessment Updated by [id number]: Magnolia Augustin on 05/13/19 12:27 pm * Is the patient Alert and Oriented? Yes * How many steps to enter\exit or inside your home? * PCP EMILIO * Pharmacy [facility] * Preadmission Environment Home Alone * ADLs Independent * Equipment None * List name and contact numbers for known caregivers / representatives who currently or will assist patient after discharge: LEONELA AMES (DAUGHTER) [phone] * Verbal permission to speak to the caregivers and representatives has been obtained from the patient. N/A * Community resources currently utilized None * Additional services required to return to the preadmission environment? Yes * Can the patient safely return to the preadmission environment? Yes * Has this patient been hospitalized within the prior 30 days at any hospital? No External Providers External Provider: [facility] Next Contact Date: Service Request Date: Service Type: Resolution: Reviewer: Comments: Coverage Notice Reviewer: [email or web address] Tiago Calixto Notice Issued Date-Time: 05/14/2019 15:02 Notice Type: Patient Choice Letter Notice Delivered To: Patient Relationship to Patient: Self Integration Lead Name: Delivery Method: HAND - Hand Delivered Agustina Days: Prior Verbal Notification: Recipient Understood Notice: Yes Recipient Signature: Yes Med Rec Note Co-signed by Attending: Coverage Notice Comment: TYE FOR [facility] OR [place] FOR IV ABX Last DP export: 05/14/19 2:29 p Patient Name: GOSIA AMES Page [phone] at 1450 All edits/amendments must be made on the electronic document DICTATION DATE: 05/15/19 1449 SUPERVISOR RIDE ASSEMBLY: DAVID 05/15/19 1449 RPT#: [id number] DC DATE: STATUS: ADM IN [facility] [address] [place] [address] END OF REPORT
--- NOTE | 2019-05-15 14:57 | MORECARE ---
CASE MANAGEMENT DISCHARGE SUMMARY PATIENT: GOSIA AMES UNIT: [id number] ADM DATE: 05/09/19 AGE: 58 : 64 SEX: M ROOM/BED: D.2231 AUTHOR: BABITA LOCKHART PHYSICIAN: REFERRING PHYSICIAN: SHILPI DEUTSCH MD DATE OF SERVICE: 05/15/19 Discharge Plan Patient Name: GOSIA AMES Facility: [facility]:[place] : 1960 Planned Disposition: Home or Self Care Anticipated Discharge Date: Discharge Date: Expected LOS: Initial Reviewer: [email or web address] Initial Review Date: 05/10/2019 Generated: 05/15/19 3:57 pm Comments DCP- Discharge Planning Updated by [id number]: Daija Calixto on 05/14/19 2:[address] [facility] CAN SEE THE PATIENT ON SUNDAY. THEY WILL NEED HOME HEALTH ORDERS FOR DRESSING CHANGES AND IF HE HAS IV ANTIBIOTICS. CM WILL CONTINUE TO FOLLOW AND ASSIST WITH DISCHARGE PLANNING/NEEDS. DCP- Discharge Planning Updated by [id number]: Magnolia Augustin on 05/13/19 11:[address] Patient Name: GOSIA AMES Admission Status: ER Accout number: [id number] Admission Date: 05-09-2019 : 1960 Admission Diagnosis: Attending: THAIS Current LOS: 4 Anticipated DC Date: Planned Disposition: Home or Self Care [facility] Discharge Planning Comments: CM met with patient's daughter Leonela to complete initial dc planning assessment. CM educated patient on the CM role. Patient lives at home by himself where he is independent with his care. At discharge she stated that she will take her dad home to her home for a little bit while he heals. CM discussed availability of home health, rehab services, and medical equipment. She stated that he has iv abx and home health in the past for a knee infection, so they are familiar with that. CM will continue to follow and will assist as needed with dc plans/needs. Nib Inspector: Magnolia Augustin DCPIA - Discharge Planning Initial Assessment Updated by [email or web address]: Magnolia Augustin on 05/13/19 12:27 pm * Is the patient Alert and Oriented? Yes * How many steps to enter\exit or inside your home? * PCP EMILIO * Pharmacy [facility] * Preadmission Environment Home Alone * ADLs Independent * Equipment None * List name and contact numbers for known caregivers / representatives who currently or will assist patient after discharge: LEONELA AMES (DAUGHTER) [phone] * Verbal permission to speak to the caregivers and representatives has been obtained from the patient. N/A * Community resources currently utilized None * Additional services required to return to the preadmission environment? Yes * Can the patient safely return to the preadmission environment? Yes * Has this patient been hospitalized within the prior 30 days at any hospital? No External Providers External Provider: [facility] Next Contact Date: Service Request Date: Service Type: Resolution: Reviewer: Comments: Coverage Notice Reviewer: [id number] Tiago Calixto Notice Issued Date-Time: 05/14/2019 15:02 Notice Type: Patient Choice Letter Notice Delivered To: Patient Relationship to Patient: Self Community Coordinator Name: Delivery Method: HAND - Hand Delivered Agustina Days: Prior Verbal Notification: Recipient Understood Notice: Yes Recipient Signature: Yes Med Rec Note Co-signed by Attending: Coverage Notice Comment: TYE FOR [facility] [place] FOR IV ABX Last DP export: 05/15/19 1:50 p Patient Name: GOSIA AMES Page 33683 at 1457 All edits/amendments must be made on the electronic document DICTATION DATE: 05/15/191456 CHICKEN BUYER: DAVID 05/15/19 145 RPT#: [id number] DC DATE: STATUS: ADM IN [facility] [address] [place] [address] END OF REPORT
--- NOTE | 2019-05-15 15:07 | MORECARE ---
CASE MANAGEMENT DISCHARGE SUMMARY PATIENT: GOSIA AMES UNIT: [id number] ADM DATE: 05/09/19 AGE: 58 : 64 SEX: M ROOM/BED: D.2231 AUTHOR: CHANTELLE,DOC PHYSICIAN: REFERRING PHYSICIAN: SHILPI DEUTSCH MD DATE OF SERVICE: 05/15/19 Discharge Plan Patient Name: GOSIA AMES Facility: [facility]:[place] : 1960 Planned Disposition: Home or Self Care Anticipated Discharge Date: Discharge Date: Expected LOS: Initial Reviewer: [email or web address] Initial Review Date: 05/10/2019 Generated: 05/15/19 4:06 pm Comments DCP- Discharge Planning Updated by [email or web address]: Daija Calixto on 05/15/19 2:[address] I have faxed IV antibiotic order and dressing change orders to [facility]. I have faxed IV antibiotic orders to [place] and [facility]. I spoke with Asad and Leanne. Leanne with [facility] states they will probably not receive a call back on quote from insurance today. CM will continue to follow and assist with discharge planning/needs. DCP- Discharge Planning Updated by [id number]: Daija Calixto on 05/14/19 2:[address] [facility] CAN SEE THE PATIENT ON SUNDAY. THEY WILL NEED HOME HEALTH ORDERS FOR DRESSING CHANGES AND IF HE HAS IV ANTIBIOTICS. CM WILL CONTINUE TO FOLLOW AND ASSIST WITH DISCHARGE PLANNING/NEEDS. DCP- Discharge Planning Updated by [email or web address]: Magnolia Augustin on 05/13/19 11:[address] Patient Name: GOSIA AMES Admission Status: ER Accout number: [id number] Admission Date: 05-09-2019 : 1960 Admission Diagnosis: Attending: THAIS Current LOS: 4 Anticipated DC Date: Planned Disposition: Home or Self Care Primary Insurance: [employer] Discharge Planning Comments: CM met with patient's daughter Leonela to complete initial dc planning assessment. CM educated patient on the CM role. Patient lives at home by himself where he is independent with his care. At discharge she stated that she will take her dad home to her home for a little bit while he heals. CM discussed availability of home health, rehab services, and medical equipment. She stated that he has iv abx and home health in the past for a knee infection, so they are familiar with that. CM will continue to follow and will assist as needed with dc plans/needs. Sports Internship: Magnolia Augustin DCPIA - Discharge Planning Initial Assessment Updated by [id number]: Magnolia Augustin on 05/13/19 12:27 pm * Is the patient Alert and Oriented? Yes * How many steps to enter\exit or inside your home? * PCP EMILIO * Pharmacy [facility] * Preadmission Environment Home Alone * ADLs Independent * Equipment None * List name and contact numbers for known caregivers / representatives who currently or will assist patient after discharge: LEONELA AMES (DAUGHTER) [phone] * Verbal permission to speak to the caregivers and representatives has been obtained from the patient. N/A * Community resources currently utilized None * Additional services required to return to the preadmission environment? Yes * Can the patient safely return to the preadmission environment? Yes * Has this patient been hospitalized within the prior 30 days at any hospital? No Coverage Notice Reviewer: [id number] Tiago Calixto Notice Issued Date-Time: 05/14/2019 15:02 Notice Type: Patient Choice Letter Notice Delivered To: Patient Relationship to Patient: Self Whiskey Filterer Name: Delivery Method: HAND - Hand Delivered Agustina Days: Prior Verbal Notification: Recipient Understood Notice: Yes Recipient Signature: Yes Med Rec Note Co-signed by Attending: Coverage Notice Comment: TYE FOR [facility] [place] FOR IV ABX Last DP export: 05/15/19 1:57 p Patient Name: GOSIA AMES Page 55886 at 1507 All edits/amendments must be made on the electronic document DICTATION DATE: 05/15/19 1506 SWEET PICKLED FRUIT MAKER: DAVID 05/15/19 1506 RPT#: [id number] DC DATE: STATUS: ADM IN [facility] [address] [place] [address] END OF REPORT
[2019-05-15 16:33] VITALS: BP 131/72
--- NOTE | 2019-05-15 16:42 | MORECARE ---
CASE MANAGEMENT DISCHARGE SUMMARY PATIENT: GOSIA AMES UNIT: [id number] ADM DATE: 05/09/19 AGE: 58 : 64 SEX: M ROOM/BED: D.2231 AUTHOR: BABITA LOCKHART PHYSICIAN: REFERRING PHYSICIAN: SHILPI DEUTSCH MD DATE OF SERVICE: 05/15/19 Discharge Plan Patient Name: GOSIA AMES Facility: [facility]:[place] : 1960 Planned Disposition: Home or Self Care Anticipated Discharge Date: Discharge Date: Expected LOS: Initial Reviewer: [id number] Initial Review Date: 05/10/2019 Generated: 05/15/19 5:42 pm Comments DCP- Discharge Planning Updated by [id number]: Magnolia Augustin on 05/15/19 3:[address] [facility] CALLED AND STATED THAT THE GRAY WOULD BE 515.00 AND CAN MAKE A PAYMENT PLAN OVER 10 MONTHS HE IS AGREEABLE TO THIS TO [place] TODAY. ASAD WITH [facility] CALLED ROOM TO LET HIM KNOW PATIENT DID NOT WANT TO WAIT TO SEE WHAT THE [facility] OF [place] WOULD BE RAY WITH [facility] CALLED AND NOTIFED AND PATIENT WILL BE DISCHARGING TODAY. RUSS WITH [facility] HERE AND WILL DO A TEACH AT THE BEDSIDE & MEDICATION WILL BE DELIVERED TO HIS HOME TOMORROW. CM WILL CONTINUE TO FOLLOW AND ASSIST NEEDED DCP- Discharge Planning Updated by [id number]: Daija Calixto on 05/15/19 2:[address] I have faxed IV antibiotic order and dressing change orders to [facility]. I have faxed IV antibiotic orders to [facility] and [facility]. I spoke with Asad and Leanne. Leanne with [facility] states they will probably not receive a call back on quote from insurance today. CM will continue to follow and assist with discharge planning/needs. DCP- Discharge Planning Updated by [email or web address]: Daija Calixto on 05/14/19 2:[address] [facility] CAN SEE THE PATIENT ON SUNDAY. THEY WILL NEED HOME HEALTH ORDERS FOR DRESSING CHANGES AND IF HE HAS IV ANTIBIOTICS. CM WILL CONTINUE TO FOLLOW AND ASSIST WITH DISCHARGE PLANNING/NEEDS. DCP- Discharge Planning Updated by [id number]: Magnolia Augustin on 05/13/19 11:[address] Patient Name: GOSIA AMES Admission Status: ER Accout number: [id number] Admission Date: 05-09-2019 : 1960 Admission Diagnosis: Attending: THAIS Current LOS: 4 Anticipated DC Date: Planned Disposition: Home or Self Care Primary Insurance: [employer] Discharge Planning Comments: CM met with patient's daughter Leonela to complete initial dc planning assessment. CM educated patient on the CM role. Patient lives at home by himself where he is independent with his care. At discharge she stated that she will take her dad home to her home for a little bit while he heals. CM discussed availability of home health, rehab services, and medical equipment. She stated that he has iv abx and home health in the past for a knee infection, so they are familiar with that. CM will continue to follow and will assist as needed with dc plans/needs. Fishing Game Warden: Magnolia Augustin DCPIA - Discharge Planning Initial Assessment Updated by [email or web address]: Magnolia Augustin on 05/13/19 12:27 pm * Is the patient Alert and Oriented? Yes * How many steps to enter\exit or inside your home? * PCP EMILIO * Pharmacy [facility] * Preadmission Environment Home Alone * ADLs Independent * Equipment None * List name and contact numbers for known caregivers / representatives who currently or will assist patient after discharge: LEONELA AMES (DAUGHTER) [phone] * Verbal permission to speak to the caregivers and representatives has been obtained from the patient. N/A * Community resources currently utilized None * Additional services required to return to the preadmission environment? Yes * Can the patient safely return to the preadmission environment? Yes * Has this patient been hospitalized within the prior 30 days at any hospital? No Coverage Notice Reviewer: [id number] Tiago Calixto Notice Issued Date-Time: 05/14/2019 15:02 Notice Type: Patient Choice Letter Notice Delivered To: Patient Relationship to Patient: Self Payroll Accounting Specialist Name: Delivery Method: HAND - Hand Delivered Agustina Days: Prior Verbal Notification: Recipient Understood Notice: Yes Recipient Signature: Yes Med Rec Note Co-signed by Attending: Coverage Notice Comment: TYE FOR [facility] [place] FOR IV ABX Last DP export: 05/15/19 2:07 p Patient Name: GOSIA AMES Page 60584 at 1642 All edits/amendments must be made on the electronic document DICTATION DATE: 05/15/191641 MELT ROOM OPERATOR: DAVID 05/15/191641 RPT#: [id number] DC DATE: STATUS: ADM IN [facility] [address] [place] [address] END OF REPORT
--- NOTE | 2019-05-15 19:30 | NUR ---
A/O WITH NO SIGNS OF DISTRESS. PICC LINE TO THE LT UPPER ARM WITH DRESSING INTACT. CLEAN DRY DRESSING TO RT ELBOW, PULSE PALP. VOICES UPSET BECAUSE HE DID NOT GET TO GO HOME AND WANTS TO SLEEP. DENIES NO OTHER NEEDS AT THIS TIME. CONTINUE PLAN OF CARE.
[2019-05-15 20:00] VITALS: BP 156/90
--- NOTE | 2019-05-15 23:57 | NUR ---
REQUESTED TO SKIP MIDNIGHT VITALS TO GET REST. WILL CONTINUE TO MONITOR.
[2019-05-16 04:00] VITALS: BP 107/78
[2019-05-16 05:19] LABS: BASOPHILS 0.2 % (0-2); EOSINOPHILS 2.5 % (0-7); HEMATOCRIT 35.6 % (42.0-54.0); HEMOGLOBIN 11.6 g/dL (13.5-17.5); IMMATURE GRANULOCYTES 1.3 % (0-5); LYMPHOCYTES 17.7 % (15-50); MCH 28.6 pg (26.0-34.0); MCHC 32.6 g/dL (31.0-37.0); MCV 87.9 fL (80.0-100.0); MEAN PLATELET VOLUME 9.2 fL (7.4-10.4); MONOCYTES 4.4 % (2-11); NEUTROPHILS 73.9 % (40-80); PLATELET COUNT 468 10x3/uL (130-400); RBC 4.05 10x6/uL (4.20-6.10); RDW 14.8 % (11.5-14.5); WBC 14.6 10x3/uL (4.8-10.8)
[2019-05-16 05:29] LABS: ANION GAP 10.6 mmol/L (8-16); CALCIUM 7.3 mg/dL (8.5-10.1); CARBON DIOXIDE 26.3 mmol/L (21.0-32.0); CREATININE - SERUM 1.6 mg/dL (0.6-1.3)
[2019-05-16 05:48] LABS: POTASSIUM - SERUM 2.9 mmol/L (3.5-5.1)
[2019-05-16 09:00] VITALS: BP 103/59
[2019-05-16] MEDS ORDERED: HYDROCODON-ACE1 EAC7 PO (12:07)
[2019-05-16] MEDS ORDERED: HYDROCODON-ACE1 EA10 PO (12:09)
--- NOTE | 2019-05-16 12:45 | MORECARE ---
CASE MANAGEMENT DISCHARGE SUMMARY PATIENT: GOSIA AMES UNIT: [id number] ADM DATE: 05/09/19 AGE: 58 : 64 SEX: M ROOM/BED: D.2231 AUTHOR: BABITA LOCKHART PHYSICIAN: REFERRING PHYSICIAN: SHILPI DEUTSCH MD DATE OF SERVICE: 05/16/19 Discharge Plan Patient Name: GOSIA AMES Facility: [facility]:[place] : 1960 Planned Disposition: Home or Self Care Anticipated Discharge Date: Discharge Date: Expected LOS: Initial Reviewer: [email or web address] Initial Review Date: 05/10/2019 Generated: 05/16/19 1:45 pm Comments DCP- Discharge Planning Updated by [id number]: Daija Calixto on 05/16/19 11:[address] I have received new orders for antibiotics from Dr. Peñaloza and have faxed order to [facility] and spoke with Clovis with [facility] and Twyla with [facility], she will call him with the cost. DCP- Discharge Planning Updated by [email or web address]: Magnolia Augustin on 05/15/19 3:[address] [facility] CALLED AND STATED THAT THE GRAY WOULD BE 515.00 AND CAN MAKE A PAYMENT PLAN OVER 10 MONTHS HE IS AGREEABLE TO THIS TO IN TODAY. ASAD WITH [facility] CALLED ROOM TO LET HIM KNOW PATIENT DID NOT WANT TO WAIT TO SEE WHAT THE GRAY OF [place] WOULD BE [place] WITH [employer] [facility] CALLED AND NOTIFED AND PATIENT WILL BE DISCHARGING TODAY. RUSS WITH [facility] HERE AND WILL DO A TEACH AT THE BEDSIDE & MEDICATION WILL BE DELIVERED TO HIS HOME TOMORROW. CM WILL CONTINUE TO FOLLOW AND ASSIST NEEDED DCP- Discharge Planning Updated by [id number]: Daija Calixto on 05/15/19 2:[address] I have faxed IV antibiotic order and dressing change orders to [email or web address]. I have faxed IV antibiotic orders to [facility] and [facility]. I spoke with Asad and Leanne. Leanne with [facility] states they will probably not receive a call back on quote from insurance today. CM will continue to follow and assist with discharge planning/needs. DCP- Discharge Planning Updated by [id number]: Daija Calixto on 05/14/19 2:[address] [facility] CAN SEE THE PATIENT ON SUNDAY. THEY WILL NEED HOME HEALTH ORDERS FOR DRESSING CHANGES AND IF HE HAS IV ANTIBIOTICS. CM WILL CONTINUE TO FOLLOW AND ASSIST WITH DISCHARGE PLANNING/NEEDS. DCP- Discharge Planning Updated by [id number]: Magnolia Augustin on 05/13/19 11:[address] Patient Name: GOSIA AMES Admission Status: ER Accout number: [id number] Admission Date: 05-09-2019 : 1960 Admission Diagnosis: Attending: THAIS Current LOS: 4 Anticipated DC Date: Planned Disposition: Home or Self Care Primary Insurance: [employer] Discharge Planning Comments: CM met with patient's daughter Leonela to complete initial dc planning assessment. CM educated patient on the CM role. Patient lives at home by himself where he is independent with his care. At discharge she stated that she will take her dad home to her home for a little bit while he heals. CM discussed availability of home health, rehab services, and medical equipment. She stated that he has iv abx and home health in the past for a knee infection, so they are familiar with that. CM will continue to follow and will assist as needed with dc plans/needs. Canine Enforcement Officer: Magnolia Augustin DCPIA - Discharge Planning Initial Assessment Updated by [id number]: Magnolia Augustin on 05/13/19 12:27 pm * Is the patient Alert and Oriented? Yes * How many steps to enter\exit or inside your home? * PCP EMILIO * Pharmacy [facility] * Preadmission Environment Home Alone * ADLs Independent * Equipment None * List name and contact numbers for known caregivers / representatives who currently or will assist patient after discharge: LEONELA AMES (DAUGHTER) [phone] * Verbal permission to speak to the caregivers and representatives has been obtained from the patient. N/A * Community resources currently utilized None * Additional services required to return to the preadmission environment? Yes * Can the patient safely return to the preadmission environment? Yes * Has this patient been hospitalized within the prior 30 days at any hospital? No Coverage Notice Reviewer: [id number] - Daija Calixto Notice Issued Date-Time: 05/14/2019 15:02 Notice Type: Patient Choice Letter Notice Delivered To: Patient Relationship to Patient: Self Package Line Operator Name: Delivery Method: HAND - Hand Delivered Agustina Days: Prior Verbal Notification: Recipient Understood Notice: Yes Recipient Signature: Yes Med Rec Note Co-signed by Attending: Coverage Notice Comment: TYE FOR [facility] OR [facility] FOR IV ABX Last DP export: 05/15/19 3:42 p Patient Name: GOSIA AMES Page [id number] at 1245 All edits/amendments must be made on the electronic document DICTATION DATE: 05/16/19 1245 BOX SPRING MAKER: DAVID 05/16/19 1245 RPT#: [id number] DC DATE: STATUS: ADM IN [facility] [address] [place] [address] END OF REPORT
[2019-05-16] MEDS ORDERED: NAFCILLIN 2 GM/N2 G1 IV (12:55)
[2019-05-16] MEDS ORDERED: MIRALAX17 GM PO (12:55)
[2019-05-16 13:16] VITALS: BP 107/71
[2019-05-16 14:23] LABS: ANION GAP 11.8 mmol/L (8-16); CALCIUM 7.6 mg/dL (8.5-10.1); CARBON DIOXIDE 28.2 mmol/L (21.0-32.0); CREATININE - SERUM 1.5 mg/dL (0.6-1.3)
[2019-05-16 14:30] LABS: VANCOMYCIN - TROUGH 2.2 ug/mL (10.0-20.0)
--- NOTE | 2019-05-16 15:31 | NUR ---
I have reviewed this patient and I concur with the Shift Assessment completed by the Licensed Practical Nurse today this shift.
--- NOTE | 2019-05-16 16:51 | MORECARE ---
CASE MANAGEMENT DISCHARGE SUMMARY PATIENT: GOSIA AMES UNIT: [id number] ADM DATE: 05/09/19 AGE: 58 : 64 SEX: M ROOM/BED: D.2231 AUTHOR: CHANTELLE,DOC PHYSICIAN: REFERRING PHYSICIAN: SHILPI DEUTSCH MD DATE OF SERVICE: 05/16/19 Discharge Plan Patient Name: GOSIA AMES Facility: [facility]:[place] : 1960 Planned Disposition: Home or Self Care Anticipated Discharge Date: Discharge Date: Expected LOS: Initial Reviewer: [id number] Initial Review Date: 05/10/2019 Generated: 05/16/19 5:51 pm Comments DCP- Discharge Planning Updated by [email or web address]: Daija Calixto on 05/16/19 3:[address] Discharge on hold. EKG shows atrial flutter 2:1. Patient has agreed to Nafcillin infusions with ramirez of 3500 versus [address] Peñaloza informed of ramirez difference and at this time states patient needs the Nafcillin. I have told Twyla the patient is not going home today. CM to call [facility] on discharge at [phone] or notify Asad with [facility]. [facility] will be home health, I have notified Aria that he is not going home today. CM will continue to follow and assist with discharge planning/needs. DCP- Discharge Planning Updated by [id number]: Daija Calixto on 05/16/19 11:[address] I have received new orders for antibiotics from Dr. Peñaloza and have faxed order to [facility] and spoke with Clovis with [facility] and Twyla with [facility], she will call him with the cost. DCP- Discharge Planning Updated by [id number]: Magnolia Augustin on 05/15/19 3:[address] [facility] CALLED AND STATED THAT THE RAMIREZ WOULD BE 515.00 AND CAN MAKE A PAYMENT PLAN OVER 10 MONTHS HE IS AGREEABLE TO THIS TO [place] TODAY. ASAD WITH [facility] CALLED ROOM TO LET HIM KNOW PATIENT DID NOT WANT TO WAIT TO SEE WHAT THE RAMIREZ OF [place] WOULD BE [place] WITH [employer] [facility] CALLED AND NOTIFED AND PATIENT WILL BE DISCHARGING TODAY. RUSS WITH [facility] HERE AND WILL DO A TEACH AT THE BEDSIDE & MEDICATION WILL BE DELIVERED TO HIS HOME TOMORROW. CM WILL CONTINUE TO FOLLOW AND ASSIST NEEDED DCP- Discharge Planning Updated by [id number]: Daija Calixto on 05/15/19 2:[address] I have faxed IV antibiotic order and dressing change orders to [facility]. I have faxed IV antibiotic orders to [facility] and [facility]. I spoke with Asad and Leanne. Leanne with [facility] states they will probably not receive a call back on quote from insurance today. CM will continue to follow and assist with discharge planning/needs. DCP- Discharge Planning Updated by [id number]: Daija Calixto on 05/14/19 2:[address] [facility] CAN SEE THE PATIENT ON SUNDAY. THEY WILL NEED HOME HEALTH ORDERS FOR DRESSING CHANGES AND IF HE HAS IV ANTIBIOTICS. CM WILL CONTINUE TO FOLLOW AND ASSIST WITH DISCHARGE PLANNING/NEEDS. DCP- Discharge Planning Updated by [id number]: Magnolia Augustin on 05/13/19 11:[address] Patient Name: GOSIA AMES Admission Status: ER Accout number: [id number] Admission Date: 05-09-2019 : 1960 Admission Diagnosis: Attending: THAIS Current LOS: 4 Anticipated DC Date: Planned Disposition: Home or Self Care Primary Insurance: [employer] Discharge Planning Comments: CM met with patient's daughter Leonela to complete initial dc planning assessment. CM educated patient on the CM role. Patient lives at home by himself where he is independent with his care. At discharge she stated that she will take her dad home to her home for a little bit while he heals. CM discussed availability of home health, rehab services, and medical equipment. She stated that he has iv abx and home health in the past for a knee infection, so they are familiar with that. CM will continue to follow and will assist as needed with dc plans/needs. Film Reproducer: Magnolia Augustin DCPIA - Discharge Planning Initial Assessment Updated by [id number]: Magnolia Augustin on 05/13/19 12:27 pm * Is the patient Alert and Oriented? Yes * How many steps to enter\exit or inside your home? * PCP EMILIO * Pharmacy [facility] [address] * Preadmission Environment Home Alone * ADLs Independent * Equipment None * List name and contact numbers for known caregivers / representatives who currently or will assist patient after discharge: LEONELA AMES (DAUGHTER) [phone] * Verbal permission to speak to the caregivers and representatives has been obtained from the patient. N/A * Community resources currently utilized None * Additional services required to return to the preadmission environment? Yes * Can the patient safely return to the preadmission environment? Yes * Has this patient been hospitalized within the prior 30 days at any hospital? No Coverage Notice Reviewer: [id number] Tiago Calixto Notice Issued Date-Time: 05/14/2019 15:02 Notice Type: Patient Choice Letter Notice Delivered To: Patient Relationship to Patient: Self Sound Mixer Name: Delivery Method: HAND - Hand Delivered Agustina Days: Prior Verbal Notification: Recipient Understood Notice: Yes Recipient Signature: Yes Med Rec Note Co-signed by Attending: Coverage Notice Comment: TYE FOR [facility] OR [facility] FOR IV ABX Last DP export: 05/16/19 11:45 a Patient Name: GOSIA AMES Page [phone] at 1651 All edits/amendments must be made on the electronic document DICTATION DATE: 05/16/191650 FLAT SPRING ASSEMBLER: DAVID 05/16/191650 RPT#: [id number] DC DATE: STATUS: ADM IN [facility] [address] [place] [address] END OF REPORT
[2019-05-16 17:23] VITALS: BP 133/77
--- NOTE | 2019-05-16 18:00 | NUR ---
TELEMTRY CALLED STATED PATIENT RUNNING [address] BRICENO. DR. BRICENO STATED "WHAT DO YOU WANT TO DO. DID YOU READ MY NOTES?" THIS NURSE EXPLAINED TO HIM THAT [facility] REQUESTED HIM TO BE NOTIFIED. DR. BRICENO'S NOTES STATED THAT IF PATIENT WANTS TO GO HOME TO SEND HOME ON 60MG CARDIZEM. THIS NURSE NOTIFIED FACUNDO KHAN APN OF PATIENT HR AND RHYTHM. PATIENT VISITING WITH FAMILY, NO S/S OF ACUTE DISTRESS NOTED. AWAITING PHYSICIAN FURTHER INSTRUCTION. WILL CONTINUE TO MONITOR.
[2019-05-16 20:00] VITALS: BP 120/59
--- NOTE | 2019-05-16 21:19 | NUR ---
PATIENT UNHOOKED HIMSELF FROM IV POLE. WENT OUTSIDE AND I HAVE NOT SEEN HIM FOR OVER 15 MINUTES. MONITORS CALLED AND TOLD ME HIS HEART RATE IS IN THE 170'S. I WAS NOT AWARE THAT THE PATIENT LEFT. HE LEFT WITHOUT MY PERMISSION OR ASKING TO BE UNHOOKED FROM IV POLE.
--- NOTE | 2019-05-16 23:40 | NUR ---
PT RESTING IN BED WITH NIECE AT BEDSIDE. ST 165 PER TELEMETRY. BP 137/61 ADMINISTERED IV CARDIZEM 10MG SIVP AT THIS TIME, WELL BENADRYL 50MG SIVP. PT SLEEPY/EASILY ROUSABLE. WILL MONITOR.
--- NOTE | 2019-05-16 23:43 | NUR ---
TRANFER FROM MED SURG, PLACED ON A CARDIZEM DRIP @ 10ML/HR, BY BENNY SPENCER, ON TELEMTRY, BED IS LOW. SRX2, CALL LIGHT IN REACH, WILL CONTINUE PLAN OF CARE
[2019-05-17] VITALS: BP 133/75
--- NOTE | 2019-05-17 03:29 | NUR ---
PT HAS REMAINED IN SVT RATE 160'S. CALL TO DR BRICENO. NEW ORDERS RECIEVED TO CONTINUE THE CARDIZEM AT 10ML/HR AND START AMIODARONE WITH BOLUS OF 150MG OVER 30MINUTES THEN AN AMIODARONE DRIP AT 1MG/MIN. TO MONITOR BP/RATE CLOSELY AND IF BP/HR BEGIN TO LOWER, DECREASE CARDIZEM DRIP.
[2019-05-17 04:00] VITALS: BP 125/62
--- NOTE | 2019-05-17 04:08 | NUR ---
BP 118/51. ST 162 PER TELEMETRY. IV AMIODARONE 150MG BOLUS INITIATED AT THIS TIME.
--- NOTE | 2019-05-17 04:32 | NUR ---
BP 106/73 ST 145 CPOC. ALMOST COMPLETED THE BOLUS OF AMIODARONE. DRIP WILL BE INITIATED NEXT.
--- NOTE | 2019-05-17 04:43 | NUR ---
AMIODARONE BOLUS COMPLETED. BP 117/77. HR147 AMIODARONE PREMIX DRIP NOW UP AND INFUSING AT 33.3ML/HR (1MG/MIN)
[2019-05-17 04:48] LABS: HEMATOCRIT 39.6 % (42.0-54.0); HEMOGLOBIN 12.8 g/dL (13.5-17.5); MCH 28.6 pg (26.0-34.0); MCHC 32.3 g/dL (31.0-37.0); MCV 88.6 fL (80.0-100.0); MEAN PLATELET VOLUME 9.7 fL (7.4-10.4); PLATELET COUNT 504 10x3/uL (130-400); RBC 4.47 10x6/uL (4.20-6.10); RDW 15.3 % (11.5-14.5); WBC 13.2 10x3/uL (4.8-10.8)
[2019-05-17 05:00] LABS: APTT 30.7 SECONDS (22.8-39.4); INR 1.31 (0.85-1.17); PROTIME 16.2 SECONDS (11.6-15.0)
[2019-05-17 05:09] LABS: CALCIUM 7.9 mg/dL (8.5-10.1); CARBON DIOXIDE 24.2 mmol/L (21.0-32.0); CREATININE - SERUM 1.3 mg/dL (0.6-1.3); MAGNESIUM - SERUM 2.1 mg/dL (1.8-2.4); PHOSPHOROUS 5.1 mg/dL (2.5-4.9); POTASSIUM - SERUM 4.2 mmol/L (3.5-5.1)
[2019-05-17 05:25] LABS: EOSINOPHILS 6 % (0-7); LYMPHOCYTES 17 % (15-50); MONOCYTES 4 % (2-11); NEUTROPHILS 70 % (40-80); PLATELET ESTIMATE INCREASED
--- NOTE | 2019-05-17 07:10 | NUR ---
ASSESSMENT DONE. DENIES NEEDS. CM SHOWS SVT AT 147
--- NOTE | 2019-05-17 08:20 | NUR ---
DR BRICENO HERE CM SHOWS SVT 147, ORDER RECIVED TO GIVE CADRIZEM 20MG IV X 1 NOW
--- NOTE | 2019-05-17 08:50 | NUR ---
REMAINS IN SVT 147, ORDER RECIVED TO GIVE LOPRESSOR 5MG IV X ONE NOW, DONE B/P 74/ DR BRICENO HERE AND NOTIFYED, CARDIZEM STOPED, IV BOLUS GIVEN, B/P 88/44.
[2019-05-17 08:53] VITALS: BP 103/49
--- NOTE | 2019-05-17 09:15 | NUR ---
ORDERS RECIVED TO HERE A CARDIOVERISON IN ICU
--- NOTE | 2019-05-17 09:40 | NUR ---
TO ICU FOR CARDIOVERSION. REPORT GIVEN TO ICU NURSE.
[2019-05-17 09:45] VITALS: BP 91/66
--- NOTE | 2019-05-17 09:45 | NUR ---
PT ARRIVED TO ROOM 2303 VIA BED ACCOMPANIED BY STAFF. BEDSIDE REPORT RECEIVED. HEART RATE 147, RR 12, B/P 91/66, TEMP 98.5 ORAL. PT ON AMIODERONE DRIP AT 33.33 ML/HR. PT DENIES ANY DISCOMFORT. WILL CONT TO MONITOR.
--- NOTE | 2019-05-17 10:02 | NUR ---
ANESTHESIA AT BEDSIDE. WILL CONT TO MONITOR.
--- NOTE | 2019-05-17 10:08 | NUR ---
PT CONVERTED TO NSR ON OWN. HR 86. WILL CONT TO MONITOR.
[2019-05-17 10:57] LABS: T4 THYROXIN - FREE 1.89 ng/dL (0.76-1.46); THYROID STIMULATING HORMONE 0.93 uIU/mL (0.36-3.74)
--- NOTE | 2019-05-17 11:00 | NUR ---
RETURN FROM CM SHOWES SR 82
[2019-05-17 12:09] VITALS: BP 121/65
--- NOTE | 2019-05-17 12:11 | NUR ---
I have reviewed this patient and I concur with the Shift Assessment completed by the Licensed Practical Nurse today this shift.
[2019-05-17 16:52] VITALS: BP 112/42
--- NOTE | 2019-05-17 18:34 | NUR ---
WITHOUT CHANGES OR DISTRESS NOTED AT THIS TIME. DENIES NEEDS
--- NOTE | 2019-05-17 19:30 | NUR ---
RECEIVED REPORT, WILL ASSUME CARE OF PT, SR-90 ON TELEMTRY, PT IS SLEEPING, NO DISTRESS NOTICED AT THIS TIME, BED IS LOW, SRX2, CALL LIGHT IN REACH, WILL CONTINUE PLAN OF CARE
[2019-05-18 06:54] LABS: BASOPHILS 0.3 % (0-2); EOSINOPHILS 3.5 % (0-7); HEMATOCRIT 35.8 % (42.0-54.0); HEMOGLOBIN 11.2 g/dL (13.5-17.5); IMMATURE GRANULOCYTES 1.3 % (0-5); LYMPHOCYTES 19.8 % (15-50); MCHC 31.3 g/dL (31.0-37.0); MCV 89.5 fL (80.0-100.0); MEAN PLATELET VOLUME 8.8 fL (7.4-10.4); MONOCYTES 6.7 % (2-11); NEUTROPHILS 68.4 % (40-80); RDW 15.5 % (11.5-14.5); WBC 14.5 10x3/uL (4.8-10.8)
[2019-05-18 07:07] LABS: ANION GAP 10.8 mmol/L (8-16); CALCIUM 8.1 mg/dL (8.5-10.1); CARBON DIOXIDE 27.6 mmol/L (21.0-32.0); CREATININE - SERUM 1.4 mg/dL (0.6-1.3); MAGNESIUM - SERUM 2.2 mg/dL (1.8-2.4); PHOSPHOROUS 4.2 mg/dL (2.5-4.9); POTASSIUM - SERUM 3.4 mmol/L (3.5-5.1)
[2019-05-18 07:15] LABS: PLATELET COUNT 633 10x3/uL (130-400)
--- NOTE | 2019-05-18 07:46 | NUR ---
ASSESSMENT DONE. DENIES NEEDS
[2019-05-18 08:27] VITALS: BP 103/44
--- NOTE | 2019-05-18 09:24 | NUR ---
I have reviewed this patient and I concur with the Shift Assessment completed by the Licensed Practical Nurse today this shift.
[2019-05-18 16:58] VITALS: BP 108/63
--- NOTE | 2019-05-18 19:30 | NUR ---
REPORT RECIEVED AND INITIAL ROUNDS COMPLETED. PT ALERT/ORIENTED AND UP AND ABOUT IN HIS ROOM. LEFT ARM PICC CAPPED AND PATENT. STATES HE IS FEELING SO MUCH BETTER. SR 78 PER TELEMETRY. ON ISOLATION FOR R/O MRSA ON WOUND DRAINAGE TO RIGHT ELBOW WHICH HAS INTACT DRESSING IN PLACE. O2 @ 1L/NC. CPOC.
[2019-05-18 20:00] VITALS: BP 153/99
--- NOTE | 2019-05-19 00:14 | NUR ---
IV ABT UP AND INFUSING. PT RESTING SR 74 PER TELEMETRY.
[2019-05-19 00:18] VITALS: BP 131/64
[2019-05-19 04:39] VITALS: BP 101/55
--- NOTE | 2019-05-19 05:11 | NUR ---
IV ABT COMPLETD. PT RESTING. NO DISTRESS. NO CHANGE FROM INITIAL SHIFT ASSESSMENT. CPOC. CALL LIGHT IN REACH.
[2019-05-19 06:09] LABS: BASOPHILS 0.3 % (0-2); EOSINOPHILS 3.6 % (0-7); HEMATOCRIT 35.7 % (42.0-54.0); HEMOGLOBIN 11.4 g/dL (13.5-17.5); IMMATURE GRANULOCYTES 1.2 % (0-5); LYMPHOCYTES 19.1 % (15-50); MCH 28.8 pg (26.0-34.0); MCHC 31.9 g/dL (31.0-37.0); MCV 90.2 fL (80.0-100.0); MEAN PLATELET VOLUME 8.9 fL (7.4-10.4); MONOCYTES 6.7 % (2-11); NEUTROPHILS 69.1 % (40-80); PLATELET COUNT 655 10x3/uL (130-400); RBC 3.96 10x6/uL (4.20-6.10); RDW 15.5 % (11.5-14.5); WBC 13.5 10x3/uL (4.8-10.8)
[2019-05-19 06:39] LABS: ANION GAP 13.1 mmol/L (8-16); CARBON DIOXIDE 25.6 mmol/L (21.0-32.0); CREATININE - SERUM 1.4 mg/dL (0.6-1.3); MAGNESIUM - SERUM 2.1 mg/dL (1.8-2.4); PHOSPHOROUS 4.2 mg/dL (2.5-4.9)
[2019-05-19 06:41] LABS: POTASSIUM - SERUM 4.7 mmol/L (3.5-5.1)
--- NOTE | 2019-05-19 07:37 | NUR ---
AWAKE AND ALERT. ON CONTACT ISOLATION. TELEMERTY SHOWS SR. LEFT ELBO DRSG CLEAN AND DRY. LEFT PICC LINE SL. UP AB LUISA. SR UP TIMES ONE WITH CALL LIGHT IN REACH
--- NOTE | 2019-05-19 08:35 | OP ---
PATIENT NAME: GOSIA AMES MEDICAL RECORD: [id number] :[birth year] LOCATION:D.M2 D.2122 ADMISSION DATE:05/09/19 SURGEON: ANGIE GALVAN MD DATE OF OPERATION: 05/12/2019 PREOPERATIVE DIAGNOSES: Osteomyelitis of the right olecranon with cellulitis. POSTOPERATIVE DIAGNOSES: Osteomyelitis of the right olecranon with cellulitis. PROCEDURE: Excisional debridement to include skin, subcutaneous tissue, portions of fat, fascia, muscle, and bone. SURGEON: Angie Galvan MD ACCOUNTING MACHINE SERVICER: BELINDA Anderson INTRAOPERATIVE COMPLICATIONS: None. SUMMARY OF PATHOLOGIC FINDINGS: The patient had approximately 2 x 2 cm of osteomyelitis that required bony curettage. Please note that both standard cultures were sent along with DNA testing for bacterial identification along with a permanent pathology of the bone. Please note, the wound measurements were approximately 5 cm x 3 cm x 1 cm after debridement. OPERATIVE SUMMARY IN DETAIL: After obtaining the appropriate preoperative orthopedic surgery consents as well as anesthetic consultation, evaluation, and clearance, the patient was brought to the operating room and placed on the operating table in supine position. After general laryngeal mask airway was administered, tourniquet was placed on the proximal aspect of the right upper extremity. Right upper extremity was then prepped and draped in routine sterile fashion. After the appropriate timeout was taken on by all without the tourniquet being up, the incision was made over the tip of the olecranon at the area of purulence and indeed the bony prominence at the end of the olecranon was very soft consistent with MRI findings of osteomyelitis. Combination of rongeur, scalpel as well as curettage were utilized to debride the bone, which included almost the entire tip of the olecranon as well as excise affected periosteum, soft tissue and skin. After copious irrigation and substantial time taken to debride the bone of all the osteomyelitis, the wound was packed open with half inch iodoform gauze. Sterile dressings were applied. The patient was awakened and taken to recovery room in stable condition. All final needle and sponge counts were correct. TRANSINT:[id number] Voice Confirmation ID: [id number] DOCUMENT ID: [id number] ANGIE GALVAN MD at 0835 CC: [id number] DICTATION DATE: 05/16/19 1103 SUPERVISOR FURNACE ROOM: 05/16/19 1521 ADM IN [facility] [address] [place] [id number]
[2019-05-19 08:43] VITALS: BP 104/63
[2019-05-19 14:09] LABS: OVA + PARASITE EXAM Final report (())
[2019-05-19] MEDS ORDERED: LOPRESSOR25 MG PO (14:24)
--- NOTE | 2019-05-19 14:25 | NUR ---
I have reviewed this patient and I concur with the Shift Assessment complete by the Licensed Practical Nurse today this shift.
--- NOTE | 2019-05-19 15:13 | MORECARE ---
CASE MANAGEMENT DISCHARGE SUMMARY PATIENT: GOSIA AMES UNIT: [id number] ADM DATE: 05/09/19 AGE: 58 : 64 SEX: M ROOM/BED: D.6398 AUTHOR: CHANTELLE,DOC PHYSICIAN: REFERRING PHYSICIAN: SHILPI DEUTSCH MD DATE OF SERVICE: 05/19/19 Discharge Plan Patient Name: GOSIA AMES Facility: [facility]:[place] : 1960 Planned Disposition: Home or Self Care Anticipated Discharge Date: 05/19/19 Discharge Date: Expected LOS: 10 Initial Reviewer: [id number] Initial Review Date: 05/10/2019 Generated: 05/19/19 4:13 pm DCP- Discharge Planning Updated by [email or web address]: Daija Calixto on 05/16/19 3:[address] Discharge on hold. EKG shows atrial flutter 2:1. Patient has agreed to Nafcillin infusions with ramirez of 3500 [address] Peñaloza informed of ramirez difference and at this time states patient needs the Nafcillin. I have told Twyla the patient is not going home today. CM to call [facility] on discharge at [phone] or notify Asad with [facility]. [facility] will be [facility], I have notified Aria that he is not going home today. CM will continue to follow and assist with discharge planning/needs. DCP- Discharge Planning Updated by [id number]: Daija Calixto on 05/16/19 11:[address] I have received new orders for antibiotics from Dr. Peñaloza and have faxed order to [facility] and spoke with Clovis with [employer] [facility] and Twyla with [facility], she will call him with the cost. DCP- Discharge Planning Updated by [email or web address]: Magnolia Augustin on 05/15/19 3:[address] [facility] CALLED AND STATED THAT THE RAMIREZ WOULD BE 515.00 AND CAN MAKE A PAYMENT PLAN OVER 10 MONTHS HE IS AGREEABLE TO THIS TO CT TODAY. ASAD WITH [facility] CALLED ROOM TO LET HIM KNOW PATIENT DID NOT WANT TO WAIT TO SEE WHAT THE RAMIREZ OF [place] WOULD BE [place] WITH [facility] CALLED AND NOTIFED AND PATIENT WILL BE DISCHARGING TODAY. RUSS WITH [facility] HERE AND WILL DO A TEACH AT THE BEDSIDE & MEDICATION WILL BE DELIVERED TO HIS HOME TOMORROW. CM WILL CONTINUE TO FOLLOW AND ASSIST NEEDED DCP- Discharge Planning Updated by [id number]: Daija Durga on 05/15/19 2:[address] I have faxed IV antibiotic order and dressing change orders to [facility]. I have faxed IV antibiotic orders to [facility] and [facility]. I spoke with Asad and Leanne. Leanne with [facility] states they will probably not receive a call back on quote from insurance today. CM will continue to follow and assist with discharge planning/needs. DCP- Discharge Planning Updated by [id number]: Daija Durga on 05/14/19 2:[address] [facility] CAN SEE THE PATIENT ON SUNDAY. THEY WILL NEED HOME HEALTH ORDERS FOR DRESSING CHANGES AND IF HE HAS IV ANTIBIOTICS. CM WILL CONTINUE TO FOLLOW AND ASSIST WITH DISCHARGE PLANNING/NEEDS. DCP- Discharge Planning Updated by [id number]: Magnolia Augustin on 05/13/19 11:[address] Patient Name: GOSIA AMES Admission Status: ER Accout number: [id number] Admission Date: 05-09-2019 : 1960 Admission Diagnosis: Attending: THAIS Current LOS: 4 Anticipated DC Date: Planned Disposition: Home or Self Care Primary Insurance: [employer] Discharge Planning Comments: CM met with patient's daughter Leonela to complete initial dc planning assessment. CM educated patient on the CM role. Patient lives at home by himself where he is independent with his care. At discharge she stated that she will take her dad home to her home for a little bit while he heals. CM discussed availability of home health, rehab services, and medical equipment. She stated that he has iv abx and home health in the past for a knee infection, so they are familiar with that. CM will continue to follow and will assist as needed with dc plans/needs. Product Development Worker: Magnolai Augustin DCPIA - Discharge Planning Initial Assessment Updated by [email or web address]: Magnolia Augustin on 05/13/19 12:27 pm * Is the patient Alert and Oriented? Yes * How many steps to enter\exit or inside your home? * PCP EMILIO * Pharmacy [facility] * Preadmission Environment Home Alone * ADLs Independent * Equipment None * List name and contact numbers for known caregivers / representatives who currently or will assist patient after discharge: LEONELA AMES (DAUGHTER) [phone] * Verbal permission to speak to the caregivers and representatives has been obtained from the patient. N/A * Community resources currently utilized None * Additional services required to return to the preadmission environment? Yes * Can the patient safely return to the preadmission environment? Yes * Has this patient been hospitalized within the prior 30 days at any hospital? No Coverage Notice Reviewer: [email or web address] Tiago Calixto Notice Issued Date-Time: 05/14/2019 15:02 Notice Type: Patient Choice Letter Notice Delivered To: Patient Relationship to Patient: Self Polygraph Examiner Name: Delivery Method: HAND - Hand Delivered Agustina Days: Prior Verbal Notification: Recipient Understood Notice: Yes Recipient Signature: Yes Med Rec Note Co-signed by Attending: Coverage Notice Comment: TYE FOR [facility] FOR IV ABX Reviewer: [email or web address] Tiago Weiss Notice Issued Date-Time: 05/19/2019 15:00 Notice Type: IM Discharge Notice Notice Delivered To: Patient Relationship to Patient: Polygraph Examiner Name: Delivery Method: HAND - Hand Delivered Agustina Days: Prior Verbal Notification: Recipient Understood Notice: Yes Recipient Signature: Yes Med Rec Note Co-signed by Attending: Coverage Notice Comment: Last DP export: 05/16/19 3:51 p Patient Name: GOSIA AMES Page 01914 at 1513 All edits/amendments must be made on the electronic document DICTATION DATE: 05/19/191512 POWER REACTOR SUPERVISOR: DAVID 05/19/191512 RPT#: [id number] DC DATE: STATUS: ADM IN [facility] [address] [place] [address] END OF REPORT
--- NOTE | 2019-05-19 15:20 | MORECARE ---
CASE MANAGEMENT DISCHARGE SUMMARY PATIENT: GOSIA AMES UNIT: [id number] ADM DATE: 05/09/19 AGE: 58 : 64 SEX: M ROOM/BED: D.5923 AUTHOR: CHANTELLE,DOC PHYSICIAN: REFERRING PHYSICIAN: SHILPI DEUTSCH MD DATE OF SERVICE: 05/19/19 Discharge Plan Patient Name: GOSIA AMES Facility: [facility]:[place] : 1960 Planned Disposition: Home or Self Care Anticipated Discharge Date: 05/19/19 Discharge Date: Expected LOS: 10 Initial Reviewer: [email or web address] Initial Review Date: 05/10/2019 Generated: 05/19/19 4:20 pm DCP- Discharge Planning Updated by [id number]: Daija Calixto on 05/16/19 3:[address] Discharge on hold. EKG shows atrial flutter 2:1. Patient has agreed to Nafcillin infusions with ramirez of 3500 [address] Peñaloza informed of ramirez difference and at this time states patient needs the Nafcillin. I have told Twyla the patient is not going home today. CM to call [facility] on discharge at [phone] or notify Asad with [facility]. [facility] will be [facility], I have notified Aria that he is not going home today. CM will continue to follow and assist with discharge planning/needs. DCP- Discharge Planning Updated by [id number]: Daija Calixto on 05/16/19 11:[address] I have received new orders for antibiotics from Dr. Peñaloza and have faxed order to [facility] and spoke with Clovis with [employer] [facility] and Twyla with [facility], she will call him with the cost. DCP- Discharge Planning Updated by [id number]: Magnolia Augustin on 05/15/19 3:[address] [facility] CALLED AND STATED THAT THE RAMIREZ WOULD BE 515.00 AND CAN MAKE A PAYMENT PLAN OVER 10 MONTHS HE IS AGREEABLE TO THIS TO [place] TODAY. ASAD WITH [facility] CALLED ROOM TO LET HIM KNOW PATIENT DID NOT WANT TO WAIT TO SEE WHAT THE RAMIREZ OF [place] WOULD BE [place] WITH [facility] CALLED AND NOTIFED AND PATIENT WILL BE DISCHARGING TODAY. RUSS WITH [facility] HERE AND WILL DO A TEACH AT THE BEDSIDE & MEDICATION WILL BE DELIVERED TO HIS HOME TOMORROW. CM WILL CONTINUE TO FOLLOW AND ASSIST NEEDED DCP- Discharge Planning Updated by [email or web address]: Daija Durga on 05/15/19 2:[address] I have faxed IV antibiotic order and dressing change orders to [facility]. I have faxed IV antibiotic orders to [facility] and [facility]. I spoke with Asad and Leanne. Leanne with [facility] states they will probably not receive a call back on quote from insurance today. CM will continue to follow and assist with discharge planning/needs. DCP- Discharge Planning Updated by [id number]: Daija Durga on 05/14/19 2:[address] [facility] CAN SEE THE PATIENT ON SUNDAY. THEY WILL NEED HOME HEALTH ORDERS FOR DRESSING CHANGES AND IF HE HAS IV ANTIBIOTICS. CM WILL CONTINUE TO FOLLOW AND ASSIST WITH DISCHARGE PLANNING/NEEDS. DCP- Discharge Planning Updated by [id number]: Magnolia Augustin on 05/13/19 11:[address] Patient Name: GOSIA AMES Admission Status: ER Accout number: [id number] Admission Date: 05-09-2019 : 1960 Admission Diagnosis: Attending: THAIS Current LOS: 4 Anticipated DC Date: Planned Disposition: Home or Self Care Primary Insurance: [facility] Discharge Planning Comments: CM met with patient's daughter Leonela to complete initial dc planning assessment. CM educated patient on the CM role. Patient lives at home by himself where he is independent with his care. At discharge she stated that she will take her dad home to her home for a little bit while he heals. CM discussed availability of home health, rehab services, and medical equipment. She stated that he has iv abx and home health in the past for a knee infection, so they are familiar with that. CM will continue to follow and will assist as needed with dc plans/needs. Machine Hoop Maker: Magnolia Augustin DCPIA - Discharge Planning Initial Assessment Updated by [id number]: Magnolia Augustin on 05/13/19 12:27 pm * Is the patient Alert and Oriented? Yes * How many steps to enter\exit or inside your home? * PCP EMILIO * Pharmacy [facility] * Preadmission Environment Home Alone * ADLs Independent * Equipment None * List name and contact numbers for known caregivers / representatives who currently or will assist patient after discharge: LEONELA AMES (DAUGHTER) [phone] * Verbal permission to speak to the caregivers and representatives has been obtained from the patient. N/A * Community resources currently utilized None * Additional services required to return to the preadmission environment? Yes * Can the patient safely return to the preadmission environment? Yes * Has this patient been hospitalized within the prior 30 days at any hospital? No External Providers External Provider: [facility] Next Contact Date: Service Request Date: Service Type: Resolution: Reviewer: Comments: Coverage Notice Reviewer: [id number] Tiago Calixto Notice Issued Date-Time: 05/14/2019 15:02 Notice Type: Patient Choice Letter Notice Delivered To: Patient Relationship to Patient: Self Rand Cementer Name: Delivery Method: HAND - Hand Delivered Agustina Days: Prior Verbal Notification: Recipient Understood Notice: Yes Recipient Signature: Yes Med Rec Note Co-signed by Attending: Coverage Notice Comment: TYE FOR [facility] OR [employer] [facility] FOR IV ABX Reviewer: [id number] - Ar Weiss Notice Issued Date-Time: 05/19/2019 15:00 Notice Type: IM Discharge Notice Notice Delivered To: Patient Relationship to Patient: Rand Cementer Name: Delivery Method: HAND - Hand Delivered Agustina Days: Prior Verbal Notification: Recipient Understood Notice: Yes Recipient Signature: Yes Med Rec Note Co-signed by Attending: Coverage Notice Comment: Last DP export: 05/19/19 2:13 p Patient Name: GOSIA AMES Page 42786 at 1520 All edits/amendments must be made on the electronic document DICTATION DATE: 05/19/19 1520 RIDING DOUBLE: DAVID 05/19/19 1520 RPT#: [id number] DC DATE: STATUS: ADM IN [facility] [address] [place] [address] END OF REPORT
--- NOTE | 2019-05-19 15:28 | MORECARE ---
CASE MANAGEMENT DISCHARGE SUMMARY PATIENT: GOSIA AMES UNIT: [id number] ADM DATE: 05/09/19 AGE: 58 : 64 SEX: M ROOM/BED: D.1952 AUTHOR: CHANTELLE,DOC PHYSICIAN: REFERRING PHYSICIAN: SHILPI DEUTSCH MD DATE OF SERVICE: 05/19/19 Discharge Plan Patient Name: GOSIA AMES Facility: [facility]:[place] : 1960 Planned Disposition: Home with Infusion Therapy Services Anticipated Discharge Date: 05/19/19 Discharge Date: Expected LOS: 10 Initial Reviewer: [email or web address] Initial Review Date: 05/10/2019 Generated: 05/19/19 4:27 pm DCP- Discharge Planning Updated by [id number]: Daija Calixto on 05/16/19 3:[address] Discharge on hold. EKG shows atrial flutter 2:1. Patient has agreed to Nafcillin infusions with ramirez of 3500 [address] Peñaloza informed of ramirez difference and at this time states patient needs the Nafcillin. I have told Twyla the patient is not going home today. CM to call [facility] on discharge at [phone] or notify Asad with [facility]. [facility] will be [facility], I have notified Aria that he is not going home today. CM will continue to follow and assist with discharge planning/needs. DCP- Discharge Planning Updated by [email or web address]: Daija Calixto on 05/16/19 11:[address] I have received new orders for antibiotics from Dr. Peñaloza and have faxed order to [facility] and spoke with Clovis with [facility] and Twyla with [facility], she will call him with the cost. DCP- Discharge Planning Updated by [id number]: Magnolia Augustin on 05/15/19 3:[address] [facility] CALLED AND STATED THAT THE RAMIREZ WOULD BE 515.00 AND CAN MAKE A PAYMENT PLAN OVER 10 MONTHS HE IS AGREEABLE TO THIS TO [place] TODAY. ASAD WITH [facility] CALLED ROOM TO LET HIM KNOW PATIENT DID NOT WANT TO WAIT TO SEE WHAT THE RAMIREZ OF [place] WOULD BE [place] WITH [facility] CALLED AND NOTIFED AND PATIENT WILL BE DISCHARGING TODAY. RUSS WITH [facility] HERE AND WILL DO A TEACH AT THE BEDSIDE & MEDICATION WILL BE DELIVERED TO HIS HOME TOMORROW. CM WILL CONTINUE TO FOLLOW AND ASSIST NEEDED DCP- Discharge Planning Updated by [id number]: Daija Durga on 05/15/19 2:[address] I have faxed IV antibiotic order and dressing change orders to [facility]. I have faxed IV antibiotic orders to [facility] and [facility]. I spoke with Asad and Leanne. Leanne with [facility] states they will probably not receive a call back on quote from insurance today. CM will continue to follow and assist with discharge planning/needs. DCP- Discharge Planning Updated by [id number]: Daija Durga on 05/14/19 2:[address] [facility] CAN SEE THE PATIENT ON SUNDAY. THEY WILL NEED HOME HEALTH ORDERS FOR DRESSING CHANGES AND IF HE HAS IV ANTIBIOTICS. CM WILL CONTINUE TO FOLLOW AND ASSIST WITH DISCHARGE PLANNING/NEEDS. DCP- Discharge Planning Updated by [email or web address]: Magnolia Augustin on 05/13/19 11:[address] Patient Name: GOSIA AMES Admission Status: ER Accout number: [id number] Admission Date: 05-09-2019 : 1960 Admission Diagnosis: Attending: THAIS Current LOS: 4 Anticipated DC Date: Planned Disposition: Home or Self Care Primary Insurance[facility] Discharge Planning Comments: CM met with patient's daughter Leonela to complete initial dc planning assessment. CM educated patient on the CM role. Patient lives at home by himself where he is independent with his care. At discharge she stated that she will take her dad home to her home for a little bit while he heals. CM discussed availability of home health, rehab services, and medical equipment. She stated that he has iv abx and home health in the past for a knee infection, so they are familiar with that. CM will continue to follow and will assist as needed with dc plans/needs. Licensed Nuclear Operator: Magnolia Augustin DCPIA - Discharge Planning Initial Assessment Updated by [id number]: Magnolia Augustin on 05/13/19 12:27 pm * Is the patient Alert and Oriented? Yes * How many steps to enter\exit or inside your home? * PCP EMILIO * Pharmacy [facility] * Preadmission Environment Home Alone * ADLs Independent * Equipment None * List name and contact numbers for known caregivers / representatives who currently or will assist patient after discharge: LEONELA AMES (DAUGHTER) [phone] * Verbal permission to speak to the caregivers and representatives has been obtained from the patient. N/A * Community resources currently utilized None * Additional services required to return to the preadmission environment? Yes * Can the patient safely return to the preadmission environment? Yes * Has this patient been hospitalized within the prior 30 days at any hospital? No Coverage Notice Reviewer: [id number] Tiago Calixto Notice Issued Date-Time: 05/14/2019 15:02 Notice Type: Patient Choice Letter Notice Delivered To: Patient Relationship to Patient: Self Aircraft Stress Analyst Name: Delivery Method: HAND - Hand Delivered Agustina Days: Prior Verbal Notification: Recipient Understood Notice: Yes Recipient Signature: Yes Med Rec Note Co-signed by Attending: Coverage Notice Comment: TYE FOR [facility] OR [place] FOR IV ABX Reviewer: [id number] Tiago Weiss Notice Issued Date-Time: 05/19/2019 15:00 Notice Type: IM Discharge Notice Notice Delivered To: Patient Relationship to Patient: Aircraft Stress Analyst Name: Delivery Method: HAND - Hand Delivered Agustina Days: Prior Verbal Notification: Recipient Understood Notice: Yes Recipient Signature: Yes Med Rec Note Co-signed by Attending: Coverage Notice Comment: Last DP export: 05/19/19 2:20 p Patient Name: GOSIA AMES Page 64043 at 1528 All edits/amendments must be made on the electronic document DICTATION DATE: 05/19/191526 HOBBER: DAVID 05/19/19 152 RPT#: [id number] DC DATE: STATUS: ADM IN [facility] [address] [place] [address] END OF REPORT
--- NOTE | 2019-05-19 15:36 | MORECARE ---
CASE MANAGEMENT DISCHARGE SUMMARY PATIENT: GOSIA AMES UNIT: [id number] ADM DATE: 05/09/19 AGE: 58 : 64 SEX: M ROOM/BED: D.9958 AUTHOR: CHANTELLE,DOC PHYSICIAN: REFERRING PHYSICIAN: SHILPI DEUTSCH MD DATE OF SERVICE: 05/19/19 Discharge Plan Patient Name: GOSIA AMES Facility: [facility]:[place] : 1960 Planned Disposition: Home with Infusion Therapy Services Anticipated Discharge Date: 05/19/19 Discharge Date: Expected LOS: 10 Initial Reviewer: [id number] Initial Review Date: 05/10/2019 Generated: 05/19/19 4:36 pm Comments DCP- Discharge Planning Updated by [id number]: Ar Weiss on 05/19/19 2:[address] Patient Name: GOSIA AMES Encounter No: [id number] : 1960 Primary Insurance: [employer] Anticipated DC Date: 05-19-2019 Planned Disposition: Home with Infusion Therapy Services External Planned Provider: [email or web address]; [facility] DCP follow-up note: CM RECEIVED DISCHARGE ORDER, SPOKE TO PT IN ROOM WHO REPORTS HE IS GOING HOME TO HIS DAUGHTERS HOME AT [address] [place] [address]. PT'S DAUGHTER IS AN RN WHO WILL ASSIST WITH INFUSION. PT REPORTS ALL IS SET UP AND HIS RIDE HIS HERE. IMPORTANT MESSAGE FROM MEDICARE PROVIDED AND EXPLAINED. CM CALLED [email or web address], SPOKE TO FLORIN WHO VERIFIED PT'S MEDICATION WILL BE DELIVERED TO HOSPITAL THIS AFTERNOON AND PT WILL BE PLACED ON 24 HOUR CONTINUOUS INFUSION BAG TO GO HOME. CM CALLED [facility], , SPOKE TO CRISTINA WHO VERIFIED HOME HEALTH FOR TOMORROW. CM FAXED DISCHARGE INFORMATION TO [facility] AND [email or web address]. CM NOTIFIED PT AND SCANNING TECH NURSE. Ar Weiss, CASE MANAGEMENT DCP- Discharge Planning Updated by [id number]: Daija Calixto on 05/16/19 3:[address] Discharge on hold. EKG shows atrial flutter 2:1. Patient has agreed to Nafcillin infusions with ramirez of 3500 [address] Peñaloza informed of ramirez difference and at this time states patient needs the Nafcillin. I have told Twyla the patient is not going home today. CM to call [facility] Dup[facility] on discharge at [phone] or notify Asad with [facility]. [facility] will be home health, I have notified Cristina that he is not going home today. CM will continue to follow and assist with discharge planning/needs. DCP- Discharge Planning Updated by [id number]: Daija Calixto on 05/16/19 11:[address] I have received new orders for antibiotics from Dr. Peñaloza and have faxed order to [facility] and spoke with Clovis with [facility] and Twyla with [facility], she will call him with the cost. DCP- Discharge Planning Updated by [id number]: Magnolia Augustin on 05/15/19 3:[address] [facility] CALLED AND STATED THAT THE RAMIREZ WOULD BE 515.00 AND CAN MAKE A PAYMENT PLAN OVER 10 MONTHS HE IS AGREEABLE TO THIS TO [place] TODAY. ASAD WITH [facility] CALLED ROOM TO LET HIM KNOW PATIENT DID NOT WANT TO WAIT TO SEE WHAT THE RAMIREZ OF [place] WOULD BE [facility] WITH [facility] CALLED AND NOTIFED AND PATIENT WILL BE DISCHARGING TODAY. RUSS WITH [facility] HERE AND WILL DO A TEACH AT THE BEDSIDE & MEDICATION WILL BE DELIVERED TO HIS HOME TOMORROW. CM WILL CONTINUE TO FOLLOW AND ASSIST NEEDED DCP- Discharge Planning Updated by [id number]: Daija Calixto on 05/15/19 2:[address] I have faxed IV antibiotic order and dressing change orders to [facility]. I have faxed IV antibiotic orders to [facility] and [facility]. I spoke with Asad and Leanne. Leanne with [facility] states they will probably not receive a call back on quote from insurance today. CM will continue to follow and assist with discharge planning/needs. DCP- Discharge Planning Updated by [id number]: Daija Calixto on 05/14/19 2:[address] [facility] CAN SEE THE PATIENT ON SUNDAY. THEY WILL NEED HOME HEALTH ORDERS FOR DRESSING CHANGES AND IF HE HAS IV ANTIBIOTICS. CM WILL CONTINUE TO FOLLOW AND ASSIST WITH DISCHARGE PLANNING/NEEDS. DCP- Discharge Planning Updated by [id number]: Magnolia Augustin on 05/13/19 11:[address] Patient Name: GOSIA AMES Admission Status: ER Accout number: [id number] Admission Date: 05-09-2019 : 1960 Admission Diagnosis: Attending: THAIS Current LOS: 4 Anticipated DC Date: Planned Disposition: Home or Self Care [facility] Discharge Planning Comments: CM met with patient's daughter Leonela to complete initial dc planning assessment. CM educated patient on the CM role. Patient lives at home by himself where he is independent with his care. At discharge she stated that she will take her dad home to her home for a little bit while he heals. CM discussed availability of home health, rehab services, and medical equipment. She stated that he has iv abx and home health in the past for a knee infection, so they are familiar with that. CM will continue to follow and will assist as needed with dc plans/needs. Golf Course Architect: Magnolia Augustin DCPIA - Discharge Planning Initial Assessment Updated by [id number]: Magnolia Augustin on 05/13/19 12:27 pm * Is the patient Alert and Oriented? Yes * How many steps to enter\exit or inside your home? * PCP EMILIO * Pharmacy [facility] * Preadmission Environment Home Alone * ADLs Independent * Equipment None * List name and contact numbers for known caregivers / representatives who currently or will assist patient after discharge: LEONELA AMES (DAUGHTER) [phone] * Verbal permission to speak to the caregivers and representatives has been obtained from the patient. N/A * Community resources currently utilized None * Additional services required to return to the preadmission environment? Yes * Can the patient safely return to the preadmission environment? Yes * Has this patient been hospitalized within the prior 30 days at any hospital? No Coverage Notice Reviewer: [id number] - Daija Calixto Notice Issued Date-Time: 05/14/2019 15:02 Notice Type: Patient Choice Letter Notice Delivered To: Patient Relationship to Patient: Self Magnetic Healer Name: Delivery Method: HAND - Hand Delivered Agustina Days: Prior Verbal Notification: Recipient Understood Notice: Yes Recipient Signature: Yes Med Rec Note Co-signed by Attending: Coverage Notice Comment: TYE FOR [facility] OR [place] FOR IV ABX Reviewer: [id number] - Ar Weiss Notice Issued Date-Time: 05/19/2019 15:00 Notice Type: IM Discharge Notice Notice Delivered To: Patient Relationship to Patient: Magnetic Healer Name: Delivery Method: HAND - Hand Delivered Agustina Days: Prior Verbal Notification: Recipient Understood Notice: Yes Recipient Signature: Yes Med Rec Note Co-signed by Attending: Coverage Notice Comment: Last DP export: 05/19/19 2:28 p Patient Name: GOSIA AMES Page 47104 at 1536 All edits/amendments must be made on the electronic document DICTATION DATE: 05/19/191535 COMBINING MACHINE OPERATOR: DAVID 05/19/19 1536 RPT#: [id number] DC DATE: STATUS: ADM IN [facility] [address] [place] [address] END OF REPORT
--- NOTE | 2019-05-19 17:29 | NUR ---
PT DISCHARGED. HOME HEALTH HERE TO [facility] ANTIBOTIC FOR HOME. DISCHARGE INSTRUCTIONS GIVEN. PT HAS PICC LINE IN FOR HOME IV THERAPY. TO PRIVATE CAR PER WHEELCHAIR
== END 2019-05-19 17:33 | disposition home health service (06) | DRG 853 ==
LOC: D.ER 19:05 → D.MS 22:51 → D.M2 05-16 23:30 → D.SDCHOLD 05-19 14:26 → D.M2 05-19 17:33
PROVIDERS: Family Medicine; Internal Medicine Nephrology; ADMIT Family Medicine; ATTEND Family Medicine
PROC: 0PBK0ZZ Excision of Right Ulna, Open Approach (ICD-10-PCS; principal; 2019-05-12)
DX: A41.9 Sepsis, unspecified organism (principal); E43 Unspecified severe protein-calorie malnutrition; K85.90 Acute pancreatitis without necrosis or infection, unspecified; N39.0 Urinary tract infection, site not specified; F17.203 Nicotine dependence unspecified, with withdrawal; E87.1 Hypo-osmolality and hyponatremia; K56.7 Ileus, unspecified; I48.92 Unspecified atrial flutter; M86.8X3 Other osteomyelitis, forearm; E86.0 Dehydration; D64.9 Anemia, unspecified; I25.10 Atherosclerotic heart disease of native coronary artery without angina pectoris; I49.3 Ventricular premature depolarization; K21.9 Gastro-esophageal reflux disease without esophagitis; M19.90 Unspecified osteoarthritis, unspecified site; B96.20 Unspecified Escherichia coli [E. coli] as the cause of diseases classified elsewhere; I25.2 Old myocardial infarction; Z72.89 Other problems related to lifestyle

== ENCOUNTER → 2019-05-27 20:03 | Outpatient (CLI) | payer OTHER ==
[2019-05-14 12:22] VITALS: BMI 34.9
[~2019-05-27 20:03] MED LIST changes: +HYDROCODON-ACE1 EA10 PO; +HYDROCODON-ACE1 EAC7 PO; +LOPRESSOR25 MG PO; +MIRALAX17 GM PO; +NAFCILLIN 2 GM/N2 G1 IV
[2019-05-27 20:24] LABS: BASOPHILS 0.4 % (0-2); EOSINOPHILS 5.3 % (0-7); HEMATOCRIT 34.5 % (42.0-54.0); HEMOGLOBIN 11.1 g/dL (13.5-17.5); IMMATURE GRANULOCYTES 0.3 % (0-5); LYMPHOCYTES 21.9 % (15-50); MCH 28.8 pg (26.0-34.0); MCHC 32.2 g/dL (31.0-37.0); MCV 89.6 fL (80.0-100.0); MEAN PLATELET VOLUME 8.4 fL (7.4-10.4); MONOCYTES 4.6 % (2-11); NEUTROPHILS 67.5 % (40-80); RBC 3.85 10x6/uL (4.20-6.10); RDW 15.8 % (11.5-14.5); WBC 7.6 10x3/uL (4.8-10.8)
[2019-05-27 20:27] LABS: PLATELET COUNT 813 10x3/uL (130-400)
[2019-05-27 20:41] LABS: C-REACTIVE PROTEIN 8.5 mg/dL (0.0-0.9)
[2019-05-27 21:31] LABS: ERYTHROCYTE SEDIMENTATION RATE 90 mm/hr (0-20)
== END | disposition home or self-care (01) ==
LOC: D.LABREF 20:03
PROVIDERS: ATTEND Orthopaedic Surgery
DX: M86.121 Other acute osteomyelitis, right humerus (principal)

== ENCOUNTER → 2019-06-24 13:23 | Outpatient (CLI) | payer OTHER ==
[2019-05-14 12:22] VITALS: BMI 34.9
[2019-06-24 14:11] LABS: BASOPHILS 0.3 % (0-2); EOSINOPHILS 9.7 % (0-7); HEMATOCRIT 35.2 % (42.0-54.0); HEMOGLOBIN 11.4 g/dL (13.5-17.5); IMMATURE GRANULOCYTES 0.3 % (0-5); LYMPHOCYTES 21.7 % (15-50); MCH 28.6 pg (26.0-34.0); MCHC 32.4 g/dL (31.0-37.0); MCV 88.4 fL (80.0-100.0); MEAN PLATELET VOLUME 8.6 fL (7.4-10.4); MONOCYTES 2.4 % (2-11); NEUTROPHILS 65.6 % (40-80); PLATELET COUNT 474 10x3/uL (130-400); RBC 3.98 10x6/uL (4.20-6.10); RDW 17.4 % (11.5-14.5); WBC 11.6 10x3/uL (4.8-10.8)
[2019-06-24 15:19] LABS: ERYTHROCYTE SEDIMENTATION RATE 108 mm/hr (0-20)
[2019-06-24 17:49] LABS: C-REACTIVE PROTEIN 13.1 mg/dL (0.0-0.9); CREATININE - SERUM 1.1 mg/dL (0.6-1.3)
== END | disposition home or self-care (01) ==
LOC: D.LABREF 13:23
PROVIDERS: ATTEND Orthopaedic Surgery
DX: M86.121 Other acute osteomyelitis, right humerus (principal)

== ENCOUNTER → 2019-06-26 18:23 | Outpatient (CLI) | payer OTHER ==
[2019-05-14 12:22] VITALS: BMI 34.9
== END | disposition home or self-care (01) ==
LOC: D.LABREF 18:23
PROVIDERS: ATTEND Orthopaedic Surgery
DX: M86.121 Other acute osteomyelitis, right humerus (principal)

== ENCOUNTER 2019-12-11 06:13 | Day surgery (SDC) | payer MEDICARE ==
[~2019-12-11] VITALS: Ht 172.7 cm; Wt 107.5 kg
[~2019-12-11 06:13] MED LIST changes: +VITAMIN D-3 PO
[2019-12-11 06:33] LABS: HEMATOCRIT 47.1 % (42.0-54.0); HEMOGLOBIN 15.5 g/dL (13.5-17.5); MCH 29.9 pg (26.0-34.0); MCHC 32.9 g/dL (31.0-37.0); MCV 90.9 fL (80.0-100.0); MEAN PLATELET VOLUME 8.8 fL (7.4-10.4); RBC 5.18 10x6/uL (4.20-6.10); RDW 15.3 % (11.5-14.5); WBC 10.3 10x3/uL (4.8-10.8)
[2019-12-11 07:23] LABS: APTT 32.3 SECONDS (22.8-39.4); INR 1.1 (0.85-1.17); PROTIME 14.2 SECONDS (11.6-15.0)
[2019-12-11 07:56] VITALS: BP 123/85; Ht 172.7 cm; Wt 107.5 kg
[2019-12-11] MEDS ORDERED: BACTRIM DS TAB1 EAC1 PO (12:29)
[2019-12-11] MEDS ORDERED: HYDROCODON-ACE1 EA10 PO (12:29)
--- NOTE | 2019-12-11 15:53 | NUR ---
1420 IV REMOVED AND PRESSURE HELD. 1445 PT DISCHARGED
--- NOTE | 2019-12-15 09:14 | OP ---
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 POSTOPERATIVE DIAGNOSIS: Chronic olecranon bursitis with early osteomyelitis of the right olecranon. PROCEDURE: 1. Excisional debridement to include skin, subcutaneous tissue, portions of fat, fascia, muscle and bone less than 20 cm in total. 2. Application of Restrata graft with platelet rich plasma and closure. SURGEON: Angie Galvan MD ANESTHESIA: General. INTRAOPERATIVE COMPLICATIONS: None. OPERATIVE SUMMARY: The patient had a very small area of soft spongy feeling bone as if to be the first start of osteomyelitis. This was curettaged in its entirety and sent for culture. The very small incision was elongated enought so that the undermining could be exposed and irrigated. After excisional curettage and rongeur debridement of the entire cavity was completed, PRP soaked Restrata was placed into the wound into the undermining. The wound was then oversewn, closed with 2-0 Prolene. Sterile dressings were applied. The patient was awakened, taken to the recovery room in stable condition. All final needle and sponge counts were correct. TRANSINT:[id number] Voice Confirmation ID: [id number] DOCUMENT ID: [id number] ANGIE GALVAN MD at 0914 CC: [id number] DICTATION DATE: 12/11/19 1243 PRECINCT I POLICE SERGEANT: 12/11/19 2235 [facility] 12/11/[address] [address]
== END 2019-12-11 14:45 | disposition home or self-care (01) ==
LOC: D.OPS 06:13 → D.PAN 09:30 → D.OPS 10:30
PROVIDERS: Anesthesiology; ATTEND Orthopaedic Surgery
DX: M70.21 Olecranon bursitis, right elbow (principal); M86.8X8 Other osteomyelitis, other site; J44.9 Chronic obstructive pulmonary disease, unspecified; Z72.0 Tobacco use
CPT/HCPCS: 11044; 0232T

== ENCOUNTER → 2019-12-23 07:51 | Outpatient (CLI) | payer MEDICARE ==
[2019-12-11 07:56] VITALS: BMI 36.1
[~2019-12-23 07:51] MED LIST changes: +BACTRIM DS TAB1 EAC1 PO
== END | disposition home or self-care (01) ==
LOC: D.CT 07:51
PROVIDERS: ATTEND Clinical Nurse Specialist Family Health
DX: R91.8 Other nonspecific abnormal finding of lung field (principal)

== ENCOUNTER 2020-01-29 07:28 | Day surgery (SDC) | payer MEDICARE ==
[~2020-01-29] VITALS: Ht 172.7 cm; Wt 107.7 kg
[2020-01-29 07:49] LABS: BASOPHILS 0.3 % (0-2); EOSINOPHILS 4.5 % (0-7); HEMATOCRIT 46.5 % (42.0-54.0); HEMOGLOBIN 15.2 g/dL (13.5-17.5); IMMATURE GRANULOCYTES 0.3 % (0-5); LYMPHOCYTES 33.7 % (15-50); MCH 30.6 pg (26.0-34.0); MCHC 32.7 g/dL (31.0-37.0); MCV 93.8 fL (80.0-100.0); MEAN PLATELET VOLUME 9.5 fL (7.4-10.4); MONOCYTES 4.6 % (2-11); NEUTROPHILS 56.6 % (40-80); PLATELET COUNT 350 10x3/uL (130-400); RBC 4.96 10x6/uL (4.20-6.10); WBC 9.3 10x3/uL (4.8-10.8)
[2020-01-29 08:07] LABS: CALCIUM 9.1 mg/dL (8.5-10.1); CARBON DIOXIDE 27.9 mmol/L (21.0-32.0); CREATININE - SERUM 1.4 mg/dL (0.6-1.3); POTASSIUM - SERUM 3.9 mmol/L (3.5-5.1)
[2020-01-29 08:13] LABS: APTT 23.8 SECONDS (22.8-39.4); INR 0.97 (0.85-1.17); PROTIME 12.9 SECONDS (11.6-15.0)
[2020-01-29] MEDS ORDERED: FISH OIL 1,0001 CA1 (08:59)
[2020-01-29] MEDS ORDERED: FOLIC ACID1 MG PO (08:59)
[2020-01-29 09:10] VITALS: BP 135/82; Ht 172.7 cm; Wt 107.7 kg
--- NOTE | 2020-01-29 09:16 | NUR ---
0908 PT STATES THAT HE HAD HIS RIGHT ELBOW EVALUATED BY DR GALVAN YESTERDAY WHO TOLD HIM THAT HIS ELBOW "LOOKED GOOD AND TO CONTINUE HIS PROTOCOL OF WOUND CARE" WHICH IS BETADINE AND COLLOGEN GEL. PT HAS HAD A HX OF MRSA IN THAT ELBOW EARLIER THIS YEAR AND WAS HOSPITALIZED FOR THAT INFECTION.
--- NOTE | 2020-01-29 09:30 | NUR ---
4662 SPOKE WITH GEORGE BONILLA WHO STATES THAT PT'S RIGHT ARM HAS NOT BEEN CULTURED RECENTLY AND THAT IT IS HEALING.
--- NOTE | 2020-01-29 14:16 | NUR ---
1305 VITAL SIGNS ARE BEING RECORDED ORDERED ON POST PROCEDURE FORM. 1422 TRANSFER OF CARE REPORT GIVEN TO MARGARITA BOSWELL RN
--- NOTE | 2020-01-29 16:05 | NUR ---
1600 CXR NOTED AND IV REMOVED PT DRINKING COKE. INSTRUCTIONS GIVEN
== END 2020-01-29 16:07 | disposition home or self-care (01) ==
LOC: D.SP 07:28 → D.CT 10:00 → D.SP 16:07
PROVIDERS: Radiology Vascular & Interventional Radiology; ATTEND Internal Medicine Hematology & Oncology
DX: C34.11 Malignant neoplasm of upper lobe, right bronchus or lung (principal)

== ENCOUNTER → 2020-02-18 19:15 | Outpatient (CLI) | payer MEDICARE ==
[2020-01-29 09:10] VITALS: BMI 36.1
[~2020-02-18 19:15] MED LIST changes: +FISH OIL 1,0001 CA1
== END | disposition home or self-care (01) ==
LOC: D.LABREF 19:15
PROVIDERS: ATTEND Clinical Nurse Specialist Family Health
DX: M70.21 Olecranon bursitis, right elbow (principal)

== ENCOUNTER → 2020-07-01 11:18 | Outpatient (CLI) | payer MEDICARE ==
[2020-01-29 09:10] VITALS: BMI 36.1
== END | disposition home or self-care (01) ==
LOC: D.HCCECHO 11:18
PROVIDERS: ATTEND Internal Medicine Cardiovascular Disease
DX: I25.10 Atherosclerotic heart disease of native coronary artery without angina pectoris (principal)

== ENCOUNTER 2020-10-01 11:13 | Inpatient (IN) | payer MEDICARE ==
[~2020-10-01] VITALS: Ht 172.7 cm; Wt 107.5 kg
--- NOTE | ~2020-10-01 | HEMODYNAMI ---
PATIENT:GOSIA AMES MEDICAL RECORD: [id number] : 64 [id number] ADMISSION DATE: 10/01/20 Generatedon:18:32 Patient name: GOSIA AMES Patient #: [id number] SSN: : 1960 Date of study: 10/07/2020 Page: Of Hemodynamic Procedure Report Patient Data Patient Demographics Procedure consent was obtained First Name: GOSIA Gender: Male Last Name: KWAKU : 1960 Middle Initial: SURAJ Age: 59 year(s) Patient #: [id number] Race: Unknown Additional ID: [id number] Contact details Address: [address] [place] [address] State: [place] City: [facility] Zip code: [address] Past Medical History Allergies Allergen Reaction Date Comments Reported Other allergy 10/07/2020 ambien Admission Admission Data Admission Date: 10/01/2020 Admission Time: 14:52 Room #: [id number].2214 Height (in.): 68 BSA: 2.19 (m2) Height (cm.): 172.72 BMI: 35.88 (kg/m2) Weight (lbs.): 236 Weight (kg.): 107.05 Procedure Procedure Types Cath Procedure Peripheral Cath Diagnostic Procedure PICC PICC Line Placement Procedure Description Procedure Date Procedure Date: 10/07/2020 Procedure Start Time: 8:16 Procedure Staff Name Function Hitesh Marrero MD Performing Physician Vero Alvarez RT Director Of Safety Dana Charles RN Nurse YU STONE RT Scrub Procedure Data Cath Procedure Fluoroscopy Diagnostic fluoroscopy Total fluoroscopy Time: 0.3 time: 0.3 min min Diagnostic fluoroscopy Total fluoroscopy dose: 6 dose: 6 mGy mGy Hemodynamics Rest BSA: 2.19 (m2) O2 Consumption: Estimated: 297.84 (ml/min) O2 Consumption indexed : Estimated:136 (ml/min/m) Pre Cath Intra NCS Post Cath Procedure Log Time Note 8:05:34 Patient Height : 68 inches 8:06:03 Patient Weight : 236 lbs 8:09:31 Time tracking: Regular hours (M-F 7:00 - 5:00) 8:10:17 Signed procedure consent form obtained from patient. 8:10:27 Patient received from Med/Surg to IR Alert and oriented. Tansferred to table in Supine position. 8:10:38 Left Arm area was prepped with chlora-prep and draped in sterile fashion 8:12:27 Patient allergic to Other allergyambien 8:16:50 Procedure started. 8:16:50 Full Disclosure recording started 8:17:05 Venous access obtained using ultrasound guidance. 8:20:36 Use device set PICC 8:20:38 SHIELD Sorbaview ([id number]) opened to sterile field. 8:20:38 Sterile Angiographic Pack opened to sterile field. 8:20:39 Bag Decanter () opened to sterile field. 8:20:50 PowerPICC 5Fr double lumen catheter opened to sterile field. 8:20:59 PICC line was trimmed to 43cm and advanced to the superior vena cava.Position verified under fluoroscopy. 8:27:45 Procedure ended.(Physican Out) 8:28:14 Fluoroscopy time 00.30 minutes. 8:28:18 Fluoroscopy dose: 6 mGy 8:28:18 Flurop Dose total: 6 8:32:20 Procedure and supply charges have been captured, reviewed, submitted and are correct. 8:32:24 Report given to Med/Surg. 8:32:30 Patient transfered to Med/Surg with Wheelchair. Device Usage Item Name Manufacture Quantity Catalog Hospital Part Current Minimal Lot# / Number Charge Number Stock Stock Serial# Code SHIELD Centurion 1 [id number] Sorbaview ([id number]) Sterile Cardinal 1 [id number] 5 Angiographic Health Pack Bag Decanter Microtek 1 [id number] [id number] 5 () [employer] Inc. PowerPICC Bard 1 [id number] 5 5Fr double lumen catheter Signature Audit [place] Stage Time Signature Unsigned Intra-Procedure 10/07/2020 Vero Alvarez 8:32:42 AM RT(R) [facility] [address] [place] [address]
[2020-10-01 12:59] LABS: EOSINOPHILS 6.7 % (0-7); HEMOGLOBIN 13.2 g/dL (13.5-17.5); LYMPHOCYTES 21.9 % (15-50); MCHC 33.9 g/dL (31.0-37.0); MCV 91.4 fL (80.0-100.0); MEAN PLATELET VOLUME 6.8 fL (7.4-10.4); MONOCYTES 7.9 % (2-11); NEUTROPHILS 62.5 % (40-80); PLATELET COUNT 368 10x3/uL (130-400); RBC 4.27 10x6/uL (4.20-6.10); RDW 15.4 % (11.5-14.5); WBC 11.4 10x3/uL (4.8-10.8)
[2020-10-01 13:14] LABS: APTT 25.2 SECONDS (22.8-39.4); CALCIUM 9.3 mg/dL (8.5-10.1); CARBON DIOXIDE 29.2 mmol/L (21.0-32.0); CREATININE - SERUM 1.1 mg/dL (0.6-1.3); INR 1.11 (0.85-1.17); POTASSIUM - SERUM 4.2 mmol/L (3.5-5.1); PROTIME 13.2 SECONDS (11.6-15.0)
[2020-10-01 13:19] LABS: ALBUMIN 2.6 g/dL (3.4-5.0); BILIRUBIN - TOTAL 0.27 mg/dL (0.2-1.3); C-REACTIVE PROTEIN 11.2 mg/dL (0.0-0.9); MAGNESIUM - SERUM 1.8 mg/dL (1.8-2.4); PROTEIN - SERUM 6.7 g/dL (6.4-8.2)
[2020-10-01 14:08] LABS: ERYTHROCYTE SEDIMENTATION RATE 58 mm/hr (0-20)
[2020-10-01 14:14] VITALS: BP 107/70
--- NOTE | 2020-10-01 16:48 | NUR ---
REPORT TO JOHANNA SETH
--- NOTE | 2020-10-01 17:40 | NUR ---
RTND FROM MRI. REPORTS PAIN "OK RIGHT NOW"
[2020-10-01 17:45] VITALS: BP 101/59
--- NOTE | 2020-10-01 18:32 | NUR ---
TRANSPORTED TO ROOM # 2214 CONDITION STABLE.
[2020-10-01 18:45] VITALS: BP 92/52; BMI 36.1
--- NOTE | 2020-10-01 18:49 | NUR ---
PATIENT ADMITTED TO ROOM 2214. ADMISSION COMPLETE. VSS. REQUESTED AND GIVEN DINNER TRAY. REQUESTING TO GO OUT AND SMOKE. EDUCATION PROVIDED TO PATIENT THAT HE IS UNABLE TO LEAVE TO SMOKE AND NO SMOKING AREA ON PREMISES. REFUSES NICOTINE PATCH. SAYS PATCHES DON'T WORK. WENT THROUGH [facility] BAG TO MAKE SURE PATIENT DID NOT HAVE CIGARETTS. DID NOT SEE ANY IN BAG. BELONGINGS LIST IN HISTORY. PATIENT DENIES FURTHER NEEDS. AT THIS TIME.
[2020-10-01 21:57] VITALS: BP 107/59
[2020-10-02 05:41] LABS: BASOPHILS 0.4 % (0-2); EOSINOPHILS 7.9 % (0-7); HEMATOCRIT 40.6 % (42.0-54.0); HEMOGLOBIN 13.1 g/dL (13.5-17.5); IMMATURE GRANULOCYTES 0.5 % (0-5); LYMPHOCYTE ABS# 2.21 10x3/uL (1.32-3.57); LYMPHOCYTES 29.5 % (15-50); MCH 30.4 pg (26.0-34.0); MCHC 32.3 g/dL (31.0-37.0); MEAN PLATELET VOLUME 9.4 fL (7.4-10.4); MONOCYTES 8.4 % (2-11); NEUTROPHILS 53.3 % (40-80); RBC 4.31 10x6/uL (4.20-6.10); RDW 14.7 % (11.5-14.5)
[2020-10-02 05:42] LABS: MCV 94.2 fL (80.0-100.0); PLATELET COUNT 288 10x3/uL (130-400); WBC 7.5 10x3/uL (4.8-10.8)
[2020-10-02 06:08] LABS: ALBUMIN 2.3 g/dL (3.4-5.0); ANION GAP 10.3 mmol/L (8-16); BILIRUBIN - TOTAL 0.27 mg/dL (0.2-1.3); CALCIUM 8.7 mg/dL (8.5-10.1); CARBON DIOXIDE 27.4 mmol/L (21.0-32.0); CREATININE - SERUM 1.3 mg/dL (0.6-1.3); MAGNESIUM - SERUM 1.9 mg/dL (1.8-2.4); POTASSIUM - SERUM 3.7 mmol/L (3.5-5.1); PROTEIN - SERUM 6.2 g/dL (6.4-8.2)
--- NOTE | 2020-10-02 09:00 | NUR ---
ASSESSMENT PER FLOW SHEET. PATIENT IS WITHOUT DISTRESS.IV WENT BAD AT SHIFT CHANGE. IV DCD WITH CATH TIP INTACT. I HAVE TRIED TO RESITE X2 USING ASEPTIC TECH. UNABLE TO SITE IV.MONITOR FOR NEEDS
--- NOTE | 2020-10-02 09:20 | NUR ---
SPOKE WITH DR. FUNMILAYO FINN.. CVL.
[2020-10-02 09:28] VITALS: BP 132/72
[2020-10-02 12:16] VITALS: BP 124/61
--- NOTE | 2020-10-02 15:13 | NUR ---
OK TO USE CVL PER DR. MELLO.
[2020-10-02 17:08] VITALS: BP 148/80
[2020-10-02 20:00] VITALS: BP 112/66
--- NOTE | 2020-10-02 23:43 | NUR ---
RESTING QUETILY WITH NO DISTRESS NOTED. NPO AFTER MN FOR SURGERY TOMORROW.
[2020-10-03 04:28] VITALS: BP 118/53
[2020-10-03 07:05] LABS: BASOPHILS 0.7 % (0-2); EOSINOPHILS 7.3 % (0-7); HEMATOCRIT 36.8 % (42.0-54.0); HEMOGLOBIN 12.3 g/dL (13.5-17.5); LYMPHOCYTES 26.4 % (15-50); MCH 30.4 pg (26.0-34.0); MCHC 33.4 g/dL (31.0-37.0); MONOCYTES 5.5 % (2-11); NEUTROPHILS 60.1 % (40-80); RBC 4.03 10x6/uL (4.20-6.10); RDW 15.2 % (11.5-14.5)
[2020-10-03 07:07] LABS: MCV 91.2 fL (80.0-100.0); PLATELET COUNT 353 10x3/uL (130-400)
--- NOTE | 2020-10-03 07:52 | NUR ---
IN BED RESTING. BED LOW POSITION, CALL LIGHT IN REACH. AROUSES TO VOICE, DENIES NEEDS AT THIS TIME. FREE FROM SIGNS OF DISTRESS. WILL CONTINUE TO MONITOR.
[2020-10-03 08:02] LABS: ALBUMIN 2.4 g/dL (3.4-5.0); ANION GAP 10.1 mmol/L (8-16); BILIRUBIN - TOTAL 0.44 mg/dL (0.2-1.3); CALCIUM 8.6 mg/dL (8.5-10.1); CARBON DIOXIDE 29.8 mmol/L (21.0-32.0); CREATININE - SERUM 1.2 mg/dL (0.6-1.3); MAGNESIUM - SERUM 1.7 mg/dL (1.8-2.4); POTASSIUM - SERUM 3.9 mmol/L (3.5-5.1); PROTEIN - SERUM 5.8 g/dL (6.4-8.2)
[2020-10-03 08:53] VITALS: BP 114/61
[2020-10-03 12:58] VITALS: BP 120/58
[2020-10-03 19:25] VITALS: BP 153/69
[2020-10-03 20:00] VITALS: BP 137/75
[2020-10-04] VITALS: BP 119/67
--- NOTE | 2020-10-04 03:00 | NUR ---
I have reviewed this patient and I concur with the Shift Assessment completed by the Licensed Practical Nurse today this shift.
[2020-10-04 05:36] LABS: EOSINOPHILS 3.7 % (0-7); HEMATOCRIT 36.1 % (42.0-54.0); HEMOGLOBIN 12.3 g/dL (13.5-17.5); LYMPHOCYTES 20.5 % (15-50); MCH 31.1 pg (26.0-34.0); MCHC 34.1 g/dL (31.0-37.0); MCV 91.4 fL (80.0-100.0); MEAN PLATELET VOLUME 7.2 fL (7.4-10.4); MONOCYTES 5.3 % (2-11); NEUTROPHILS 69.5 % (40-80); PLATELET COUNT 357 10x3/uL (130-400); RBC 3.94 10x6/uL (4.20-6.10); RDW 15.3 % (11.5-14.5)
[2020-10-04 05:55] LABS: ALBUMIN 2.4 g/dL (3.4-5.0); ANION GAP 13.3 mmol/L (8-16); BILIRUBIN - TOTAL 0.59 mg/dL (0.2-1.3); CALCIUM 8.5 mg/dL (8.5-10.1); CARBON DIOXIDE 26.4 mmol/L (21.0-32.0); CREATININE - SERUM 1.3 mg/dL (0.6-1.3); POTASSIUM - SERUM 3.7 mmol/L (3.5-5.1); PROTEIN - SERUM 6.4 g/dL (6.4-8.2)
[2020-10-04 05:56] LABS: WBC 10.7 10x3/uL (4.8-10.8)
--- NOTE | 2020-10-04 07:37 | NUR ---
PATIENT REQUESTED PAIN MEDICATION STATED PAIN IS AT A 9, PATIENT THEN REQUESTED TO BE WHEELED OUTSIDE FOR A CIGARETTE, INFORMED PATIENT WE ARE UNABLE TO TAKE HIM OUTSIDE, OFFERED PATCHA ND PATIENT DECLINED, CONTINUE WITH PLAN OF CARE
--- NOTE | 2020-10-04 07:42 | OP ---
PATIENT NAME: GOSIA AMES MEDICAL RECORD: [id number] :64 LOCATION:D.MS P[facility]2214 ADMISSION DATE:10/01/20 SURGEON: SYLVESTER JOLLEY DO DATE OF OPERATION: 10/03/2020 PROCEDURE PERFORMED: Right elbow incision and debridement with a bone biopsy. PREOPERATIVE DIAGNOSIS: Right septic elbow with osteomyelitis POSTOPERATIVE DIAGNOSIS: Right septic elbow with osteomyelitis. INDICATIONS: The patient is a 59-year-old male who has severe rheumatoid arthritis as well as has had a right septic elbow in the past. He came into the ER a few days ago with a large swollen elbow. Increased ESR and CRP, which is unknown if that is due to his rheumatoid or due to infection. He was started on IV antibiotics. I got him finally into the OR today due to scheduling. He was admitted on the . I then informed him of the risks of the surgery including amputation, infection, bleeding, damage to nerve or vessel, need for further surgery, loss of use of the elbow, fracture, and even and he signed a consent. SURGEON: Sylvester Jolley D.O. DESCRIPTION OF PROCEDURE: The patient was taken to the operative suite, laid in left lateral decubitus position with the right shoulder up and sedated and LMA was placed. The right arm was then prepped and draped in sterile fashion. He has been given antibiotics on the floor. Timeout was performed. Everyone was in agreement with the correct side, site, patient, and procedure. We then began by making an incision of the posterior elbow since he has had a large fluid collection there on the MRI as well in the anterior elbow. I made an incision and made careful dissection down to the fluid collection and then it ruptured. Copious amounts of purulent fluid came out of it. He did have a sinus tract down into the elbow joint. I followed it down, opened it up and split the triceps and more purulent fluid came out. I then lifted the olecranon to get into the joint. As I lifted the piece it broke off and I sent it for bone biopsy. I then irrigated and used a [place] to debride to the level of the bone and the joint and the elbow joint with a curette as well and then irrigated 3 liters of normal saline throughout the elbow and surrounding area, I then closed the triceps with #1 Vicryl in a running fashion and then the skin with 2-0 Vicryl in inverted fashion and prior to closing the skin removed where the skin was necrotic over the olecranon due to the pressure from the fluid in the joint, removed it and closed the skin with 2-0 Vicryl in inverted interrupted fashion and placed ZipLine on it and then dressed with Adaptic, 4 x 4s, ABD, cast padding, Adolfo wrap wrapped up from the hand up. He was then awakened and taken to recovery in stable condition. BLOOD LOSS: Approximately 100 mL. COMPLICATIONS: None. TRANSINT:[id number] Voice Confirmation ID: [id number] DOCUMENT ID: [id number] OPERATIVE REPORT [id number] GOSIA AMES,SYLVESTER Lynch DO at 0742 CC: [id number] DICTATION DATE: 10/03/20 1843 VERTICAL BORING MILL OPERATOR: 10/03/20 2312 ADM IN [facility] [address] [place] [address]
[2020-10-04 10:07] VITALS: BP 114/50
--- NOTE | 2020-10-04 11:26 | NUR ---
PATIENT CONTINUES TO GO OUTSIDE AFTER ASKING PATIENT TO STAY INSIDE, PATIENT STATES HE IS JUST GOING AROUND UNIT BUT IS GONE FOR OVER 45MINUTES. UNABLE TO KEEP PATIENT IN ROOM
[2020-10-04 14:18] VITALS: Ht 172.7 cm; Wt 107.5 kg
--- NOTE | 2020-10-04 14:32 | NUR ---
I have reviewed this patient and I concur with the Shift Assessment completed by the Licensed Practical Nurse today this shift.
[2020-10-04 19:34] VITALS: BP 117/67
--- NOTE | 2020-10-05 02:53 | NUR ---
I have reviewed this patient and I concur with the Shift Assessment completed by the Licensed Practical Nurse today this shift.
[2020-10-05 04:03] VITALS: BP 92/45
[2020-10-05 04:23] LABS: BASOPHILS 1.1 % (0-2); EOSINOPHILS 8.8 % (0-7); HEMOGLOBIN 11.9 g/dL (13.5-17.5); LYMPHOCYTES 26.2 % (15-50); MCH 30.3 pg (26.0-34.0); MCHC 33.1 g/dL (31.0-37.0); MCV 91.6 fL (80.0-100.0); MEAN PLATELET VOLUME 7.2 fL (7.4-10.4); MONOCYTES 7.3 % (2-11); NEUTROPHILS 56.6 % (40-80); PLATELET COUNT 336 10x3/uL (130-400); RBC 3.93 10x6/uL (4.20-6.10); RDW 15.5 % (11.5-14.5)
[2020-10-05 04:30] LABS: WBC 6.8 10x3/uL (4.8-10.8)
[2020-10-05 04:37] LABS: ALBUMIN 2.2 g/dL (3.4-5.0); ANION GAP 12.7 mmol/L (8-16); BILIRUBIN - TOTAL 0.42 mg/dL (0.2-1.3); CALCIUM 8.4 mg/dL (8.5-10.1); CARBON DIOXIDE 28.9 mmol/L (21.0-32.0); CREATININE - SERUM 1.4 mg/dL (0.6-1.3); MAGNESIUM - SERUM 1.9 mg/dL (1.8-2.4); POTASSIUM - SERUM 3.6 mmol/L (3.5-5.1); PROTEIN - SERUM 6.2 g/dL (6.4-8.2); VANCOMYCIN - TROUGH 16.2 ug/mL (10.0-20.0)
--- NOTE | 2020-10-05 07:15 | NUR ---
REC'D IN BED AWAKE AND ALERT. RESP EVEN AND UNLABORED WITH NO DISTRESS NOTED. CAN EXPRESS NEEDS AND WANTS. NO C/O NOTED OR VOICED. ASSESSMENT COMPLETED. C/L IN REACH AT BEDSIDE.
[2020-10-05 08:56] VITALS: BP 118/50
--- NOTE | 2020-10-05 10:33 | NUR ---
PATIENT UNHOOKED FROM IV TO GO FOR A WALK PER REQUEST.
[2020-10-05 12:32] LABS: BILIRUBIN NEGATIVE (NEGATIVE); KETONE NEGATIVE (NEGATIVE); NITRITE NEGATIVE (NEGATIVE)
[2020-10-05 12:38] VITALS: BP 124/61
--- NOTE | 2020-10-05 17:19 | NUR ---
I have reviewed this patient and I concur with the Shift Assessment completed by the Licensed Practical Nurse today this shift.
[2020-10-05 19:58] VITALS: BP 154/78
[2020-10-06 00:33] VITALS: BP 150/52
--- NOTE | 2020-10-06 03:24 | NUR ---
I have reviewed this patient and I concur with the Shift Assessment completed by the Licensed Practical Nurse today this shift.
--- NOTE | 2020-10-06 03:48 | NUR ---
PT SLEEPING IN ROOM, OPEN BOTTLE OF ALPRAZOLAM 1MG TABLETS IN ROOM (PRESCRIBED TO PT). PRESCRIPTION FILLED ON 09/25/20 QUANITY 60 TABLETS, 1 TAB TWICE A DAY NEEDED. 9 TABLETS CURRENTLY IN CONTAINER. REMOVED FROM ROOM AND WITNESSED BY CHARGE NURSE, SUZIE SPENCER. Placed in pharmacy bag, will verify with pt.
[2020-10-06 04:00] VITALS: BP 127/64
--- NOTE | 2020-10-06 06:32 | NUR ---
INFORMED PT PRESCRIPTION NEEDS TO GO TO PHARMACY UNTIL DISCHARGE. PT UNABLE TO SIGN WITH RIGHT HAND, SIGNED FOR PT PER REQUEST. PTS HOME PRESCRIPTION OF ALPRAZOLAM TAKEN TO PHARMACY.
[2020-10-06 06:49] LABS: ALBUMIN 2.5 g/dL (3.4-5.0); ANION GAP 13.9 mmol/L (8-16); BILIRUBIN - TOTAL 0.47 mg/dL (0.2-1.3); CARBON DIOXIDE 25.5 mmol/L (21.0-32.0); CREATININE - SERUM 1.2 mg/dL (0.6-1.3); POTASSIUM - SERUM 3.4 mmol/L (3.5-5.1); PROTEIN - SERUM 6.8 g/dL (6.4-8.2)
[2020-10-06 07:39] LABS: BASOPHILS 0.5 % (0-2); EOSINOPHILS 10.9 % (0-7); HEMATOCRIT 38.3 % (42.0-54.0); LYMPHOCYTES 26.9 % (15-50); MCHC 34.1 g/dL (31.0-37.0); MEAN PLATELET VOLUME 7.1 fL (7.4-10.4); MONOCYTES 6.1 % (2-11); NEUTROPHILS 55.6 % (40-80); PLATELET COUNT 348 10x3/uL (130-400); RDW 15.2 % (11.5-14.5); WBC 6.4 10x3/uL (4.8-10.8)
--- NOTE | 2020-10-06 07:49 | NUR ---
WHEN DOING BEDSIDE REPORT. PATIENT STATES HE WANTS TO LEAVE. HE CALLED DAUGHTER AND SHE WAS ABLE TO GET HIM TO WAIT TO SEE THE DOCTOR TODAY. NOW RESTING IN BED. WILL CONTINUE TO MONITOR.
[2020-10-06 09:24] VITALS: BP 111/72
[2020-10-06 11:52] VITALS: BP 148/78
--- NOTE | 2020-10-06 14:04 | NUR ---
SPOKE TO [facility] ABOUT THE PICC PLACEMENT AND THEY SAID IT COULD NOT BE DONE TODAY AND WOULD BE SOMETIME TOMMOROW. NOTIFIED ELIJAH SÁNCHEZ APN, WELL MIKI LINDSEY, PARTY BUS DRIVER.
--- NOTE | 2020-10-06 15:03 | NUR ---
SPOKE TO PATIENT ABOUT WAITING UNTIL THE MORNING TO GET THE PICC LINE PLACED. HE IS IN AGREEANCE. NOTIFIED [facility] NARCOTICS AND/OR VICE DETECTIVE AND CALLED [facility] AND ASHVIN SAID THAT THEY WILL PUT HIM ON THE LIST TO BE DONE SOON POSSIBLE.
[2020-10-06 16:18] VITALS: BP 139/96
[2020-10-06 19:45] VITALS: BP 118/65
[2020-10-07 00:19] VITALS: BP 121/70
--- NOTE | 2020-10-07 04:15 | NUR ---
I have reviewed this patient and I concur with the Shift Assessment completed by the Licensed Practical Nurse today this shift.
[2020-10-07 04:26] VITALS: BP 119/62
--- NOTE | 2020-10-07 05:15 | NUR ---
DRESSING TO RIGHT ARM CHANGED PER ORDER. CTM.
[2020-10-07 06:33] LABS: BASOPHILS 0.5 % (0-2); EOSINOPHILS 11.4 % (0-7); HEMATOCRIT 41.2 % (42.0-54.0); HEMOGLOBIN 13.7 g/dL (13.5-17.5); LYMPHOCYTES 32.6 % (15-50); MCH 30.6 pg (26.0-34.0); MCHC 33.3 g/dL (31.0-37.0); MONOCYTES 7.4 % (2-11); NEUTROPHILS 48.1 % (40-80); PLATELET COUNT 403 10x3/uL (130-400); RBC 4.47 10x6/uL (4.20-6.10); RDW 15.5 % (11.5-14.5); WBC 7.4 10x3/uL (4.8-10.8)
[2020-10-07 07:09] LABS: ALBUMIN 2.6 g/dL (3.4-5.0); ANION GAP 15.6 mmol/L (8-16); BILIRUBIN - TOTAL 0.33 mg/dL (0.2-1.3); CALCIUM 9.4 mg/dL (8.5-10.1); CARBON DIOXIDE 24.1 mmol/L (21.0-32.0); CREATININE - SERUM 1.2 mg/dL (0.6-1.3); POTASSIUM - SERUM 3.7 mmol/L (3.5-5.1); PROTEIN - SERUM 7.1 g/dL (6.4-8.2)
--- NOTE | 2020-10-07 07:52 | MORECARE ---
CASE MANAGEMENT DISCHARGE SUMMARY PATIENT: GOSIA AMES UNIT: [id number] ADM DATE: 10/01/20 AGE: 59 : 64 SEX: M ROOM/BED: D.2214 AUTHOR: CHANTELLE,DOC PHYSICIAN: REFERRING PHYSICIAN: KHALIF JAUREGUI DO DATE OF SERVICE: 10/07/20 Case Management Discharge Planning Summary COMMENTS ENTERED DATE: 10/07/20 7:42 CT COMMENT TYPE: Discharge Planning REVIEWER: Magnolia Augustin PATIENT WILL BE DISCHARGING HOME WITH IV ABX AND HOME HEALTH I HAVE SENT THE ORDER FOR A GRAY QUOTE TO [facility] CAN NOT ACCEPT THE PATIENT AT THIS TIME, [facility] CAN NOT TAKE A PATIENT TILL NEXT WEEK, [facility] DOES NOT TAKE HUMANA, I HAVE SENT THE REFERRAL TO [facility] TO SEE IF THEY CAN ACCEPT THIS PATIENT CM TO FOLLOW PAP REVIEW SUMMARY ANTICIPATED D/C DATE: EXPECTED LOS : CASE STATUS: DCP Initiated INITIAL REVIEW: 10/01/2020 INITIAL REVIEWER: Magnolia Augustin FINAL DISCHARGE DISPOSITION: : FINAL REVIEWER: FINAL REVIEW DATE: P[facility] Questions & Answers QUESTION: ANSWER : PATIENT: GOSIA AMES ENCOUNTER: [id number] MEDICAL RECORD#: [id number] ADMISSION DATE: 10/01/2020 DISCHARGE DATE: ATTENDING MD: KHALIF KAYE : AGE: 59 MARITAL STATUS: S DC PLAN ID: [id number] FACILITY: [facility] PRINTED ON: 10/07/20 7:52 CT All edits/amendments must be made on the electronic document DICTATION DATE: 10/07/20751 HAZARDOUS SUBSTANCES ENGINEER: DAVID 10/07/20751 RPT#: [id number] DC DATE: STATUS: ADM IN [facility] [address] [place] [address] END OF REPORT
--- NOTE | 2020-10-07 08:02 | NUR ---
ALERT AND ORIENTED. ASSESSMENT COMPLETE. DENIES NEEDS. GOWN PLACED ON PATIENT TO HAVE PICC PLACED. BED LOW. CALL GONZALEZ AND PERSONAL ITEMS IN REACH. WILL CONTINUE TO MONITOR.
--- NOTE | 2020-10-07 09:41 | MORECARE ---
CASE MANAGEMENT DISCHARGE SUMMARY PATIENT: GOSIA AMES UNIT: [id number] ADM DATE: 10/01/20 AGE: 59 : 64 SEX: M ROOM/BED: D.2214 AUTHOR: CHANTELLE,DOC PHYSICIAN: REFERRING PHYSICIAN: KHALIF JAUREGUI DO DATE OF SERVICE: 10/07/20 Case Management Discharge Planning Summary COMMENTS ENTERED DATE: 10/07/20 9:34 CT COMMENT TYPE: Discharge Planning REVIEWER: Magnolia Augustin [facility] CAN NOT ACCEPT THE PATIENT TILL NEXT WEEK AT THE [facility] CAN NOT TAKE AN IV PATIENT AT THIS TIME I CALLED RAY WITH [facility] ASKING, BEGGING THEM TO TAKE HIM FELIX, HE WAS GOING TO TALK TO HIS BOSS AND SEE WHAT THEY CAN DO. CM TO FOLLOW AND ASSIST I AM STILL WAITING ON [facility] TO CALL ME ON A GRAY ENTERED DATE: 10/07/20 7:42 CT COMMENT TYPE: Discharge Planning REVIEWER: Magnolia Augustin PATIENT WILL BE DISCHARGING HOME WITH IV ABX AND HOME HEALTH I HAVE SENT THE ORDER FOR A GRAY QUOTE TO [facility] CAN NOT ACCEPT THE PATIENT AT THIS TIME, [facility] CAN NOT TAKE A PATIENT TILL NEXT WEEK, [facility] DOES NOT TAKE HUMANA, I HAVE SENT THE REFERRAL TO [facility] TO SEE IF THEY CAN ACCEPT THIS PATIENT CM TO FOLLOW [facility] REVIEW SUMMARY ANTICIPATED D/C DATE: EXPECTED LOS : CASE STATUS: DCP Initiated INITIAL REVIEW: 10/01/2020 INITIAL REVIEWER: Magnolia Augustin FINAL DISCHARGE DISPOSITION: : FINAL REVIEWER: FINAL REVIEW DATE: [facility] Focus Questions & Answers QUESTION: ANSWER : PATIENT: GOSIA AMES ENCOUNTER: [id number] MEDICAL RECORD#: [id number] ADMISSION DATE: 10/01/2020 DISCHARGE DATE: ATTENDING MD: KHALIF KAYE : AGE: 59 MARITAL STATUS: S DC PLAN ID: [id number] FACILITY: [facility] PRINTED ON: 10/07/20 9:41 CT All edits/amendments must be made on the electronic document DICTATION DATE: 10/07/20940 NATURAL RESOURCE MANAGER: DAVID 10/07/20940 RPT#: [id number] DC DATE: STATUS: ADM IN [facility] [address] [place] [address] END OF REPORT
--- NOTE | 2020-10-07 10:41 | NUR ---
LEFT SUBCLAVIAN CENTRAL LINE REMOVED WITH TIP INTACT FOR DC.
--- NOTE | 2020-10-07 12:15 | MORECARE ---
CASE MANAGEMENT DISCHARGE SUMMARY PATIENT: GOSIA AMES UNIT: [id number] ADM DATE: 10/01/20 AGE: 59 : 64 SEX: M ROOM/BED: D.2214 AUTHOR: CHANTELLE,DOC PHYSICIAN: REFERRING PHYSICIAN: KHALIF JAUREGUI DO DATE OF SERVICE: 10/07/20 Case Management Discharge Planning Summary COMMENTS ENTERED DATE: 10/07/20 12:06 CT COMMENT TYPE: Discharge Planning REVIEWER: Magnolia Augustin CM met with patient to complete initial dc planning assessment. CM educated patient on the CM role and verbal consent given by patient to complete assessment. Patient lives at home by himself, but stated that he was going to be staying at his daughters home. Her address is [address] [place] [address]. She stated that her ex- will also be there to help if needed. He stated that he plans to drive himself home and feels safe doing so. He also stated that this is his 3rd time for iv abx . He has spoken with Yajaira at [facility] and he used [facility] in the past. [facility] signed and IMM served and explained. He is eager to go home. Ernestina with [facility] called me and stated that he has an outstanding balance and she will need to speak with him before they will agree to take him back. I am still waiting to hear back from [facility] that they are going to accept him and when the first availability is. CM will continue to follow and will assist as needed with dc plans/needs. ENTERED DATE: 10/07/20 9:34 CT COMMENT TYPE: Discharge Planning REVIEWER: Magnolia Augustin [facility] CAN NOT ACCEPT THE PATIENT TILL NEXT WEEK AT THE [facility] CAN NOT TAKE AN IV PATIENT AT THIS TIME I CALLED MATTHEW WITH [facility] ASKING, BEGGING THEM TO TAKE HIM FELIX, HE WAS GOING TO TALK TO HIS BOSS AND SEE WHAT THEY CAN DO. CM TO FOLLOW AND ASSIST I AM STILL WAITING ON [facility] TO CALL ME ON A GRAY ENTERED DATE: 10/07/20 7:42 CT COMMENT TYPE: Discharge Planning REVIEWER: Magnolia Augustin PATIENT WILL BE DISCHARGING HOME WITH IV ABX AND HOME HEALTH I HAVE SENT THE ORDER FOR A GRAY QUOTE TO [facility] [place] CAN NOT ACCEPT THE PATIENT AT THIS TIME, [facility] CAN NOT TAKE A PATIENT TILL NEXT WEEK, [facility] DOES NOT TAKE HUMANA, I HAVE SENT THE REFERRAL TO [facility] TO SEE IF THEY CAN ACCEPT THIS PATIENT CM TO FOLLOW DCP REVIEW SUMMARY ANTICIPATED D/C DATE: EXPECTED LOS : CASE STATUS: DCP Initiated INITIAL REVIEW: 10/01/2020 INITIAL REVIEWER: Magnolia Augustin FINAL DISCHARGE DISPOSITION: : FINAL REVIEWER: FINAL REVIEW DATE: [facility] Questions & Answers QUESTION: ANSWER : PATIENT: GOSIA AMES ENCOUNTER: [id number] MEDICAL RECORD#: [id number] ADMISSION DATE: 10/01/2020 DISCHARGE DATE: ATTENDING MD: KHALIF KAYE : AGE: 59 MARITAL STATUS: S DC PLAN ID: [id number] FACILITY: [facility] PRINTED ON: 10/07/20 12:15 CT All edits/amendments must be made on the electronic document DICTATION DATE: 10/07/201213 FEDERAL JUDGE: DAVID 10/07/201213 RPT#: [id number] DC DATE: STATUS: ADM IN [facility] [address] [place] [address] END OF REPORT
[2020-10-07 14:48] LABS: ERYTHROCYTE SEDIMENTATION RATE 66 mm/hr (0-20)
--- NOTE | 2020-10-07 16:14 | NUR ---
DC EDUCATION PROVIDED BOTH WRITTEN AND VERBAL. VERBALIZED UNDERSTANDING. DENIES FURTHER QUESTIONS. PICC FLUSHED FOR DC. PATIENT DC HOME WITH ALL BELONGINGS. DENIES NEEDS.
--- NOTE | 2020-10-07 16:20 | MORECARE ---
CASE MANAGEMENT DISCHARGE SUMMARY PATIENT: GOSIA AMES UNIT: [id number] ADM DATE: 10/01/20 AGE: 59 : 64 SEX: M ROOM/BED: D.2214 AUTHOR: CHANTELLE,DOC PHYSICIAN: REFERRING PHYSICIAN: KHALIF JAUREGUI DO DATE OF SERVICE: 10/07/20 Case Management Discharge Planning Summary COMMENTS ENTERED DATE: 10/07/20 15:53 CT COMMENT TYPE: Discharge Planning REVIEWER: Magnolia Kamara with [facility] is here to teach the patient about iv abx ( this is his 3rd round of home IV abx) Patient also stated that Alicia Marrero RN ( patients niece ) can help with his IV abx her number [phone] I spoke with Yuki with [facility] and she stated that it was ok for [facility] to start on . We taz lab today. can draw lab on 10/14 & change dressing then resume the normal Sunday orders on 10/18/20 I have let sobia with [facility] know this. I will fax clinicals over to [facility] ENTERED DATE: 10/07/20 12:06 CT COMMENT TYPE: Discharge Planning REVIEWER: Magnolia Augustin CM met with patient to complete initial dc planning assessment. CM educated patient on the CM role and verbal consent given by patient to complete assessment. Patient lives at home by himself, but stated that he was going to be staying at his daughters home. Her address is [address] [place] [address]. She stated that her ex- will also be there to help if needed. He stated that he plans to drive himself home and feels safe doing so. He also stated that this is his 3rd time for iv abx . He has spoken with Yajaira at [facility] and he used [facility] in the past. [facility] signed and IMM served and explained. He is eager to go home. Ernestina with [facility] called me and stated that he has an outstanding balance and she will need to speak with him before they will agree to take him back. I am still waiting to hear back from [facility] that they are going to accept him and when the first availability is. CM will continue to follow and will assist as needed with dc plans/needs. ENTERED DATE: 10/07/20 9:34 CT COMMENT TYPE: Discharge Planning REVIEWER: Magnolia Augustin [facility] CAN NOT ACCEPT THE PATIENT TILL NEXT WEEK AT THE [facility] CAN NOT TAKE AN IV PATIENT AT THIS TIME I CALLED RAY WITH [facility] ASKING, BEGGING THEM TO TAKE HIM FELIX, HE WAS GOING TO TALK TO HIS BOSS AND SEE WHAT THEY CAN DO. CM TO FOLLOW AND ASSIST I AM STILL WAITING ON [facility] TO CALL ME ON A GRAY ENTERED DATE: 10/07/20 7:42 CT COMMENT TYPE: Discharge Planning REVIEWER: Magnolia Augustin PATIENT WILL BE DISCHARGING HOME WITH IV ABX AND HOME HEALTH I HAVE SENT THE ORDER FOR A GRAY QUOTE TO [facility] NOT ACCEPT THE PATIENT AT THIS TIME, [facility] CAN NOT TAKE A PATIENT TILL NEXT WEEK, [facility] DOES NOT TAKE HUMANA, I HAVE SENT THE REFERRAL TO [facility] TO SEE IF THEY CAN ACCEPT THIS PATIENT CM TO FOLLOW [facility] REVIEW SUMMARY ANTICIPATED D/C DATE: EXPECTED LOS : CASE STATUS: DCP Initiated INITIAL REVIEW: 10/01/2020 INITIAL REVIEWER: Magnolia Augustin FINAL DISCHARGE DISPOSITION: : FINAL REVIEWER: FINAL REVIEW DATE: DCP [facility] Questions & Answers QUESTION: ANSWER : PATIENT: GOSIA AMSE ENCOUNTER: [id number] MEDICAL RECORD#: [id number] ADMISSION DATE: 10/01/2020 DISCHARGE DATE: 10/07/2020 ATTENDING MD: KHALIF KAYE : AGE: 59 MARITAL STATUS: S DC PLAN ID: [id number] FACILITY: [facility] PRINTED ON: 10/07/20 16:20 CT All edits/amendments must be made on the electronic document DICTATION DATE: 10/07/201619 DIGITAL MARKETER: DAVID 10/07/20 162 RPT#: [id number] DC DATE:10/07/20 STATUS: DIS IN [facility] [address] [facility] [place] [address] END OF REPORT
--- NOTE | 2020-10-11 13:00 | MORECARE ---
CASE MANAGEMENT DISCHARGE SUMMARY PATIENT: GOSIA AMES UNIT: [id number] ADM DATE: 10/01/20 AGE: 59 : 64 SEX: M ROOM/BED: D.2214 AUTHOR: CHANTELLE,DOC PHYSICIAN: REFERRING PHYSICIAN: KHALIF JAUREGUI DO DATE OF SERVICE: 10/11/20 Case Management Discharge Planning Summary COMMENTS ENTERED DATE: 10/07/20 15:53 CT COMMENT TYPE: Discharge Planning REVIEWER: Magnolia Kamara with [facility] is here to teach the patient about iv abx ( this is his 3rd round of home IV abx) Patient also stated that Alicia Marrero RN ( patients niece ) can help with his IV abx her number [phone] I spoke with Yuki with [facility] and she stated that it was ok for [facility] to start on . We taz lab today. can draw lab on 10/14 & change dressing then resume the normal Sunday orders on 10/18/20 I have let sobia with [facility] know this. I will fax clinicals over to [facility] ENTERED DATE: 10/07/20 12:06 CT COMMENT TYPE: Discharge Planning REVIEWER: Magnolia Augustin CM met with patient to complete initial dc planning assessment. CM educated patient on the CM role and verbal consent given by patient to complete assessment. Patient lives at home by himself, but stated that he was going to be staying at his daughters home. Her address is [address] [place] [address]. She stated that her ex- will also be there to help if needed. He stated that he plans to drive himself home and feels safe doing so. He also stated that this is his 3rd time for iv abx . He has spoken with Yajaira at [facility] and he used [facility] in the past. TYE signed and IMM served and explained. He is eager to go home. Ernestina with [facility] called me and stated that he has an outstanding balance and she will need to speak with him before they will agree to take him back. I am still waiting to hear back from [facility] that they are going to accept him and when the first availability is. CM will continue to follow and will assist as needed with dc plans/needs. ENTERED DATE: 10/07/20 9:34 CT COMMENT TYPE: Discharge Planning REVIEWER: Magnolia Augustin [facility] CAN NOT ACCEPT THE PATIENT TILL NEXT WEEK AT [facility] CAN NOT TAKE AN IV PATIENT AT THIS TIME I CALLED RAY WITH [facility] ASKING, BEGGING THEM TO TAKE HIM FELIX, HE WAS GOING TO TALK TO HIS BOSS AND SEE WHAT THEY CAN DO. CM TO FOLLOW AND ASSIST I AM STILL WAITING ON [employer] TO CALL ME ON A GRAY ENTERED DATE: 10/07/20 7:42 CT COMMENT TYPE: Discharge Planning REVIEWER: Magnolia Augustin PATIENT WILL BE DISCHARGING HOME WITH IV ABX AND HOME HEALTH I HAVE SENT THE ORDER FOR A GRAY QUOTE TO [facility] CAN NOT ACCEPT THE PATIENT AT THIS TIME, [facility] CAN NOT TAKE A PATIENT TILL NEXT WEEK, [facility] DOES NOT TAKE HUMANA, I HAVE SENT THE REFERRAL TO [facility] TO SEE IF THEY CAN ACCEPT THIS PATIENT CM TO FOLLOW [facility] REVIEW SUMMARY ANTICIPATED D/C DATE: EXPECTED LOS : CASE STATUS: DCP Initiated INITIAL REVIEW: 10/01/2020 INITIAL REVIEWER: Magnolia Augustin FINAL DISCHARGE DISPOSITION: : FINAL REVIEWER: FINAL REVIEW DATE: DCP [facility] Questions & Answers QUESTION: ANSWER : PATIENT: GOSIA AMES ENCOUNTER: [id number] MEDICAL RECORD#: [id number] ADMISSION DATE: 10/01/2020 DISCHARGE DATE: 10/07/2020 ATTENDING MD: KHALFI KAYE : AGE: 59 MARITAL STATUS: S DC PLAN ID: [id number] FACILITY: [facility] PRINTED ON: 10/11/20 12:59 CT All edits/amendments must be made on the electronic document DICTATION DATE: 10/11/20 1259 STUDENT AFFAIRS VICE PRESIDENT: DAVID 10/11/20 1259 RPT#: [id number] DC DATE:10/07/20 STATUS: DIS IN [facility] [address] [place] [place] [address] END OF REPORT
--- NOTE | 2020-10-12 15:47 | MORECARE ---
CASE MANAGEMENT DISCHARGE SUMMARY PATIENT: GOSIA AMES UNIT: [id number] ADM DATE: 10/01/20 AGE: 59 : 64 SEX: M ROOM/BED: D.2214 AUTHOR: CHANTELLE,DOC PHYSICIAN: REFERRING PHYSICIAN: KHALIF JAUREGUI DO DATE OF SERVICE: 10/12/20 Case Management Discharge Planning Summary COMMENTS ENTERED DATE: 10/07/20 15:53 CT COMMENT TYPE: Discharge Planning REVIEWER: Magnolia Kamara with [facility] is here to teach the patient about iv abx ( this is his 3rd round of home IV abx) Patient also stated that Alicia Marrero RN ( patients niece ) can help with his IV abx her number [phone] I spoke with Yuki with [facility] and she stated that it was ok for [facility] to start on . We taz lab today. can draw lab on 10/14 & change dressing then resume the normal Sunday orders on 10/18/20 I have let sobia with [facility] know this. I will fax clinicals over to [facility] ENTERED DATE: 10/07/20 12:06 CT COMMENT TYPE: Discharge Planning REVIEWER: Magnolia Augustin CM met with patient to complete initial dc planning assessment. CM educated patient on the CM role and verbal consent given by patient to complete assessment. Patient lives at home by himself, but stated that he was going to be staying at his daughters home. Her address is [address] [place] [address]. She stated that her ex- will also be there to help if needed. He stated that he plans to drive himself home and feels safe doing so. He also stated that this is his 3rd time for iv abx . He has spoken with Yajaira at [facility] and he used [facility] in the past. TYE signed and IMM served and explained. He is eager to go home. Ernestina with [facility] called me and stated that he has an outstanding balance and she will need to speak with him before they will agree to take him back. I am still waiting to hear back from [facility] that they are going to accept him and when the first availability is. CM will continue to follow and will assist as needed with dc plans/needs. ENTERED DATE: 10/07/20 9:34 CT COMMENT TYPE: Discharge Planning REVIEWER: Magnolia Augustin [facility] CAN NOT ACCEPT THE PATIENT TILL NEXT WEEK AT [facility] CAN NOT TAKE AN IV PATIENT AT THIS TIME I CALLED RAY WITH [facility] ASKING, BEGGING THEM TO TAKE HIM FELIX, HE WAS GOING TO TALK TO HIS BOSS AND SEE WHAT THEY CAN DO. CM TO FOLLOW AND ASSIST I AM STILL WAITING ON [employer] TO CALL ME ON A GRAY ENTERED DATE: 10/07/20 7:42 CT COMMENT TYPE: Discharge Planning REVIEWER: Magnolia Augustin PATIENT WILL BE DISCHARGING HOME WITH IV ABX AND HOME HEALTH I HAVE SENT THE ORDER FOR A GRAY QUOTE TO [facility] CAN NOT ACCEPT THE PATIENT AT THIS TIME, [facility] CAN NOT TAKE A PATIENT TILL NEXT WEEK, [facility] DOES NOT TAKE HUMANA, I HAVE SENT THE REFERRAL TO [facility] TO SEE IF THEY CAN ACCEPT THIS PATIENT CM TO FOLLOW [facility] REVIEW SUMMARY ANTICIPATED D/C DATE: EXPECTED LOS : CASE STATUS: DCP Initiated INITIAL REVIEW: 10/01/2020 INITIAL REVIEWER: Magnolia Augustin FINAL DISCHARGE DISPOSITION: : FINAL REVIEWER: FINAL REVIEW DATE: DCP [facility] Questions & Answers QUESTION: ANSWER : PATIENT: GOSIA AMES ENCOUNTER: [id number] MEDICAL RECORD#: [id number] ADMISSION DATE: 10/01/2020 DISCHARGE DATE: 10/07/2020 ATTENDING MD: KHALIF KAYE : AGE: 59 MARITAL STATUS: S DC PLAN ID: [id number] FACILITY: [facility] PRINTED ON: 10/12/20 15:46 CT All edits/amendments must be made on the electronic document DICTATION DATE: 10/12/20 1546 COACH BUILDER: DAVID 10/12/20 1546 RPT#: [id number] DC DATE:10/07/20 STATUS: DIS IN [facility] [address] [facility] [place] [address] END OF REPORT
== END 2020-10-07 16:15 | disposition home health service (06) | DRG 501 ==
LOC: D.ER 11:13 → D.MS 14:52
PROVIDERS: Emergency Medicine; Orthopaedic Surgery; ADMIT Family Medicine; ATTEND Family Medicine
PROC: 05H633Z Insertion of Infusion Device into Left Subclavian Vein, Percutaneous Approach (ICD-10-PCS; 2020-10-02)
PROC: 0PDK0ZZ Extraction of Right Ulna, Open Approach (ICD-10-PCS; 2020-10-03)
PROC: 0R9L0ZZ Drainage of Right Elbow Joint, Open Approach (ICD-10-PCS; principal; 2020-10-03 08:00)
PROC: 05HY33Z Insertion of Infusion Device into Upper Vein, Percutaneous Approach (ICD-10-PCS; 2020-10-07)
DX: M00.9 Pyogenic arthritis, unspecified (principal); M86.9 Osteomyelitis, unspecified; M06.9 Rheumatoid arthritis, unspecified; I25.2 Old myocardial infarction; Z95.5 Presence of coronary angioplasty implant and graft; I25.10 Atherosclerotic heart disease of native coronary artery without angina pectoris; I73.9 Peripheral vascular disease, unspecified; J44.9 Chronic obstructive pulmonary disease, unspecified; K21.9 Gastro-esophageal reflux disease without esophagitis; E16.2 Hypoglycemia, unspecified

== ENCOUNTER → 2020-10-14 12:28 | Outpatient (CLI) | payer MEDICARE ==
[2020-10-04 14:18] VITALS: BMI 36.0
[2020-10-14 16:13] LABS: BASOPHILS 1.4 % (0-2); EOSINOPHILS 3.7 % (0-7); HEMATOCRIT 40.7 % (42.0-54.0); HEMOGLOBIN 13.6 g/dL (13.5-17.5); MCH 30.8 pg (26.0-34.0); MCHC 33.3 g/dL (31.0-37.0); MCV 92.7 fL (80.0-100.0); MEAN PLATELET VOLUME 7.5 fL (7.4-10.4); MONOCYTES 5.6 % (2-11); NEUTROPHILS 59.3 % (40-80); RDW 15.9 % (11.5-14.5); WBC 10.1 10x3/uL (4.8-10.8)
[2020-10-14 16:20] LABS: PLATELET COUNT 509 10x3/uL (130-400)
[2020-10-14 16:38] LABS: C-REACTIVE PROTEIN 2.4 mg/dL (0.0-0.9); CREATININE - SERUM 1.1 mg/dL (0.6-1.3); VANCOMYCIN - TROUGH 10.7 ug/mL (10.0-20.0)
[2020-10-14 17:21] LABS: ERYTHROCYTE SEDIMENTATION RATE 73 mm/hr (0-20)
== END | disposition home or self-care (01) ==
LOC: D.LABREF 12:28
PROVIDERS: ATTEND Surgery
DX: M00.821 Arthritis due to other bacteria, right elbow (principal)

== ENCOUNTER → 2020-10-18 10:45 | Outpatient (CLI) | payer MEDICARE ==
[2020-10-04 14:18] VITALS: BMI 36.0
[2020-10-18 11:01] LABS: BASOPHILS 0.9 % (0-2); EOSINOPHILS 9.1 % (0-7); HEMATOCRIT 51.1 % (42.0-54.0); HEMOGLOBIN 17.2 g/dL (13.5-17.5); LYMPHOCYTES 30.1 % (15-50); MCH 31.1 pg (26.0-34.0); MCHC 33.6 g/dL (31.0-37.0); MCV 92.5 fL (80.0-100.0); MEAN PLATELET VOLUME 7.8 fL (7.4-10.4); NEUTROPHILS 55.9 % (40-80); RBC 5.53 10x6/uL (4.20-6.10); RDW 15.7 % (11.5-14.5); WBC 5.8 10x3/uL (4.8-10.8)
[2020-10-18 11:02] LABS: PLATELET COUNT 321 10x3/uL (130-400)
[2020-10-18 11:10] LABS: CREATININE - SERUM 1.1 mg/dL (0.6-1.3); VANCOMYCIN - TROUGH 10.2 ug/mL (10.0-20.0)
[2020-10-18 13:44] LABS: ERYTHROCYTE SEDIMENTATION RATE 6 mm/hr (0-20)
== END | disposition home or self-care (01) ==
LOC: D.LABREF 10:45
PROVIDERS: ATTEND Surgery
DX: M00.821 Arthritis due to other bacteria, right elbow (principal); J44.9 Chronic obstructive pulmonary disease, unspecified

== ENCOUNTER → 2020-10-27 10:01 | Outpatient (CLI) | payer MEDICARE ==
[2020-10-04 14:18] VITALS: BMI 36.0
[2020-10-27 11:18] LABS: CREATININE - SERUM 1.3 mg/dL (0.6-1.3); VANCOMYCIN - TROUGH 17.1 ug/mL (10.0-20.0)
== END | disposition home or self-care (01) ==
LOC: D.LABREF 10:01
PROVIDERS: ATTEND Surgery
DX: M00.821 Arthritis due to other bacteria, right elbow (principal)